=== PATIENT | male | born 1955 | race African-American/Black ===

== ENCOUNTER 2022-07-12 10:23 | Outpatient (CLI) | payer OTHER, SELFPAY ==
[2022-07-12 19:48] LABS: Basophils Percent Auto 0.7 % (0.2-1.2); Eosinophils Percent Auto 0.2 % (0-4.4); Hematocrit 48.3 % (42.0-52.0); Hemoglobin 15.7 g/dL (14.0-18.0); Immature Granulocyte Absolute 0.02 K/mm3 (0.00-0.031); Immature Granulocyte Percent A 0.3 % (0-0.5); Immature Platelet Fraction Pct 3.3 % (0.9-11.2); Lymphocytes Absolute Auto 1.31 K/mm3 (0.9-3.2); Lymphocytes Percent Auto 21.5 % (18.3-44.2); Mean Corpuscular HGB Conc 32.5 g/dl (32-36); Mean Corpuscular Hemoglobin 26.8 pg (26-34); Mean Corpuscular Volume 82.4 fl (80-100); Mean Platelet Volume 10.5 fl (7.4-10.4); Monocytes Absolute Auto 0.6 K/mm3 (0.1-0.6); Monocytes Percent Auto 10.2 % (2.6-8.5); Neutrophils Absolute Auto 4.1 K/mm3 (1.3-6.7); Neutrophils Percent Auto 67.1 % (45.5-73.1); Platelet Count Result 134 k/mm3 (150-375); Red Blood Count 5.86 M/mm3 (4.6-6.20); Red Cell Distribution Width 15.9 % (11.5-14.5); White Blood Count 6.1 K/mm3 (4.5-10.0)
[2022-07-12 19:52] LABS: Alanine Aminotransferase 26 U/L (6-50); Albumin Level 4.3 g/dL (3.5-5.1); Alkaline Phosphatase 68 U/L (38-126); Anion Gap 13 mmol/L (8-16); Aspartate Amino Transferase 45 U/L (17-59); Bilirubin,Total 2.9 mg/dL (0.2-1.3); Blood Urea Nitrogen 15 mg/dL (9-20); Calcium 9.3 mg/dL (8.4-10.2); Carbon Dioxide 24 mmol/L (22-30); Chloride 103 mmol/L (98-107); Cholesterol 194 mg/dL (0-200); Estimated Glomerular Filt Rate > 60; Glucose 94 mg/dL (65-110); HDL Direct 91 mg/dL; Potassium 3.8 mmol/L (3.4-5.0); Sodium 140 mmol/L (137-145); Triglycerides 66 mg/dL (<150)
[2022-07-12 19:58] LABS: Hemoglobin A1C 4.7 % (<5.7)
[2022-07-12 20:03] LABS: LDL Cholesterol Direct 75 mg/dL
[2022-07-12 20:19] LABS: Prostate Specific Antigen 1.1 ng/mL (< OR = 4.0)
== END 2022-07-12 10:24 | disposition home or self-care (01) ==
LOC: ANHGOSHLAB 10:29
PROVIDERS: PCP Family Medicine; Visit Provider Family Medicine
DX: Z12.5 Encounter for screening for malignant neoplasm of prostate (principal); I10 Essential (primary) hypertension; E78.5 Hyperlipidemia, unspecified; R53.83 Other fatigue; R73.01 Impaired fasting glucose
CPT/HCPCS: 36415; 80053; 80061; 83036; 84153; 85025; 85055; G0103

== ENCOUNTER 2022-11-07 09:45 | Outpatient (CLI) | payer OTHER, SELFPAY ==
[2022-11-07 21:14] LABS: Alanine Aminotransferase 28 U/L (6-50); Albumin Level 4.3 g/dL (3.5-5.1); Alkaline Phosphatase 76 U/L (38-126); Anion Gap 8 mmol/L (8-16); Aspartate Amino Transferase 51 U/L (17-59); Bilirubin Indirect 1.8 mg/dL (0-1.1); Blood Urea Nitrogen 21 mg/dL (9-20); Calcium 9.4 mg/dL (8.4-10.2); Carbon Dioxide 31 mmol/L (22-30); Chloride 100 mmol/L (98-107); Estimated Glomerular Filt Rate > 60; Glucose 99 mg/dL (65-110); Potassium 3.2 mmol/L (3.4-5.0); Sodium 139 mmol/L (137-145)
[2022-11-08 03:21] LABS: Iron 164 ug/dL (49-181)
[2022-11-08 03:31] LABS: Percent Iron Saturation 36 % (20-50)
== END 2022-11-07 09:46 | disposition home or self-care (01) ==
LOC: ANHGOSHLAB 09:46
PROVIDERS: PCP Family Medicine; Visit Provider Family Medicine
DX: E80.6 Other disorders of bilirubin metabolism (principal); R79.89 Other specified abnormal findings of blood chemistry; Z13.228 Encounter for screening for other metabolic disorders; R74.01 Elevation of levels of liver transaminase levels
CPT/HCPCS: 36415; 80053; 81256; 82248; 82728; 83540; 83550

== ENCOUNTER 2023-03-14 14:13 | Outpatient (CLI) | payer OTHER, SELFPAY ==
[2023-03-14 15:23] LABS: Basophils Percent Auto 0.5 % (0.2-1.2); Eosinophils Percent Auto 0.4 % (0-4.4); Hematocrit 44.7 % (42.0-52.0); Hemoglobin 14.8 g/dL (14.0-18.0); Immature Granulocyte Absolute 0.03 K/mm3 (0.00-0.031); Immature Granulocyte Percent A 0.4 % (0-0.5); Lymphocytes Absolute Auto 1.97 K/mm3 (0.9-3.2); Lymphocytes Percent Auto 25.1 % (18.3-44.2); Mean Corpuscular HGB Conc 33.1 g/dl (32-36); Mean Corpuscular Hemoglobin 24.9 pg (26-34); Mean Corpuscular Volume 75.3 fl (80-100); Mean Platelet Volume 10.3 fl (7.4-10.4); Monocytes Absolute Auto 1.1 K/mm3 (0.1-0.6); Monocytes Percent Auto 14.2 % (2.6-8.5); Neutrophils Absolute Auto 4.7 K/mm3 (1.3-6.7); Neutrophils Percent Auto 59.4 % (45.5-73.1); Platelet Count Result 203 k/mm3 (150-375); Red Blood Count 5.94 M/mm3 (4.6-6.20); Red Cell Distribution Width 15.9 % (11.5-14.5); White Blood Count 7.9 K/mm3 (4.5-10.0)
[2023-03-14 19:06] LABS: Alanine Aminotransferase 39 U/L (6-50); Albumin Level 4.3 g/dL (3.5-5.1); Alkaline Phosphatase 104 U/L (38-126); Anion Gap 9 mmol/L (8-16); Aspartate Amino Transferase 69 U/L (17-59); Bilirubin,Total 3.4 mg/dL (0.2-1.3); Blood Urea Nitrogen 34 mg/dL (9-20); Calcium 10.1 mg/dL (8.4-10.2); Carbon Dioxide 37 mmol/L (22-30); Chloride 91 mmol/L (98-107); Estimated Glomerular Filt Rate > 60; Glucose 109 mg/dL (65-110); Potassium 2.8 mmol/L (3.4-5.0); Sodium 137 mmol/L (137-145)
== END 2023-03-14 14:14 | disposition home or self-care (01) ==
LOC: ANHGOSHLAB 14:14
PROVIDERS: PCP Family Medicine; Visit Provider Family Medicine
DX: R53.83 Other fatigue (principal); Z13.228 Encounter for screening for other metabolic disorders
CPT/HCPCS: 36415; 80053; 85025

== ENCOUNTER → 2023-03-19 07:56 | Outpatient (CLI) | payer OTHER, SELFPAY ==
--- NOTE | ~2023-03-19 | US_ITS ---
Limited Abdominal Sonogram: Real-time sonographic imaging of the right upper quadrant was performed. Clinical History: Increasing total bilirubin Findings: The liver appears mildly echogenic, with no evidence of mass lesion or bile duct dilatatio n. Main portal vein demonstrates normal direction of flow. The gallbladder is well distended, and con tains multiple gallstones. No gallbladder wall thickening. The common bile duct measures 4 mm. The v isualized pancreas, aorta, and IVC are unremarkable. Impression: Cholelithiasis. Diffuse fatty infiltration of liver. Reviewed, dictated and finalized at location M. Impression: Cholelithiasis. Diffuse fatty infiltration of liver.
== END ==
PROVIDERS: PCP Family Medicine; Visit Provider Family Medicine
DX: E80.6 Other disorders of bilirubin metabolism (principal); K80.20 Calculus of gallbladder without cholecystitis without obstruction; K76.0 Fatty (change of) liver, not elsewhere classified
CPT/HCPCS: 76705

== ENCOUNTER 2023-09-23 09:36 | Outpatient (CLI) | payer OTHER, SELFPAY ==
[2023-09-23 20:07] LABS: Anion Gap 9 mmol/L (8-16); Blood Urea Nitrogen 22 mg/dL (9-20); Calcium 9.7 mg/dL (8.4-10.2); Carbon Dioxide 35 mmol/L (22-30); Chloride 93 mmol/L (98-107); Estimated Glomerular Filt Rate 52; Glucose 91 mg/dL (65-110); Potassium 2.7 mmol/L (3.4-5.0); Sodium 137 mmol/L (137-145)
== END 2023-09-23 09:37 | disposition home or self-care (01) ==
LOC: ANHGOSHLAB 09:37
PROVIDERS: PCP Family Medicine; Visit Provider Family Medicine
DX: Z13.228 Encounter for screening for other metabolic disorders (principal)
CPT/HCPCS: 36415; 80048

== ENCOUNTER 2023-10-10 08:57 | Outpatient (CLI) | payer OTHER, SELFPAY ==
[2023-10-10 12:49] LABS: Anion Gap 9 mmol/L (8-16); Blood Urea Nitrogen 25 mg/dL (9-20); Calcium 9.4 mg/dL (8.4-10.2); Carbon Dioxide 23 mmol/L (22-30); Chloride 104 mmol/L (98-107); Estimated Glomerular Filt Rate > 60; Glucose 99 mg/dL (65-110); Potassium 4.7 mmol/L (3.4-5.0); Sodium 136 mmol/L (137-145)
== END 2023-10-10 08:58 | disposition home or self-care (01) ==
LOC: ANHGOSHLAB 08:59
PROVIDERS: PCP Family Medicine; Visit Provider Family Medicine
DX: Z13.228 Encounter for screening for other metabolic disorders (principal)
CPT/HCPCS: 36415; 80048

== ENCOUNTER 2024-03-30 09:17 | Outpatient (CLI) | payer OTHER, SELFPAY ==
[2024-03-30 13:11] LABS: Alanine Aminotransferase 31 U/L (6-50); Albumin Level 3.9 g/dL (3.5-5.1); Alkaline Phosphatase 74 U/L (38-126); Anion Gap 9 mmol/L (4-12); Aspartate Amino Transferase 69 U/L (17-59); Bilirubin,Total 1.6 mg/dL (0.2-1.3); Blood Urea Nitrogen 21 mg/dL (9-20); Calcium 9.1 mg/dL (8.4-10.2); Carbon Dioxide 29 mmol/L (22-30); Chloride 99 mmol/L (98-107); Cholesterol 119 mg/dL (0-200); Estimated Glomerular Filt Rate > 60; Glucose 106 mg/dL (65-110); HDL Direct 70 mg/dL; Potassium 3.8 mmol/L (3.4-5.0); Sodium 137 mmol/L (137-145); Triglycerides 62 mg/dL (<150)
[2024-03-30 13:15] LABS: Basophils Percent Auto 0.3 % (0.2-1.2); Eosinophils Percent Auto 0.3 % (0-4.4); Hematocrit 33.6 % (42.0-52.0); Hemoglobin 10.8 g/dL (14.0-18.0); Immature Granulocyte Absolute 0.02 K/mm3 (0.00-0.031); Immature Granulocyte Percent A 0.3 % (0-0.5); Immature Platelet Fraction Pct 2.8 % (0.9-11.2); Lymphocytes Absolute Auto 1.81 K/mm3 (0.9-3.2); Lymphocytes Percent Auto 28.5 % (18.3-44.2); Mean Corpuscular HGB Conc 32.1 g/dl (32-36); Mean Corpuscular Hemoglobin 26.3 pg (26-34); Mean Corpuscular Volume 81.8 fl (80-100); Monocytes Absolute Auto 0.9 K/mm3 (0.1-0.6); Monocytes Percent Auto 14.2 % (2.6-8.5); Neutrophils Absolute Auto 3.6 K/mm3 (1.3-6.7); Neutrophils Percent Auto 56.4 % (45.5-73.1); Platelet Count Result 146 k/mm3 (150-375); Red Blood Count 4.11 M/mm3 (4.6-6.20); Red Cell Distribution Width 18.6 % (11.5-14.5); White Blood Count 6.3 K/mm3 (4.5-10.0)
[2024-03-30 13:22] LABS: LDL Cholesterol Direct 45 mg/dL
== END 2024-03-30 09:18 | disposition home or self-care (01) ==
PROVIDERS: PCP Family Medicine; Visit Provider Family Medicine
DX: R53.83 Other fatigue (principal); E78.5 Hyperlipidemia, unspecified; I10 Essential (primary) hypertension; Z12.5 Encounter for screening for malignant neoplasm of prostate; Z13.228 Encounter for screening for other metabolic disorders
CPT/HCPCS: 36415; 80053; 80061; 84153; 85025; 85055; G0103

== ENCOUNTER 2024-04-05 08:10 | Outpatient (CLI) | payer OTHER, SELFPAY ==
[2024-04-05 15:06] LABS: Iron 122 ug/dL (49-181)
[2024-04-05 15:16] LABS: Percent Iron Saturation 41 % (20-50)
[2024-04-05 16:33] LABS: Folic Acid 3.2 ng/mL (2.76->20)
== END 2024-04-05 08:11 | disposition home or self-care (01) ==
PROVIDERS: PCP Family Medicine; Visit Provider Family Medicine
DX: D64.9 Anemia, unspecified (principal); D50.9 Iron deficiency anemia, unspecified
CPT/HCPCS: 36415; 82607; 82728; 82746; 83540; 83550

== ENCOUNTER 2024-10-05 11:34 | Outpatient (CLI) | payer OTHER, SELFPAY ==
[2024-10-05 13:47] LABS: Basophils Percent Auto 0.5 % (0.2-1.2); Eosinophils Percent Auto 0.5 % (0-4.4); Hematocrit 41.5 % (42.0-52.0); Hemoglobin 13.1 g/dL (14.0-18.0); Immature Granulocyte Absolute 0.01 K/mm3 (0.00-0.031); Immature Granulocyte Percent A 0.2 % (0-0.5); Immature Platelet Fraction Pct 3.2 % (0.9-11.2); Lymphocytes Absolute Auto 1.82 K/mm3 (0.9-3.2); Lymphocytes Percent Auto 27.7 % (18.3-44.2); Mean Corpuscular HGB Conc 31.6 g/dl (32-36); Mean Corpuscular Hemoglobin 25.8 pg (26-34); Mean Corpuscular Volume 81.7 fl (80-100); Mean Platelet Volume 11.4 fl (7.4-10.4); Monocytes Absolute Auto 0.7 K/mm3 (0.1-0.6); Monocytes Percent Auto 10.9 % (2.6-8.5); Neutrophils Percent Auto 60.2 % (45.5-73.1); Platelet Count Result 119 k/mm3 (150-375); Red Blood Count 5.08 M/mm3 (4.6-6.20); Red Cell Distribution Width 14.9 % (11.5-14.5); White Blood Count 6.6 K/mm3 (4.5-10.0)
[2024-10-05 14:08] LABS: Alanine Aminotransferase 23 U/L (6-50); Albumin Level 3.9 g/dL (3.5-5.1); Alkaline Phosphatase 87 U/L (38-126); Anion Gap 7 mmol/L (4-12); Aspartate Amino Transferase 68 U/L (17-59); Bilirubin,Total 1.4 mg/dL (0.2-1.3); Blood Urea Nitrogen 14 mg/dL (9-20); Calcium 9.1 mg/dL (8.4-10.2); Carbon Dioxide 33 mmol/L (22-30); Chloride 100 mmol/L (98-107); Estimated Glomerular Filt Rate > 60; Glucose 92 mg/dL (65-110); Potassium 3.6 mmol/L (3.4-5.0); Sodium 140 mmol/L (137-145)
[2024-10-05 14:34] LABS: Vitamin D 25 Hydroxy < 12.8 ng/mL
[2024-10-05 15:09] LABS: Hemoglobin A1C 4.6 % (<5.7)
--- OUTSIDE RECORDS SUMMARY | 2024-10-07 17:55 | XMS_ITS | CONTINUITY OF CARE DOCUMENT ---
Author Name [email or web address] Address Unknown Organization [facility] Address [address] [place] [address] Phone [phone] Care Team Providers Care Flatwork Tier Name Role Phone Jesus Moseley MD Unavailable PITA DAWKINS MD Unavailable [phone] PITA DAWKINS MD Unavailable [phone] PROBLEMS Condition Status Date Provider Notes CORONARY ARTERY DISEASE, FAMILY HX active D anah Carlos HYPERLIPIDEMIA active Marla Carlos CELLULITIS active Marla Carlos GOUT, HX OF active Marla Carlos ENCOUNTERS Date Type Provider Location Encounter Diagnosis - In-person encounter Office Visit Jesus Moseley MD [facility] VITAL SIGNS Date Observation Value Provider blood pressure, diastolic, left arm 79 mm [Hg] Kvng [place] blood pressure, systolic, left arm 127 mm [Hg] Kvng [place] blood pressure, diastolic 79 mm[Hg] Gracie seph [place] blood pressure, systolic 124 mm[Hg] Lukasz eph [place] pulse rate 79 /min [facility] [place] oxygen saturation, oximetry 97 % K[facility] [place] respiratory rate E&M 16 /min [facility] [place] weight E&M 237 [lb_av] K[facility]ng [place] ALLERGIES Allergy Name Onset Date Reaction Criticality Status LISINOPRIL High Criticality active HISTORY OF MEDICATION USE Medication Status Instructions Dates Provider Indications Com ments CLONIDINE HCL 0.1 MG ORAL TABLET completed 1 tablet by mouth 2 daily - Jesus Mosleey MD NORVASC 10 MG ORAL TABLET active ONE TAB. DAILY Jesus Moseley MD HYDROCHLOROTHIAZIDE 25 MG ORAL TABLET active 1 tablet by mouth daily Kvng Hernandez SOCIAL HISTORY Date Observation Value Provider social history E&M Marital Statu s: L ronel with family/friends E thnicity: Jesus Moseley MD physical exercise, f requency, days per week yes [employer] caffeine use, averag e drinks per day no [employer] alcohol use, average drinks per day social basis only [employer] smoking status Non-smoker [employer] MENTAL STATUS Date Observation Value Provider assessment of judgme nt and insight E&M Alert and oriented to time, place and person. Mood and affect are normal. Jesus Moseley MD INSURANCE PROVIDERS Payer name Policy type / Coverage type [place] red republican ID [facility] [id number] 1 TREATMENT PLAN Date Name Performer Follow-up on tests: T he following medications were removed from the medication list: Clonidine Hcl 0.1 Mg Tabs (Clonidine hcl) ..... 1 tablet by mouth 2 daily His updated medication list for this problem includes: Hydrochlorothiazide 25 Mg Tabs (Hydrochlorothiazide) ..... 1 tablet by mouth daily Norvasc 10 Mg Tabs (Amlodipine besylate) ..... One tab. daily w ill have him taper his clonidine. Jesus Moseley MD Follow-up on tests Jesus Moseley MD
--- OUTSIDE RECORDS SUMMARY | 2024-10-07 17:55 | XMS_ITS | Clinical Summary ---
Author Organization [facility] Address [address] [place] [address] Care Team Providers Care Band Reamer Machine Operator Name Role Phone Hector Rhodes MD Primary Care Provider [phone] [facility]non-owned Affiliates and Associated Physician Practices is amultiple site organization consisting of ambulatory clinics and hospital sitesin [place], [place], [place] and [place]. This disclosure is being madepursuant to the Care Everywhere program and may not contain all information available regarding this patient. Last updated 18.[employer] Allergies No known active allergies Medications * Be aware that medications may not be up to date on this document. Alwaysverify current medications with the patient. Medication Sig Dispensed Refills Start Date End Date Status allopurinol (ZYLOPRIM) 300 MG tablet allopurinol 300 mg tablet DAILY Active amLODIPine (NORVASC) 5 MG tablet amlodipine 5 mg tablet DAILY Active atenolol (TENORMIN) 25 MG tablet atenolol 25 mg tablet DAILY Active atorvastatin (LIPITOR) 40 MG tablet atorvastatin 40 mg tablet HS Active chlorthalidone (HYGROTON) 25 MG tablet Take 1 tablet every day by oral route. Active Ossian-3 Fatty Acids (FISH OIL) 1000 MG capsule Fish Oil DAILY Active Active Problems Problem Noted Date Diagnosed Date Alcoholic cirrhosis of liver without ascites Overview (03/05/2019): 03/05/19 Fibroscan CAP 313, E 18.8 kPa Social History Tobacco Use Types Packs/Day Years Used Date Smoking Tobacco: Never Smokeless Tobacco: Never Alcohol Use Standard Drinks/Week Comments Yes 7 (1 standard drink = 0.6 oz pur e alcohol) vodka/water Sex and Gender Information Value Date Recorded Sex Assigned at Not on file Gender Identity Not on file Sexual Orientation Not on file Last Filed Vital Signs Vital Sign Reading Time Taken Comments Blood Pressure 115/64 08/10/2019 9:25 AM SLIP PRESSER Pulse 76 08/10/2019 9:25 AM SLIP PRESSER Temperature 37 ??C (98.6 ??F) 08/10/2019 9:25 AM SLIP PRESSER Respiratory Rate 18 08/10/2019 9:25 AM SLIP PRESSER Oxygen Saturation 98% 08/10/2019 9:25 AM SLIP PRESSER Inhaled Oxygen Concentration - - Weight 96.3 kg (212 lb 4.8 oz) 08/10/2019 9:25 A M SLIP PRESSER Height 193 cm (6' 4 ) 08/10/2019 9:25 AM SLIP PRESSER Body Mass Index 25.84 08/10/2019 9:25 AM SLIP PRESSER Plan of Treatment Health Maintenance Due Date Last Done Comments COLOGUARD (AGES 45-75) - COL ON CA SCREENING 1953 COLON MONITORING 1953 COLONOSCOPY - COLON CA SCREENING 1953 CT COLONOGRAPHY - COLON CA SCREENING 1953 Colorectal Cancer Screening 1953 FIT - COLON CA SCREENING 1953 FLEX SIG - COLON CA SCREENING 1953 MEDICARE AWV ? 12 MONTHS 1953 HEPATITIS C SCREENING 10/20/1971 DTAP/TDAP/TD VACCINES (1 - Tdap) 1972 PNEUMOCOCCAL VACCINE 50+ (1 of 2 - PCV) 1972 ZOSTER VACCINE (1 of 2) 2003 HEPATITIS B VACCINE (1 of 3 - Risk 3-dose series) 2013 Respiratory Syncytial Virus (RSV) Vaccine Pt: or over 60 yrs (1 - Risk 60-74 years 1-dose series) 2013 SCREENING FOR DIABETES 03/05/2022 03/05/2019 COVID-19 VACCINE (1 - 2023-2 5 season) 2024 INFLUENZA VACCINE (#1) 2024 6, 09/20/2014, 07/08/2013 DEPRESSION SCREENING 09/15/2024 HIB VACCINE Aged Out No longer eligi ble based on patient's age to complete this topic HPV VACCINE Aged Out No longer eligi ble based on patient's age to complete this topic MENINGOCOCCAL (Group B) VACCINE Aged Out No longer eligible b ased on patient's age to complete this topic MENINGOCOCCAL VACCINE Aged Out No darrius catherine eligible based on patient's age to complete this topic Goals Goal Patient Goal Type Associated Problems Recent Progress Patient-Stated? Author Medication Management General On track( 019 9:32 AM SLIP PRESSER) Ramu Celestin, RN Note: Expected end date: Interventions: Take all medications as prescribed Let your doctor know right away about any changes in your medications Make sure to request a refill of your medication at least one week prior to your last dose Procedures Procedure Name Priority Date/Time Associated Diagnosis Comments COMPREHENSIVE METABOLIC PANEL Routine 03/05/2019 12:09 PM CDT Cirrhosis of liver without ascites, unspecified hepatic cirrhosis type (HCC) from Last 3 Months or Most Recently Relevant to Health Maintenance Results * (ABNORMAL) COMPREHENSIVE METABOLIC PANEL (03/05/2019 12:09 PM CDT) BUN 14 7 - 26 mg/dL 03/05/2019 1:[address] [facility] Creatinine 1.0 0.6 - 1.2 mg/dL 03/05/2019 1:48 PM [facility] Sodium 135(L) 136 - 145 mmol/L 03/05/2019 1:[address] [facility] Potassium 3.3(L) 3.5 - 4.5 mmol/L 03/05/2019 1:[address] [facility] Chloride 96(L) 98 - 107 mmol/L 03/05/2019 1:[address] [facility] CO2 25 22 - 29 mmol/L 03/05/2019 1:[address] [facility] Glucose 88 70 - 115 mg/dL 03/05/2019 1:[address] [facility] Calcium 10.1 8.4 - 10.2 mg/dL 03/05/2019 1:[address] [facility] Protein Total 8.1 6.0 - 8.3 g/dL 03/05/2019 1:[address] [facility] Albumin 3.6 3.4 - 5.0 g/dL 03/05/2019 1:48 PM [facility] Bilirubin Total 3.1(H) 0.2 - 1.2 mg/dL 03/05/2019 1:48 PM [facility] Alkaline Phosphatase 84 40 - 150 Units/L 03/05/2019 1:48 PM [facility] ALT 30 0 - 55 Units/L 03/05/2019 1:48 PM [facility] AST 48(H) 5 - 34 Units/L 03/05/2019 1:48 PM [facility] Anion Gap 17 8 - 18 03/05/2019 1:48 PM [facility] BUN/Creatinine Ratio 14 7 - 23 03/05/2019 1:48 PM [facility] Osmolality Calculated 280 270 - 300 mOsm/kg 03/05/2019 1:48 PM [facility] Albumin/Globulin Ratio 0.8(L) 1.1 - 2.3 03/05/2019 1:48 PM [facility] eGFR >60 >60 mL/min/1.7 3 m2 03/05/2019 1:48 PM [facility] Blood BLOOD SPECIMEN / Unknown Lab Venipuncture / Unknown 03/05/2019 12:09 PM CDT 03/05/2019 12:33 PM CDT Robel Ervin MD LAB - CHEMISTRY ORDERABLES [facility] [address] [place] [address] from Last 3 Months or Most Recently Relevant to Health Maintenance Care Teams Band Reamer Machine Operator Relationship Specialty Start Date End Date Hector Rhodes MD PCP - General Internal Medicine 12/17/18
--- OUTSIDE RECORDS SUMMARY | 2024-10-07 17:55 | XMS_ITS | Referral Summary ---
Author Organization [facility] Address [address] [place] [address] Care Team Providers Care Supervisor Special Services Name Role Phone Hector Rhodes MD Primary Care Provider [phone] Source Comments [facility],non-owned Affiliates and Associated Physician Practices is amultiple site organization consisting of ambulatory clinics and hospital sitesin [place], [place]. This disclosure is being madepursuant to the Care Everywhere program and may not contain all information available regarding this patient. Last updated 18.[employer] Allergies No known active allergies Medications * [...] tablet every day by oral route. Active Cuervo-3 Fatty Acids (FISH OIL) 1000 MG capsule [...] Comments Blood Pressure 115/64 08/10/2019 9:25 AM DOUBLE HEAD MACHINE OPERATOR Pulse 76 08/10/2019 9:25 AM DOUBLE HEAD MACHINE OPERATOR Temperature 37 ??C (98.6 ??F) 08/10/2019 9:25 AM DOUBLE HEAD MACHINE OPERATOR Respiratory Rate 18 08/10/2019 9:25 AM DOUBLE HEAD MACHINE OPERATOR Oxygen Saturation 98% 08/10/2019 9:25 AM DOUBLE HEAD MACHINE OPERATOR Inhaled Oxygen Concentration - - Weight 96.3 kg (212 lb 4.8 oz) 08/10/2019 9:25 A M DOUBLE HEAD MACHINE OPERATOR Height 193 cm (6' 4 ) 08/10/2019 9:25 AM DOUBLE HEAD MACHINE OPERATOR Body Mass Index 25.84 08/10/2019 9:25 AM DOUBLE HEAD MACHINE OPERATOR Plan of Treatment Not on file Goals Goal Patient Goal Type Associated Problems Recent Progress Patient-Stated? Author Medication Management General On track( 019 9:32 AM DOUBLE HEAD MACHINE OPERATOR) Ramu Celestin, RN Note: Expected end date: [...] 7 - 26 mg/dL 03/05/2019 1:48 PM [facility] Creatinine 1.0 0.6 - 1.2 mg/dL 03/05/2019 1:48 PM [facility] Sodium 135(L) 136 - 145 mmol/L 03/05/2019 1:48 PM [facility] Potassium 3.3(L) 3.5 - 4.5 mmol/L 03/05/2019 1:48 PM [facility] Chloride 96(L) 98 - 107 mmol/L 03/05/2019 1:48 PM [facility] CO2 25 22 - 29 mmol/L 03/05/2019 1:48 PM [facility] Glucose 88 70 - 115 mg/dL 03/05/2019 1:48 PM [facility] Calcium 10.1 8.4 - 10.2 mg/dL 03/05/2019 1:48 PM [facility] Protein Total 8.1 6.0 - 8.3 g/dL 03/05/2019 1:48 PM [facility] Albumin 3.6 3.4 - 5.0 g/dL 03/05/2019 1:48 PM [facility] Bilirubin Total 3.1(H) 0.2 - 1.2 mg/dL 03/05/2019 1:48 PM [facility] Alkaline Phosphatase 84 40 - 150 Units/L 03/05/2019 1:48 PM [facility] ALT 30 0 - 55 Units/L 03/05/2019 1:48 PM [facility] AST 48(H) 5 - 34 Units/L 03/05/2019 1:48 PM [facility] Anion Gap 17 8 - 18 03/05/2019 1:48 PM [facility] BUN/Creatinine Ratio 14 7 - 23 03/05/2019 1:48 PM [facility] Osmolality Calculated 280 270 - 300 mOsm/kg 03/05/2019 1:48 PM [facility] Albumin/Globulin Ratio 0.8(L) 1.1 - 2.3 03/05/2019 1:48 PM [facility] eGFR >60 >60 mL/min/1.7 3 m2 03/05/2019 1:48 PM [facility] Blood BLOOD SPECIMEN / Unknown Lab Venipuncture / Unknown 03/05/2019 12:09 PM CDT 03/05/2019 12:33 PM T Robel Ervin MD LAB - CHEMISTRY ORDERABLES [facility] [address] [place] [address], [facility] [phone] from Last 3 Months or Most Recently Relevant to Health Maintenance Care Teams Supervisor Special Services Relationship Specialty Start Date End Date Hector Rhodes MD PCP - General Internal Medicine 12/17/18
--- OUTSIDE RECORDS SUMMARY | 2024-10-07 17:56 | XMS_ITS | Patient Health Summary ---
Author Organization [facility] [employer] Address [address] [place] [address] Care Team Providers Care Programming Specialist Name Role Phone Hector Rhodes MD Primary Care Provider [phone] Note from [facility],non-owned Affiliates and Associated Physician Practices is amultiple site organization consisting of ambulatory clinics and hospital sitesin [place], [place], [place] and [place]. This disclosure is being madepursuant to the Care Everywhere program and may not contain all information available regarding this patient. Last updated 18.[facility] [employer] Allergies No known active allergies Medications * Be aware that medications may not be up to date on this document. Alwaysverify current medications with the patient. * allopurinol (ZYLOPRIM) 300 MG tablet allopurinol 300 mg tablet DAILY * amLODIPine (NORVASC) 5 MG tablet amlodipine 5 mg tablet DAILY * atenolol (TENORMIN) 25 MG tablet atenolol 25 mg tablet DAILY * atorvastatin (LIPITOR) 40 MG tablet atorvastatin 40 mg tablet HS * chlorthalidone (HYGROTON) 25 MG tablet Take 1 tablet every day by oral route. * [place]-3 Fatty Acids (FISH OIL) 1000 MG capsule Fish Oil DAILY Active Problems Problem Noted Date Diagnosed Date Alcoholic cirrhosis of liver without ascites Social History Tobacco Use Types Packs/Day Years [...] Comments Blood Pressure 115/64 08/10/2019 9:25 AM TRAINMASTER Pulse 76 08/10/2019 9:25 AM TRAINMASTER Temperature 37 ??C (98.6 ??F) 08/10/2019 9:25 AM TRAINMASTER Respiratory Rate 18 08/10/2019 9:25 AM TRAINMASTER Oxygen Saturation 98% 08/10/2019 9:25 AM TRAINMASTER Inhaled Oxygen Concentration - - Weight 96.3 kg (212 lb 4.8 oz) 08/10/2019 9:25 A M TRAINMASTER Height 193 cm (6' 4 ) 08/10/2019 9:25 AM TRAINMASTER Body Mass Index 25.84 08/10/2019 9:25 AM TRAINMASTER Procedures * CT LIVER ELASTOGRAPHY(Performed 03/05/2019) Performed for Cirrhosis of liver without ascites, unspecified hepatic cirrhosis type (HCC) * CHRISTOPHER STAINING PATTERNS REFLEXED(Performed 03/05/2019) Performed for Cirrhosis of liver without ascites, unspecified hepatic cirrhosis type (HCC) * PT-INR [facility](Performed 03/05/2019) Performed for Cirrhosis of liver without ascites, unspecified hepatic cirrhosis type (HCC) * VITAMIN D 25-HYDROXY(Performed 03/05/2019) Performed for Cirrhosis of liver without ascites, unspecified hepatic cirrhosis type (HCC) * TRANSFERRIN(Performed 03/05/2019) Performed for Cirrhosis of liver without ascites, unspecified hepatic cirrhosis type (HCC) * IRON BLOOD(Performed 03/05/2019) Performed for Cirrhosis of liver without ascites, unspecified hepatic cirrhosis type (HCC) * CERULOPLASMIN(Performed 03/05/2019) Performed for Cirrhosis of liver without ascites, unspecified hepatic cirrhosis type (HCC) * MYNOR BLOOD SCREEN W/REFLEX TITER(Performed 03/05/2019) Performed for Cirrhosis of liver without ascites, unspecified hepatic cirrhosis type (HCC) * MITOCHONDRIAL ANTIBODY SCREEN(Performed 03/05/2019) Performed for Cirrhosis of liver without ascites, unspecified hepatic cirrhosis type (HCC) * COMPREHENSIVE METABOLIC PANEL(Performed 03/05/2019) Performed for Cirrhosis of liver without ascites, unspecified hepatic cirrhosis type (HCC) Results * CT LIVER ELASTOGRAPHY (03/05/2019 3:52 PM CDT) Artem Lawton MD - 03/05/2019 3:52 PM CDT Artem Aguilar MD ? 03/05/2019 ??3:52 PM Diagnosis: Cirrhosis RN verified patient has no implanted devices and NPO for prior 3 hours. Vital signs taken, procedure explained and consent signed. Date of Exam: 03/05/2019 Liver Stiffness: (E, kPa) median: ??18.8 IQR (interquartile range): ?? 1.6 IQR/Median% (ideally < 30%): ??9 CAP (controlled attenuation parameter): ??313 Technical Difficulty: None Ordering Provider: Robel Ervin MD Phone Fax Fibroscan interpretation: I have personally reviewed the Fibroscan report and associated tracings. The calculated liver stiffness (E, kPa) indicates that: The probability of advanced liver fibrosis is: high. The loss of ultrasound signal, (controlled attenuation parameter, CAP [dB/m]), indicates that the probability of hepatic steatosis is: high. Artem Aguilar MD The following criteria are used to indicate the probability of advanced (stage 3-4) fibrosis: < 7.0 kPa: low 7.0-8.9 kPa: low to moderate 9.0-14.9 kPa: moderate 15-20 kPa: high > 20 kPa: very high Liver stiffness > 20 kPa is also associated with a high probability of complications of portal hypertension including varices and ascites. Liver stiffness > 50 kPa is associated with a high risk of variceal bleeding. Note: Liver stiffness is increased by factors other than fibrosis including passive congestion, infiltrative processes, active alcoholism, biliary obstruction and marked inflammation. The interpretation of the Fibroscan result provided above may not have taken such factors into account. Disease etiology also influences Fibroscan cutoff values for fibrosis stages and the following cutoffs have been proposed (Hermelinda et al, Clin Gastro Hepatol 2015; 13:27-36): Cutoffs for Stage 3 and Stage 4 fibrosis respectively: Hepatitis B: >9 and >11.7 kPa Hepatitis C: >9.5 and >12.5 kPa HCV-HIV: >11 and >14 kPa Cholestatic liver diseases: >10 and >17.9 kPa NAFLD/HAILE: >10 and >14 kPa CAP estimates of steatosis: normal <200 dB/m maybe present 200 to 250 dB/m moderate 250-300 dB/m substantial > 300 dB/m (Note that Fibroscan is not a quantitative measure of liver fat and the risk of NAFLD progression is unrelated to the degree of steatosis.) These criteria are estimates and may change as additional supporting data becomes available. [email or web address] Robel Ervin MD PROCEDURE/MINOR SURGICAL ORDERABLES * PT-INR [facility] (03/05/2019 12:09 PM CDT) [facility] PT 14.0 12.1 - 14.8 Seconds 03/05/2019 1:08 PM CDT [facility] INR 1.1 See Comment 03/05/2019 1:08 PM CDT [facility] Comment: The suggested therapeutic range for standard coumadin (warfarin) therapy is an INR of 2.0-3.0. For high-risk patients (Mechanical Mitral Valve Prosthesis, etc.), the suggested prophylactic therapeutic range is an INR of 2.5-3.5. Blood BLOOD SPECIMEN / Unknown Lab Venipuncture / Unknown 03/05/2019 12:09 PM CDT 03/05/2019 12:33 PM CDT Robel Ervin MD LAB - COAGULATI ON ORDERABLES Performing Organization Address City/State/[facility] Co de Phone Number [address] [phone] * MITOCHONDRIAL ANTIBODY SCREEN (03/05/2019 12:09 PM CDT) [facility] Mitochondrial M2 Antibody 5.6 0.0 - 20.0 Units 03/09/2019 11:59 AM CDT [facility] Comment: Mitochondrial M2 Antibody Numeric Result Interpretation: ?<20.1 Units: ??Negative ?20.1 - 24.9 Units: ??Equivocal ?>24.9 Units: ??Positive ? Blood BLOOD SPECIMEN / Unknown Lab Venipuncture / Unknown 03/05/2019 12:09 PM CDT 03/05/2019 12:33 PM CDT Robel Ervin MD LAB [place] [address], [facility] [phone] * CHRISTOPHER STAINING PATTERNS REFLEXED (03/05/2019 12:09 PM CDT) Speckled Pattern 1:80 03/06/20 19 3:07 PM CDT [facility] ([facility]) Note Comment 03/06/2019 3:07 PM CDT [facility] ([facility]) Comment: A positive MYNOR result may occur in healthy individuals (low titer) or be associated with a variety of diseases. ??See interpretation chart which is not all inclusive: Pattern ?Antigen Detected ??Suggested Disease Association ? Homogeneous ??DNA(ds,ss), ? SLE - High titers ? Nucleosomes, ? Histones ?Drug-induced SLE ? Speckled ? Sm, [employer], SCL-70, ??SLE,MCTD,PSS (diffuse form), ? SS-A/SS-B ? Sjogrens ? Nucleolar ?SCL-70, PM-1/SCL ??High titers Scleroderma, ? PM/DM ? Centromere ?? Centromere ?PSS (limited form) w/Crest ? syndrome variable ? Nuclear Dot ??[id number] ??Primary Biliary Cirrhosis ? Nuclear ?GP210, ?Primary Biliary Cirrhosis Membrane ? diandra A,B,C ? Blood BLOOD SPECIMEN / Unknown Lab Venipuncture / Unknown 03/05/2019 12:09 PM CDT 03/05/2019 12:33 PM CDT Narrative [facility] ([facility]) - 03/06/2019 3:07 PM CDT Performed at: ??01 - [facility], [place], [place] ??[id number] Crew Chief: David Roper PhD, Phone: ??[phone] Robel Ervin MD LAB - PATHOLOGY /CYTOLOGY ORDERABLES Performing Organization Address [facility] Co de Phone Number [facility] ([facility]) [address] [phone] * (ABNORMAL) MYNOR BLOOD SCREEN W/REFLEX TITER (03/05/2019 12:09 PM CDT) Pathologist [facility] MYNOR Positive(A ) 03/06/2019 3:07 PM CDT [facility] ([facility]) Comment: ? Negative ?? <1:80 ? Borderline ??1:80 ? Positive ?? >1:80 Note: Specimen is icteric. Blood BLOOD SPECIMEN / Unknown Lab Venipuncture / Unknown 03/05/2019 12:09 PM CDT 03/05/2019 12:33 PM CDT [facility]ative [facility] - 03/06/2019 3:07 PM CDT Performed at: ??01 - [facility] [address] [place], [place] ??[id number] Crew Chief: David Roper PhD, Phone: ??[phone] Robel Ervin MD LAB - CHEMISTRY ORDERABLES Performing Organization Address [facility]/ZIP Co de Phone Number [facility] ([facility]) [address] [phone] * TRANSFERRIN (03/05/2019 12:09 PM CDT) Pathologist [facility] Transferrin 288 174 - 382 mg/dL 03/05/2019 2:08 PM CDT [facility] Transferrin Saturation % 41 16 - 50 % 03/05/2019 2:08 PM CDT [facility] Blood BLOOD SPECIMEN / Unknown Lab Venipuncture / Unknown 03/05/2019 12:09 PM CDT 03/05/2019 12:33 PM CDT Robel Ervin MD LAB - CHEMISTRY ORDERABLES Performing Organization Address [facility]/ZIP Co de Phone Number [address] [phone] * CERULOPLASMIN (03/05/2019 12:09 PM CDT) Ceruloplasmin 38 20 - 60 mg/dL 03/05/2019 1:28 PM CDT [facility] Blood BLOOD SPECIMEN / Unknown Lab Venipuncture / Unknown 03/05/2019 12:09 PM CDT 03/05/2019 12:33 PM CDT Robel Ervin MD LAB - CHEMISTRY ORDERABLES Performing Organization Address [facility] Co de Phone Number [address] [phone] * VITAMIN D 25-HYDROXY (03/05/2019 12:09 PM CDT) Vitamin D, 25 Hydroxy 39.3 See comment: ng/mL 03/05/2019 1:52 PM CDT [facility] Comment: The recommendations for 25-Hydroxy Vitamin D clinical decision points are as follows: ? Deficient: ? <20.0 ng/mL ? Insufficient: ??20.0 - 29.9 ng/mL ? Sufficient: ? > or =30.0 ng/mL If the 25-Hydroxy Vitamin D results are inconsitent with clinical evidence, it is recommended that follow-up testing using a method such as LC/MS/MS be performed to confirm the result. Reference: ?The Endocrine Society Clinical Practice Guidelines. 2010 ? Blood BLOOD SPECIMEN / Unknown Lab Venipuncture / Unknown 03/05/2019 12:09 PM CDT 03/05/2019 12:33 PM CDT Robel Ervin MD LAB - CHEMISTRY ORDERABLES [facility] [address] [phone] * (ABNORMAL) COMPREHENSIVE METABOLIC PANEL (03/05/2019 12:09 PM CDT) BUN 14 7 - 26 mg/dL 03/05/2019 1:48 PM [facility] Creatinine 1.0 0.6 - 1.2 mg/dL 03/05/2019 1:48 PM [facility] Sodium 135(L) 136 - 145 mmol/L 03/05/2019 1:48 PM [facility] Potassium 3.3(L) 3.5 - 4.5 mmol/L 03/05/2019 1:48 PM [facility] Chloride 96(L) 98 - 107 mmol/L 03/05/2019 1:48 PM [facility] CO2 25 22 - 29 mmol/L 03/05/2019 1:48 PM [facility] Glucose 88 70 - 115 mg/dL 03/05/2019 1:48 PM [facility] Calcium 10.1 8.4 - 10.2 mg/dL 03/05/2019 1:48 PM [facility] Protein Total 8.1 6.0 - 8.3 g/dL 03/05/2019 1:48 PM [facility] Albumin 3.6 3.4 - 5.0 g/dL 03/05/2019 1:48 PM [facility] Bilirubin Total 3.1(H) 0.2 - 1.2 mg/dL 03/05/2019 1:48 PM [facility] Alkaline Phosphatase 84 40 - 150 Units/L 03/05/2019 1:48 PM T [facility] ALT 30 0 - 55 Units/L 03/05/2019 1:48 PM [facility] AST 48(H) 5 - 34 Units/L 03/05/2019 1:48 PM [facility] Anion Gap 17 8 - 18 03/05/2019 1:48 PM [facility] BUN/Creatinine Ratio 14 7 - 23 03/05/2019 1:48 PM [facility] Osmolality Calculated 280 270 - 300 mOsm/kg 03/05/2019 1:48 PM [facility] Albumin/Globulin Ratio 0.8(L) 1.1 - 2.3 03/05/2019 1:48 PM [facility] eGFR >60 >60 mL/min/1.7 3 m2 03/05/2019 1:48 PM [facility] Blood BLOOD SPECIMEN / Unknown Lab Venipuncture / Unknown 03/05/2019 12:09 PM CDT 03/05/2019 12:33 PM CDT Robel Ervin MD LAB - CHEMISTRY ORDERABLES [address] [phone] * IRON BLOOD (03/05/2019 12:09 PM CDT) Iron 148 50 - 175 mcg/dL 03/05/2019 2:08 PM T [facility] Blood BLOOD SPECIMEN / Unknown Lab Venipuncture / Unknown 03/05/2019 12:09 PM CDT 03/05/2019 12:33 PM CDT Robel Ervin MD LAB - CHEMISTRY ORDERABLES [address] [phone] Care Teams Programming Specialist Relationship Specialty Start Date End Date Hector Rhodes MD PCP - General Internal Medicine 12/17/18
== END 2024-10-05 11:35 | disposition home or self-care (01) ==
LOC: ANHGOSHLAB 11:34
PROVIDERS: PCP Family Medicine; Visit Provider Family Medicine
DX: R73.9 Hyperglycemia, unspecified (principal); I10 Essential (primary) hypertension; E55.9 Vitamin D deficiency, unspecified
CPT/HCPCS: 36415; 80053; 82306; 83036; 84443; 85025; 85055

== ENCOUNTER 2024-12-07 08:01 | Outpatient (CLI) | payer OTHER, SELFPAY ==
--- NOTE | ~2024-12-07 | CT_ITS ---
EXAMINATION: CT abdomen pelvis wo/w con DATE: 12/07/2024 08:50 INDICATION: Microscopic hematuria TECHNIQUE: Computed tomography (CT) of the abdomen and pelvis was performed without intravenous contr ast. CT of the abdomen and pelvis was then performed with a total of 130 mL Omnipaque-350 intravenous contrast using a double-bolus technique for simultaneous opacification of the renal parenchyma and r enal collecting system. Automated exposure control and iterative reconstruction technique were employ ed. The dose-length product was 1491.78 mGy-cm. COMPARISON: None FINDINGS: Aside right lower lobe nodule and a couple small splenic calcifications consistent with old granuloma tous disease. No pleural effusion. Mild cardiomegaly. Small pericardial effusion. Diffuse hepatic cathy atosis. There are couple enhancing lesions the right hepatic lobe measuring 2.4 cm and 1.3 cm. Multip le high attenuation gallstones layering in the dependent aspect of the normal appearing gallbladder. Pancreas and bilateral adrenal glands are normal. No bowel obstruction. Suture line at the tip the ce cum likely related to prior appendectomy. A few small low-attenuation left renal cysts the largest measuring 1.7 cm. 3 mm nonobstructing stone at the upper pole of the left kidney. No ureteral stones or hydronephrosis. Contrast extends througho ut both ureters into the bladder. Portions of both ureters are decompressed without discernible contr ast. No filling defects or urothelial irregularities identified along the contrast opacified portions of the bilateral renal collecting systems and ureters. Bladder is incompletely distended with wall t hickening and trabeculated mucosal surface likely related to chronic outlet obstruction from the enla rged prostate which measures 4.8 x 4.0 cm. Small left and moderate-sized right fat-containing inguina l hernias. Very large left hydrocele which measures 16.4 x 12.1 x 9.6 cm. No free intraperitoneal gas or fluid. No pathologically enlarged abdominal or pelvic lymphadenopathy. Severe lumbar spondylosis. IMPRESSION: 1. Nonobstructing 3 mm left ureteral stone. 2. Diffuse bladder wall thickening due to at least in part to incomplete distention but with trabecul ated mucosal surface likely related to chronic outlet obstruction from the enlarged prostate. 3. Diffuse hepatic steatosis with a couple enhancing lesions in the right hepatic lobe measuring up t o 2.4 cm. Recommend further evaluation with multiphase pre and postcontrast MRI or CT. 4. Very large left hydrocele. 5. Small left and moderate-sized right fat-containing inguinal hernias. 7. Cardiomegaly with small pericardial effusion. Reviewed, dictated and finalized at location B. IMPRESSION: 1. Nonobstructing 3 mm left ureteral stone. 2. Diffuse bladder wall thickening due to at least in part to incomplete disten tion but with trabeculated mucosal surface likely related to chronic outlet obs truction from the enlarged prostate. 3. Diffuse hepatic steatosis with a couple enhancing lesions in the right hepat ic lobe measuring up to 2.4 cm. Recommend further evaluation with multiphase pr e and postcontrast MRI or CT. 4. Very large left hydrocele. 5. Small left and moderate-sized right fat-containing inguinal hernias. 7. Cardiomegaly with small pericardial effusion.
--- NOTE | ~2024-12-07 | XR_ITS ---
XR abdomen/kub 1V Ordering provider: Dalton Miller MD History: . microscopic hematuria . Comparison: None. FINDINGS: BOWEL: Nonobstructive bowel gas pattern. ORGANOMEGALY: None. SIGNIFICANT PATHOLOGIC CALCIFICATIONS: None. Gases are overlapping the left kidney. OTHER: No free air is seen under the diaphragm. IMPRESSION: NO ACUTE ABDOMINAL FINDINGS. No definite stones. If still suspicious noncontrast CT is advised. Reviewed, dictated and finalized at location A.
--- OUTSIDE RECORDS SUMMARY | 2024-12-07 08:11 | XMS_ITS | CONTINUITY OF CARE DOCUMENT ---
Author Name jazlyneugeniojazlyneugenio Address Unknown Organization [facility] Address [address] [place] [address] Phone [phone] Care Team Providers Care Field Property Loss Specialist Name Role Phone Pradip GALLARDO, Jesus Unavailable PITA DAWKINS MD Unavailable PITA DAWKINS MD Unavailable PROBLEMS Condition Status Date Provider Notes CORONARY ARTERY DISEASE, FAMILY HX active D anah Carlos HYPERLIPIDEMIA active Marla Carlos CELLULITIS active Marla Carlos GOUT, HX OF active Marla Carlos ENCOUNTERS Date Type Provider Location Encounter Diagnosis - In-person encounter Office Visit Jesus Moseley MD [facility] VITAL SIGNS Date Observation Value Provider [...] tablet by mouth 2 daily - Jesus Moseley MD NORVASC 10 MG ORAL TABLET active [...] Payer name Policy type / Coverage type [place] [employer] party ID [facility] [id number] 1 TREATMENT PLAN Date Name Performer Follow-up [...] clonidine. Jesus Moseley MD Follow-up on tests eJsus Moseley MD
--- OUTSIDE RECORDS SUMMARY | 2024-12-07 08:11 | XMS_ITS | Clinical Summary ---
Author Organization [employer] Address [address] [place] [address] Care Team Providers Care Education Professor Name Role Phone Hector Rhodes MD Primary Care Provider [phone] Source Comments [facility],non-owned Affiliates and Associated Physician Practices is amultiple site organization consisting of ambulatory clinics and hospital sitesin [place], [place], [place] and [place]. This disclosure is being madepursuant to the Care Everywhere program and may not contain all information available regarding this patient. Last updated 18.[facility] Allergies No known active allergies Medications * [...] tablet every day by oral route. Active [place]-3 Fatty Acids (FISH OIL) 1000 MG capsule [...] Comments Blood Pressure 115/64 08/10/2019 9:25 AM RESOURCE CENTER [employer] Pulse 76 08/10/2019 9:25 AM RESOURCE CENTER TEACHER Temperature 37 C (98.6 F) 08/10/2019 9:25 AM RESOURCE CENTER TEACHER Respiratory Rate 18 08/10/2019 9:25 AM RESOURCE CENTER TEACHER Oxygen Saturation 98% 08/10/2019 9:25 AM RESOURCE CENTER TEACHER Inhaled Oxygen Concentration - - Weight 96.3 kg (212 lb 4.8 oz) 08/10/2019 9:25 A M [employer]OURCE CENTER TE[employer] Height 193 cm (6' 4 ) 08/10/2019 9:25 AM RESOURCE CENTER TE[employer]ER Body Mass Index 25.84 08/10/2019 9:25 AM RESOURCE CENTER TE[employer]ER Plan of Treatment Health Maintenance Due Date Last Done Comments COLOGUARD (AGES 45-75) - COL ON CA SCREENING 1955 COLON MONITORING 1953 COLONOSCOPY - COLON CA SCREENING 1953 CT COLONOGRAPHY - COLON CA SCREENING 1955 Colorectal Cancer Screening 1953 FIT - COLON CA SCREENING 1953 FLEX SIG - COLON CA SCREENING 1955 MEDICARE AWV 12 MONTHS 1953 HEPATITIS C SCREENING 10/20/1971 [...] complete this topic MENINGOCOCCAL (Group B) VACCINE SHARED DECISION-MAKING Aged Out No longer eligible based on patient's age to complete this topic MENINGOCOCCAL GROUPS A/C/Y/W VACCINE Aged Out No longer eligible b ased on patient's age to complete this topic Goals Goal Patient Goal Type Associated Problems Recent Progress Patient-Stated? Author Medication Management General On track( 019 9:32 AM RESOURCE CENTER TE[employer]ER) Ramu Celestin, RN Note: Expected end date: [...] liver without ascites, unspecified hepatic cirrhosis type from Last 3 Months or Most Recently Relevant to Health Maintenance Results * (ABNORMAL) COMPREHENSIVE METABOLIC PANEL (03/05/2019 12:09 PM CDT) BUN 14 7 - 26 mg/dL 03/05/2019 1:48 PM [facility] Creatinine 1.0 0.6 - 1.2 mg/dL 03/05/2019 1:48 PM [facility] Sodium 135(L) 136 - 145 mmol/L 03/05/2019 1:48 PM [facility] Potassium 3.3(L) 3.5 - 4.5 mmol/L 03/05/2019 1:48 PM [facility] Chloride 96(L) 98 - 107 mmol/L 03/05/2019 1:48 PM [facility] CO2 25 22 - 29 mmol/L 03/05/2019 1:48 PM [facility] Glucose 88 70 - 115 mg/dL 03/05/2019 1:48 PM [facility] Calcium 10.1 8.4 - 10.2 mg/dL 03/05/2019 1:48 PM [facility] Protein Total 8.1 6.0 - 8.3 g/dL 03/05/2019 1:48 PM [facility] Albumin 3.6 3.4 - 5.0 g/dL 03/05/2019 1:48 PM [facility] Bilirubin Total 3.1(H) 0.2 - 1.2 mg/dL 03/05/2019 1:48 PM [facility] Alkaline Phosphatase 84 40 - 150 Units/L 03/05/2019 1:48 PM [facility] ALT 30 0 - 55 Units/L 03/05/2019 1:48 PM [facility] AST 48(H) 5 - 34 Units/L 03/05/2019 1:48 PM [facility] Anion Gap 17 8 - 18 03/05/2019 1:48 PM [facility] BUN/Creatinine Ratio 14 7 - 23 03/05/2019 1:48 PM [facility] Osmolality Calculated 280 270 - 300 mOsm/kg 03/05/2019 1:48 PM [facility] Albumin/Globulin Ratio 0.8(L) 1.1 - 2.3 03/05/2019 1:48 PM [facility] eGFR >60 >60 mL/min/1.7 3 m2 03/05/2019 1:48 PM [facility] Blood BLOOD SPECIMEN / Unknown Lab Venipuncture / Unknown 03/05/2019 12:09 PM CDT 03/05/2019 12:33 PM CDT Robel Ervin MD LAB - CHEMISTRY ORDERABLES [address] [phone] from Last 3 Months or Most Recently Relevant to Health Maintenance Care Teams Education Professor Relationship Specialty Start Date End Date Hector Rhodes MD PCP - General Internal Medicine 12/17/18
[2024-12-07 08:31] LABS: Estimated Glomerular Filt Rate > 60
== END 2024-12-07 08:02 | disposition home or self-care (01) ==
PROVIDERS: PCP Family Medicine; Visit Provider Urology
DX: R31.29 Other microscopic hematuria (principal)
CPT/HCPCS: 74018; 74178; Q9967

== ENCOUNTER 2025-01-05 07:55 | Outpatient (CLI) | payer OTHER, SELFPAY ==
--- OUTSIDE RECORDS SUMMARY | 2025-01-05 08:07 | XMS_ITS | Clinical Summary ---
Author Organization [facility] [facility] [facility] Address [address] [place] [address] Care Team Providers Care Vice President Research Name Role Phone Hector Rhodes MD Primary Care Provider [phone] Source Comments [facility],non-owned Affiliates and Associated Physician Practices is amultiple site organization consisting of ambulatory clinics and hospital sitesin [place], [place], [place] and [place]. This disclosure is being madepursuant to the Care Everywhere program and may not contain all information available regarding this patient. Last updated 18.[facility] Allergies No known active allergies Medications * Be aware that medications may not be up to date on this document. Alwaysverify current medications with the patient. allopurinol (ZYLOPRIM) 300 MG tablet allopurinol 300 mg tablet DAILY Active amLODIPine (NORVASC) 5 MG tablet amlodipine 5 mg tablet DAILY Active atenolol (TENORMIN) 25 MG tablet atenolol 25 mg tablet DAILY Active atorvastatin (LIPITOR) 40 MG tablet atorvastatin 40 mg tablet HS Active chlorthalidone (HYGROTON) 25 MG tablet Take 1 tablet every day by oral route. Active [place]-3 Fatty Acids (FISH OIL) 1000 MG capsule Fish Oil DAILY Activ e Active Problems Problem Noted Date Diagnosed Date [...] Recorded Sex Assigned at Not on file Legal Sex Male 9:15 AM CDT Gender Identity Not on file Sexual Orientation Not on file Last Filed Vital Signs Vital Sign Reading Time Taken Comments Blood Pressure 115/64 08/10/2019 9:25 AM GUN PERFORATOR Pulse 76 08/10/2019 9:25 AM GUN PERFORATOR Temperature 37 C (98.6 F) 08/10/2019 9:25 AM GUN PERFORATOR Respiratory Rate 18 08/10/2019 9:25 AM GUN PERFORATOR Oxygen Saturation 98% 08/10/2019 9:25 AM GUN PERFORATOR Inhaled Oxygen Concentration - - Weight 96.3 kg (212 lb 4.8 oz) 08/10/2019 9:25 A M GUN PERFORATOR Height 193 cm (6' 4 ) 08/10/2019 9:25 AM GUN PERFORATOR Body Mass Index 25.84 08/10/2019 9:25 AM GUN PERFORATOR Plan of Treatment Health Maintenance Due Date [...] SCREENING FOR DIABETES 03/05/2022 03/05/2019 COVID-19 VACCINE ( - 2023-2 5 season) 2024 DEPRESSION SCREENING 09/15/2024 INFLUENZA VACCINE (Season Ended) 2025 09/20/2015, 09/20/2014, 07/08/2013 HIB VACCINE Aged Out No longer eligi [...] Management General On track( 019 9:32 AM GUN PERFORATOR) Ramu Celestin, RN Note: Expected end date: [...] 7 - 26 mg/dL 03/05/2019 1:48 PM [facility] Creatinine 1.0 0.6 - 1.2 mg/dL 03/05/2019 1:48 PM [facility] Sodium 135(L) 136 - 145 mmol/L 03/05/2019 1:48 PM [facility] Potassium 3.3(L) 3.5 - 4.5 mmol/L 03/05/2019 1:48 PM [facility] Chloride 96(L) 98 - 107 mmol/L 03/05/2019 1:48 PM [facility] CO2 25 22 - 29 mmol/L 03/05/2019 1:48 PM [facility] Glucose 88 70 - 115 mg/dL 03/05/2019 1:48 PM [facility] Calcium 10.1 8.4 - 10.2 mg/dL 03/05/2019 1:48 PM [facility] Protein Total 8.1 6.0 - 8.3 g/dL 03/05/2019 1:48 PM [facility] Albumin 3.6 3.4 - 5.0 g/dL 03/05/2019 1:48 PM [facility] Bilirubin Total 3.1(H) 0.2 - 1.2 mg/dL 03/05/2019 1:48 PM [facility] Alkaline Phosphatase 84 40 - 150 Units/L 03/05/2019 1:48 PM [facility] ALT 30 0 - 55 Units/L 03/05/2019 1:48 PM [facility] AST 48(H) 5 - 34 Units/L 03/05/2019 1:48 PM [facility] Anion Gap 17 8 - 18 03/05/2019 1:48 PM [facility] BUN/Creatinine Ratio 14 7 - 23 03/05/2019 1:48 PM [facility] Osmolality Calculated 280 270 - 300 mOsm/kg 03/05/2019 1:48 PM [facility] Albumin/Globulin Ratio 0.8(L) 1.1 - 2.3 03/05/2019 1:48 PM [facility] eGFR >60 >60 mL/min/1.7 3 m2 03/05/2019 1:48 PM [facility] Blood BLOOD SPECIMEN / Unknown Lab Venipuncture / Unknown 03/05/2019 12:09 PM CDT 03/05/2019 12:33 PM T us Robel Ervin MD LAB - CHEMISTRY ORDERAB LES Final Result [facility] [address] [phone] from Last 3 Months or Most Recently Relevant to Health Maintenance Insurance MEDICARE MEDICARE Care Teams Vice President Research Relationship Specialty Start Date End Date Hector Rhodes MD PCP - General Internal Medicine 12/17/18
--- OUTSIDE RECORDS SUMMARY | 2025-01-05 08:07 | XMS_ITS | CONTINUITY OF CARE DOCUMENT ---
Author Name jazlyneugeniojazlyneugenio Address Unknown Organization [facility] Address [address] [place] [address] Phone [phone] Care Team Providers Care Change Management Consultant Name Role Phone Pradip GALLARDO, Jesus Unavailable PITA DAWKINS MD Unavailable PITA DAWKINS MD Unavailable [phone] PROBLEMS Condition Status Date Provider Notes CORONARY ARTERY DISEASE, FAMILY HX active D anah Carlos HYPERLIPIDEMIA active Marla Carlos CELLULITIS active Marla Carlos GOUT, HX OF active Marla Carlos ENCOUNTERS Date Type Provider Location Encounter Diagnosis - In-person encounter Office Visit Jesus Moseley MD [place] [facility] VITAL SIGNS Date Observation Value Provider [...] Payer name Policy type / Coverage type [place] red democrat ID [facility] [id number] 1 TREATMENT PLAN Date Name Performer Follow-up [...] Jesus Moseley MD Follow-up on tests Jesus oMseley MD
--- NOTE | 2025-01-05 08:30 | ECG_ITS ---
Test Date: 2025-01-05 08:33:26 Measurements Intervals [place] Rate: 61 P: 30 [place]: 159 QRS: -27 QRSD: 95 T: -20 QT: 430 QTc: 435 Interpretive Statements SINUS RHYTHM POSSIBLE LEFT ATRIAL ENLARGEMENT POSSIBLE LEFT VENTRICULAR HYPERTROPHY DELAYED PRECORDIAL R/S TRANSITION MODERATE T-WAVE ABNORMALITY, CONSIDER ANTEROLAT/INF ISCHEMIA BASELINE ARTIFACT- I, III, AVR, AVL, AVF, V1 ABNORMAL ECG No previous ECG available for comparison Electronically Signed On 01-05-2025 08:46:18 CDT by Jose Partida D.O.
[2025-01-05 08:59] LABS: Anion Gap 12 mmol/L (4-12); Blood Urea Nitrogen 14 mg/dL (9-20); Calcium 9.2 mg/dL (8.4-10.2); Carbon Dioxide 29 mmol/L (22-30); Chloride 100 mmol/L (98-107); Estimated Glomerular Filt Rate > 60; Glucose 98 mg/dL (65-110); Potassium 3.5 mmol/L (3.4-5.0); Sodium 141 mmol/L (137-145)
[2025-01-05 09:02] LABS: INR 1.1; Prothrombin Time 15.1 Seconds (11.1-14.7)
[2025-01-05 09:03] LABS: Partial Thromboplastin Time 28.2 Seconds (22.3-36.8)
== END 2025-01-05 07:56 | disposition home or self-care (01) ==
LOC: ANHSURGERY 08:00
PROVIDERS: Anesthesiology; PCP Family Medicine; Visit Provider Urology
DX: N43.3 Hydrocele, unspecified (principal); Z79.899 Other long term (current) drug therapy; I10 Essential (primary) hypertension; K70.10 Alcoholic hepatitis without ascites; E78.5 Hyperlipidemia, unspecified
CPT/HCPCS: 36415; 80048; 85610; 85730; 87086; 93005

== ENCOUNTER 2025-02-03 08:02 | Outpatient (CLI) | payer OTHER, SELFPAY ==
--- NOTE | ~2025-02-03 | NM_ITS ---
EXAMINATION: NM eunice stress w perfusion DATE: 02/03/2025 12:37 INDICATION: Abnormal electrocardiogram TECHNIQUE: Rest images were obtained following intravenous administration of 11.44 mCi Tc99m tetrofos min (Myoview). The patient was infused intravenously with Lexiscan (Regadenoson). Then, 34.3 mCi Tc99 m tetrofosmin (Myoview) was administered intravenously, and stress images were obtained. Data was rec onstructed into short axis and horizontal and vertical long axis SPECT images. Gated SPECT images wer e also obtained. COMPARISON: None. FINDINGS: There is no definite reversible or fixed perfusion abnormality to suggest ischemia or infar ction. There is normal left ventricular chamber size, wall motion and ejection fraction. Left ventr icular ejection fraction measures 68%. IMPRESSION: 1. Normal myocardial perfusion at rest and during stress. 2. Left ventricular ejection fraction measuring 68%. Reviewed, dictated and finalized at location A.
--- OUTSIDE RECORDS SUMMARY | 2025-02-03 08:06 | XMS_ITS | Clinical Summary ---
Author Organization [employer] [facility] [employer] [facility] Address [address] [place] [address] Care Team Providers Care Freight Broker Agent Name Role Phone Hector Rhodes MD Primary Care Provider [phone] Source Comments [facility],non-owned Affiliates and Associated Physician Practices is amultiple site organization consisting of ambulatory clinics and hospital sitesin [place], [place], [place] and [place]. This disclosure is being madepursuant to the Care Everywhere program and may not contain all information available regarding this patient. Last updated 18.[facility] Allergies No known active allergies Medications * [...] tablet every day by oral route. Active [place]-3 Fatty Acids (FISH OIL) 1000 MG capsule [...] Comments Blood Pressure 115/64 08/10/2019 9:25 AM YARD HAND Pulse 76 08/10/2019 9:25 AM YARD HAND Temperature 37 C (98.6 F) 08/10/2019 9:25 AM YARD HAND Respiratory Rate 18 08/10/2019 9:25 AM YARD HAND Oxygen Saturation 98% 08/10/2019 9:25 AM YARD HAND Inhaled Oxygen Concentration - - Weight 96.3 kg (212 lb 4.8 oz) 08/10/2019 9:25 A M YARD HAND Height 193 cm (6' 4 ) 08/10/2019 9:25 AM YARD HAND Body Mass Index 25.84 08/10/2019 9:25 AM YARD HAND Plan of Treatment Health Maintenance Due Date [...] Management General On track( 019 9:32 AM YARD HAND) Ramu Celestin, RN Note: Expected end date: [...] 7 - 26 mg/dL 03/05/2019 1:48 PM [facility] Creatinine 1.0 0.6 - 1.2 mg/dL 03/05/2019 1:48 PM [facility] Sodium 135(L) 136 - 145 mmol/L 03/05/2019 1:48 PM [facility] Potassium 3.3(L) 3.5 - 4.5 mmol/L 03/05/2019 1:48 PM [facility] Chloride 96(L) 98 - 107 mmol/L 03/05/2019 1:48 PM [facility] CO2 25 22 - 29 mmol/L 03/05/2019 1:48 PM [facility] Glucose 88 70 - 115 mg/dL 03/05/2019 1:48 PM [facility] Calcium 10.1 8.4 - 10.2 mg/dL 03/05/2019 1:48 PM [facility] Protein Total 8.1 6.0 - 8.3 g/dL 03/05/2019 1:48 PM [facility] Albumin 3.6 3.4 - 5.0 g/dL 03/05/2019 1:48 PM [facility] Bilirubin Total 3.1(H) 0.2 - 1.2 mg/dL 03/05/2019 1:48 PM [facility] Alkaline Phosphatase 84 40 - 150 Units/L 03/05/2019 1:48 PM [facility] ALT 30 0 - 55 Units/L 03/05/2019 1:48 PM [facility] AST 48(H) 5 - 34 Units/L 03/05/2019 1:48 PM [facility] Anion Gap 17 8 - 18 03/05/2019 1:48 PM [facility] BUN/Creatinine Ratio 14 7 - 23 03/05/2019 1:48 PM [facility] Osmolality Calculated 280 270 - 300 mOsm/kg 03/05/2019 1:48 PM [facility] Albumin/Globulin Ratio 0.8(L) 1.1 - 2.3 03/05/2019 1:48 PM [facility] eGFR >60 >60 mL/min/1.7 3 m2 03/05/2019 1:48 PM [facility] Blood BLOOD SPECIMEN / Unknown Lab Venipuncture / Unknown 03/05/2019 12:09 PM CDT 03/05/2019 12:33 PM CDT Robel Ervin MD LAB - CHEMISTRY ORDERAB LES Final Result [facility] [address] [place] [address] from Last 3 Months or Most Recently Relevant to Health Maintenance Insurance MEDICARE MEDICARE Care Teams Freight Broker Agent Relationship Specialty Start Date End Date Hector Rhodes MD PCP - General Internal Medicine 12/17/18
--- OUTSIDE RECORDS SUMMARY | 2025-02-03 08:06 | XMS_ITS | CONTINUITY OF CARE DOCUMENT ---
Author Name jazlyneugenio jazlyneugenio Address Unknown Organization [facility] Address [address] [place] [address] Phone [phone] Care Team Providers Care Greens Laborer Name Role Phone Pradip GALLARDO, Jesus Unavailable PITA DAWKINS MD Unavailable [phone] PITA DAWKINS MD Unavailable [phone] PROBLEMS Condition Status Date Provider Notes CORONARY ARTERY DISEASE, FAMILY HX active D anah Carlos HYPERLIPIDEMIA active Marla Carlos CELLULITIS active Marla Carlos GOUT, HX OF active Marla Carlos ENCOUNTERS Date Type Provider Location Encounter Diagnosis - In-person encounter Office Visit Jesus Moseley MD [place] Office VITAL SIGNS Date Observation Value Provider [...] Payer name Policy type / Coverage type [place] red alliance party ID [facility] [id number] 1 TREATMENT PLAN Date Name Performer Follow-up [...]
--- NOTE | 2025-02-03 08:12 | EST_ITS ---
Patient Info Name: James Estrada Age: 69 years : 1955 Gender: Male Ht: 74 in Wt: 190 lbs BSA: 2.12 m2 Exam Date: 02/03/2025 8:12 AM Patient Status: O Admit Date: 02/03/2025 Exam Type: CA stress eunice w NM A regadenoson stress test was performed. Staff Referring Physician: Naina Evans Attending Provider: Naina Evans Exercise Technologist: Rach Traylor Exercise Physician: Jose Partida DO Summary 1. 1. Negative lexiscan stress test for ischemic ST changes by ECG criteria. 2. 2. Baseline hypertension. 3. 3. Nuclear scan to follow and will be reported separately. Please correlate with it. 4. 4. Patient informed of the above results. Protocol: Lexiscan Stress ECG Details Stage: REST Duration (min): 1 min : 52 sec HR (bpm): 60 SBP (mmHg): 146 DBP (mmHg): 95 Stage: REST Duration (min): 7 min : 20 sec HR (bpm): 59 SBP (mmHg): 146 DBP (mmHg): 95 Stage: STAGE 1 Duration (min): 1 min : 0 sec HR (bpm): 71 SBP (mmHg): 152 DBP (mmHg): 98 Stage: RECOVERY Duration (min): 1 min : 0 sec HR (bpm): 84 SBP (mmHg): 152 DBP (mmHg): 98 Stage: RECOVERY Duration (min): 2 min : 0 sec HR (bpm): 80 SBP (mmHg): 144 DBP (mmHg): 92 Stage: RECOVERY Duration (min): 3 min : 0 sec HR (bpm): 82 SBP (mmHg): 138 DBP (mmHg): 90 Stage: RECOVERY Duration (min): 3 min : 4 sec HR (bpm): 81 SBP (mmHg): 138 DBP (mmHg): 90 Rest HR: 59 bpm Peak HR: 85 bpm Rest Sys BP: 146 mmHg Peak Sys BP: 152 mmHg Max Pred HR: 149 bpm % Max Pred HR: 57 % Target HR: 127 bpm Max RPP: 12,920 bpm*mmHg Termination Reason: Completed protocol Cardiac Symptoms: None Total Time: 1 min : 0 sec Rest Suero BP: 95 mmHg Peak Suero BP: 98 mmHg Total Dose: 0.4 mg Resting ECG Sinus rhythm, borderline ST-T wave abnormality. Stress ECG No ST changes. Arrhythmias None. Report Signatures
== END 2025-02-03 08:03 | disposition home or self-care (01) ==
PROVIDERS: PCP Family Medicine; Visit Provider Family Medicine
DX: Z01.818 Encounter for other preprocedural examination (principal); R94.31 Abnormal electrocardiogram [ECG] [EKG]; I10 Essential (primary) hypertension
CPT/HCPCS: 78452; 93017; A9502; J2785

== ENCOUNTER 2025-02-22 01:15 | Day surgery (SDC) | payer OTHER, SELFPAY ==
[2024-12-31 15:12] VITALS: BMI 24.5
--- NOTE | 2024-12-31 15:23 | PC.NURSE ---
Addendum entered by Anais Duong RN 02/10/25 09:15: Called pt with new date and time of surgery, no other changes in status or meds, pt passed his stress test so plans to proceed with surgery as below. All reviewed w pt and questions answered. FRIDA Report to the Outpatient Waiting Room, entrance under the green pavilion located off [facility], at time _06:00am on date __02/22/25 . Planned Procedure Time: __07:30am .? Patients may have clear liquids (water, carbonated beverages, clear teas, apple juice) until 3 hours prior to surgery with a maximum of 20 ounces. - No food from midnight until time of surgery and no smoking, or chewing tobacco (or any form of nicotine). No chewing gum, candy or mints. (0515am) Take only the following medications with a SIP of water on the morning of surgery: ____Amlodipine,and Atenolol DO NOT STOP ANY OF YOUR OTHER PRESCRIPTION MEDICATIONS PRIOR TO SURGERY EXCEPT THE FOLLOWING Hold all vitamins and supplements for 3 days per anesthesiologist. Medications to discontinue per physician None Date to take last dose None Original Note: Report to the Outpatient Waiting Room, entrance under the green pavilion located off [facility], at time _0615am on date __01/11/25 . Planned Procedure Time: __0815am .? Time changes happen often and if your time is changed the preop area will call you the afternoon before. - You and your visitor will be asked to self-screen and do not enter if you have any COVID symptoms. Please call surgeon if you need to reschedule. - A mask is optional within the hospital at this time. Patients may have clear liquids (water, carbonated beverages, clear teas, apple juice) until 3 hours prior to surgery with a maximum of 20 ounces. - No food from midnight until time of surgery and no smoking, or chewing tobacco (or any form of nicotine). No chewing gum, candy or mints. (0515am) Take only the following medications with a SIP of water on the morning of surgery: ____Amlodipine,and Atenolol DO NOT STOP ANY OF YOUR OTHER PRESCRIPTION MEDICATIONS PRIOR TO SURGERY EXCEPT THE FOLLOWING Hold all vitamins and supplements for 3 days per anesthesiologist. Medications to discontinue per physician None Date to take last dose None Please no make-up, nail sinhala, hairspray, perfume, deodorant, or body powder the day of surgery.? No jewelry (including any body piercings) or valuables the day of surgery, leave them at home.? Please take a shower or bath the night before, or the morning of, surgery with an antibacterial soap.? Wear comfortable, loose fitting clothing.? - Jewelry must be removed prior to entering the operating room.? Rings and piercings that are not removed may be cut off. - The hospital will not accept responsibility for valuables.? - Please leave all valuables, including medications, at home the day of surgery. If you are going home after surgery, a licensed driver education road instructor must drive you home.? - NO public transportation without another adult if you receive anesthesia. - We recommend that an adult stay with you for 24 hours following discharge. - We also recommend that you do not drive, make important decision, drink alcoholic beverages, or take any drugs that were not prescribed by your health care provider for at least 24 hours after your discharge time. Follow any additional instructions given to you from your surgeon. Telephone instructions given to __Patient and asked if any additional questions and then verbalized understanding. Patient advised to call surgeon office or pre surgery nurse liaison [phone] if any additional questions.
--- OUTSIDE RECORDS SUMMARY | 2025-01-18 00:35 | XMS_ITS | CONTINUITY OF CARE DOCUMENT ---
Author Name jazlyneugeniojazlyneugenio Address Unknown Organization [facility] Address [address] [place] [address] Phone [phone] Care Team Providers Care Art Therapy Certified Supervisor Name Role Phone Pradip GALLARDO, Jesus Unavailable PITA DAWKINS MD Unavailable [phone] PITA DAWKINS MD Unavailable [phone] PROBLEMS Condition Status Date Provider Notes CORONARY ARTERY DISEASE, FAMILY HX active D anah Carlos HYPERLIPIDEMIA active Marla Carlos CELLULITIS active Marla Carlos GOUT, HX OF active Marla Carlos ENCOUNTERS Date Type Provider Location Encounter Diagnosis - In-person encounter Office Visit Jesus Moseley MD [place] [facility] VITAL SIGNS Date Observation Value Provider [...] Payer name Policy type / Coverage type [place] red democrat ID [facility] [id number] 1 TREATMENT PLAN Date Name Performer Follow-up [...]
--- OUTSIDE RECORDS SUMMARY | 2025-01-18 00:35 | XMS_ITS | Clinical Summary ---
Author Organization [facility] [employer] Address [address] [address] Care Team Providers Care Pebble Mill Operator Name Role Phone Hector Rhodes MD Primary Care Provider [phone] Source Comments [facility],non-owned Affiliates and Associated Physician Practices is amultiple site organization consisting of ambulatory clinics and hospital sitesin [place], [place], [place] and [place]. This disclosure is being madepursuant to the Care Everywhere program and may not contain all information available regarding this patient. Last updated 18.[employer] Allergies No known active allergies Medications * [...] tablet every day by oral route. Active [place]-3 Fatty Acids (FISH OIL) 1000 MG capsule [...] Comments Blood Pressure 115/64 08/10/2019 9:25 AM CABLEMAN Pulse 76 08/10/2019 9:25 AM CABLEMAN Temperature 37 C (98.6 F) 08/10/2019 9:25 AM CABLEMAN Respiratory Rate 18 08/10/2019 9:25 AM CABLEMAN Oxygen Saturation 98% 08/10/2019 9:25 AM CABLEMAN Inhaled Oxygen Concentration - - Weight 96.3 kg (212 lb 4.8 oz) 08/10/2019 9:25 A M CABLEMAN Height 193 cm (6' 4) 08/10/2019 9:25 AM CABLEMAN Body Mass Index 25.84 08/10/2019 9:25 AM CABLEMAN Plan of Treatment Health Maintenance Due Date Last Done Comments COLOGUARD (AGES 45-75) - COL ON CA SCREENING 1955 COLON MONITORING 1955 COLONOSCOPY - COLON CA SCREENING 1955 CT COLONOGRAPHY - COLON CA SCREENING 1955 Colorectal Cancer Screening 1955 FIT - COLON CA SCREENING 1955 FLEX SIG - COLON CA SCREENING 1955 HEPATITIS C SCREENING 10/20/1971 DTAP/TDAP/TD VACCINES (1 - Tdap) 1972 PNEUMOCOCCAL VACCINE 50+ (1 of 1 - PCV) 2003 ZOSTER VACCINE (1 of 2) 2003 SCREENING FOR DIABETES 03/05/2022 03/05/2019 COVID-19 VACCINE (1 - 2023-2 5 season) 2024 DEPRESSION SCREENING 09/15/2024 INFLUENZA VACCINE (Season Ended) 2025 09/20/2015, 09/20/2014, 07/08/2013 Respiratory Syncytial Virus (RSV) Vaccine Pt: or over 60 yrs (1 - 1-dose 75+ series) 2028 HEPATITIS B VACCINE Aged Out No longe r eligible based on patient's age to complete this topic HIB VACCINE Aged Out No longer eligi [...] Management General On track( 019 9:32 AM CABLEMAN) Ramu Celestin, RN Note: Expected end date: [...] 7 - 26 mg/dL 03/05/2019 1:48 PM [facility] Creatinine 1.0 0.6 - 1.2 mg/dL 03/05/2019 1:48 PM [facility] Sodium 135(L) 136 - 145 mmol/L 03/05/2019 1:48 PM [facility] Potassium 3.3(L) 3.5 - 4.5 mmol/L 03/05/2019 1:48 PM [facility] Chloride 96(L) 98 - 107 mmol/L 03/05/2019 1:48 PM [facility] CO2 25 22 - 29 mmol/L 03/05/2019 1:48 PM [facility] Glucose 88 70 - 115 mg/dL 03/05/2019 1:48 PM [facility] Calcium 10.1 8.4 - 10.2 mg/dL 03/05/2019 1:48 PM [facility] Protein Total 8.1 6.0 - 8.3 g/dL 03/05/2019 1:48 PM [facility] Albumin 3.6 3.4 - 5.0 g/dL 03/05/2019 1:48 PM [facility] Bilirubin Total 3.1(H) 0.2 - 1.2 mg/dL 03/05/2019 1:48 PM [facility] Alkaline Phosphatase 84 40 - 150 Units/L 03/05/2019 1:48 PM [facility] ALT 30 0 - 55 Units/L 03/05/2019 1:48 PM [facility] AST 48(H) 5 - 34 Units/L 03/05/2019 1:48 PM [facility] Anion Gap 17 8 - 18 03/05/2019 1:48 PM [facility] BUN/Creatinine Ratio 14 7 - 23 03/05/2019 1:48 PM [facility] Osmolality Calculated 280 270 - 300 mOsm/kg 03/05/2019 1:48 PM [facility] Albumin/Globulin Ratio 0.8(L) 1.1 - 2.3 03/05/2019 1:48 PM [facility] eGFR >60 >60 mL/min/1.7 3 m2 03/05/2019 1:48 PM [facility] Blood BLOOD SPECIMEN / Unknown Lab Venipuncture / Unknown 03/05/2019 12:09 PM CDT 03/05/2019 12:33 PM CDT Robel Ervin MD LAB - CHEMISTRY ORDERAB LES Final Result [facility] [address] [place] [address] from Last 3 Months or Most Recently Relevant to Health Maintenance Insurance MEDICARE MEDICARE Care Teams Pebble Mill Operator Relationship Specialty Start Date End Date Hector Rhodes MD PCP - General Internal Medicine 12/17/18
[2025-02-22] VITALS (8 sets, daily range): BP systolic 122–155; BP diastolic 71–94; PULSE 50–60; RESP 14–18; TEMP 36.3–36.4; O2SAT 99–100; BMI 23.8
--- OUTSIDE RECORDS SUMMARY | 2025-02-22 01:18 | XMS_ITS | CONTINUITY OF CARE DOCUMENT ---
Author Name jazlyneugeniojazlyneugenio Address Unknown Organization [facility] Address [address] [place] [address] Phone [phone] Care Team Providers Care Non Clinical Advisor Name Role Phone Pradip GALLARDO, Jesus Unavailable PITA DAWKINS MD Unavailable PITA DAWKINS MD Unavailable [phone] PROBLEMS Condition Status Date Provider Notes CORONARY ARTERY DISEASE, FAMILY HX active D anah Carlos HYPERLIPIDEMIA active Marla Carlos CELLULITIS active Marla Carlos GOUT, HX OF active Marla Carlos ENCOUNTERS Date Type Provider Location Encounter Diagnosis - In-person encounter Office Visit Jesus Moseley MD [place] Office VITAL SIGNS Date Observation Value Provider [...] Payer name Policy type / Coverage type [place] red republican ID [facility] [id number] 1 TREATMENT PLAN Date Name Performer Follow-up [...]
--- OUTSIDE RECORDS SUMMARY | 2025-02-22 01:18 | XMS_ITS | Clinical Summary ---
Author Organization [employer] Address [address] [place] [address] Care Team Providers Care Shroud Line Tier Name Role Phone Hector Rhodes MD Primary Care Provider Source Comments [facility] [employer] [facility],non-owned Affiliates and Associated Physician Practices is amultiple site organization consisting of ambulatory clinics and hospital sitesin [place], [place], [place] and [place]. This disclosure is being madepursuant to the Care Everywhere program and may not contain all information available regarding this patient. Last updated 18.[employer] Allergies No known active allergies Medications * [...] tablet every day by oral route. Active Alpha-3 Fatty Acids (FISH OIL) 1000 MG capsule [...] Comments Blood Pressure 115/64 08/10/2019 9:25 AM STAFF PHYSICAL THERAPIST Pulse 76 08/10/2019 9:25 AM STAFF PHYSICAL THERAPIST Temperature 37 C (98.6 F) 08/10/2019 9:25 AM STAFF PHYSICAL THERAPIST Respiratory Rate 18 08/10/2019 9:25 AM STAFF PHYSICAL THERAPIST Oxygen Saturation 98% 08/10/2019 9:25 AM STAFF PHYSICAL THERAPIST Inhaled Oxygen Concentration - - Weight 96.3 kg (212 lb 4.8 oz) 08/10/2019 9:25 A M STAFF PHYSICAL THERAPIST Height 193 cm (6' 4) 08/10/2019 9:25 AM STAFF PHYSICAL THERAPIST Body Mass Index 25.84 08/10/2019 9:25 AM STAFF PHYSICAL THERAPIST Plan of Treatment Health Maintenance Due Date [...] Management General On track( 019 9:32 AM STAFF PHYSICAL THERAPIST) Ramu Celestin, RN Note: Expected end date: [...] 7 - 26 mg/dL 03/05/2019 1:48 PM [facility] Creatinine 1.0 0.6 - 1.2 mg/dL 03/05/2019 1:48 PM [facility] Sodium 135(L) 136 - 145 mmol/L 03/05/2019 1:48 PM [facility] Potassium 3.3(L) 3.5 - 4.5 mmol/L 03/05/2019 1:48 PM [facility] Chloride 96(L) 98 - 107 mmol/L 03/05/2019 1:48 PM [facility] CO2 25 22 - 29 mmol/L 03/05/2019 1:48 PM [facility] Glucose 88 70 - 115 mg/dL 03/05/2019 1:48 PM [facility] Calcium 10.1 8.4 - 10.2 mg/dL 03/05/2019 1:48 PM [facility] Protein Total 8.1 6.0 - 8.3 g/dL 03/05/2019 1:48 PM [facility] Albumin 3.6 3.4 - 5.0 g/dL 03/05/2019 1:48 PM [facility] Bilirubin Total 3.1(H) 0.2 - 1.2 mg/dL 03/05/2019 1:48 PM [facility] Alkaline Phosphatase 84 40 - 150 Units/L 03/05/2019 1:48 PM [facility] ALT 30 0 - 55 Units/L 03/05/2019 1:48 PM [facility] AST 48(H) 5 - 34 Units/L 03/05/2019 1:48 PM [facility] Anion Gap 17 8 - 18 03/05/2019 1:48 PM [facility] BUN/Creatinine Ratio 14 7 - 23 03/05/2019 1:48 PM [facility] Osmolality Calculated 280 270 - 300 mOsm/kg 03/05/2019 1:48 PM [facility] Albumin/Globulin Ratio 0.8(L) 1.1 - 2.3 03/05/2019 1:48 PM [facility] eGFR >60 >60 mL/min/1.7 3 m2 03/05/2019 1:48 PM [facility] Blood BLOOD SPECIMEN / Unknown Lab Venipuncture / Unknown 03/05/2019 12:09 PM CDT 03/05/2019 12:33 PM CDT Robel Ervin MD LAB - CHEMISTRY ORDERAB LES Final Result [facility] [address] [place] [address] from Last 3 Months or Most Recently Relevant to Health Maintenance Insurance MEDICARE MEDICARE Care Teams Shroud Line Tier Relationship Specialty Start Date End Date Hector Rhodes MD PCP - General Internal Medicine 12/17/18
[2025-02-22 06:33] LABS: Add Urine Microscopic? YES; Appearance Urine Turbid (Clear); Bacteria Urine 1+ /hpf; Bilirubin Urine Negative (Negative); Blood Urine Trace (Negative); Color Urine Yellow (Yellow); Glucose Urine UA Negative (Negative); Ketones Urine Trace mg/dL (Negative); Leukocyte Esterase Ur 3+ LEU/UL (Negative); Nitrate Urine Negative (Negative); Non Pathogenic Casts 0-2; Protein Urine 1+ mg/dL (Negative); Specific Grav Ur 1.016 (1.001-1.035); Squamous Epithelial Cell Urine Occasional /hpf (Few); WBC Urine >100 /hpf (0-3); pH Urine 7.5 (5.0-9.0)
[2025-02-22] MEDS: LACTATED RINGERS 1,000 ML 30 ML IV CONT (06:40)
[2025-02-22 07:21] LABS: INR 1.2; Prothrombin Time 14.7 Seconds (11.1-14.7)
--- NOTE | 2025-02-22 07:36 | P.PNAN_ITS ---
Anes - Initial Pre Proc Eval Procedure: Operation Date: 02/22/25 07:30 Proposed Procedures p Left Hydrocelectomy with Cystoscopy - aDlton Miller MD Date/Time: 02/22/25 07:36 Surgeon: Dalton Miller MD Pre Op Diagnosis: hydrocele Patient Data Age: 69 Gender: M Height: 1.88 m Weight: 86.6 kg Allergies Allergy/AdvReac Type Severity Reaction Status Date / Time No Known Allergies Allergy Verified 02/10/25 09:12 Home Medications ?Medication ?Instructions ?Recorded ?Confirmed ?Type losartan 50 mg-hydrochlorothiazide 1 tablet PO DAILY #90 tabs 03/08/24 12/31/24 Rx 12.5 mg tablet allopurinol 300 mg tablet 300 mg PO DAILY #90 tabs 08/27/24 02/10/25 Rx amlodipine 5 mg tablet 5 mg PO DAILY #90 tabs 08/27/24 12/31/24 Rx atenolol 25 mg tablet 25 mg PO DAILY #90 tabs 08/27/24 12/31/24 Rx atorvastatin 40 mg tablet 40 mg PO DAILY #90 tabs 08/27/24 12/31/24 Rx oxybutynin chloride 10 mg 10 mg PO DAILY #90 tabs 01/07/25 02/10/25 Rx tablet,extended release 24 hr Laboratory Tests 02/22/25 06:22 PT 14.7 Seconds (11.1-14.7) INR 1.2 Urine Color Yellow (Yellow) Urine Appearance Turbid H (Clear) Urine pH 7.5 (5.0-9.0) Ur Specific [place] 1.016 (1.001-1.035) Urine Protein 1+ H mg/dL (Negative) Urine Glucose (UA) Negative mg/dL (Negative) Urine Ketones Trace H mg/dL (Negative) Ur Blood (Man) Trace (Negative) Urine Nitrate Negative (Negative) Urine Bilirubin Negative (Negative) Urine Urobilinogen 4.0 H mg/dL (<2.0) Leukocyte Esterase Rfl 3+ H GLENNA/UL (Negative) Urine RBC 6-10 H /hpf (0-2) Urine WBC >100 H /hpf (0-3) Ur Squamous Epith Cells Occasional /hpf (Few) Urine Bacteria 1+ H /hpf Urine Casts 0-2 Patient hx anesthesia problems: none Family hx anesthesia problems: none Results Review: All pre-operative results and documents have been reviewed as part of the pre- operative evaluation. [facility] Past Medical History Medical History Elevated ferritin Fatty liver Hyperlipidemia Essential (primary) hypertension Surgical History Surgical History History of umbilical hernia repair (~1976) History of ankle surgery (~2018) Left fracture ORIF Family History Family History Father Diabetes mellitus Hypertension Sibling Heart disease Hypertension Social History Social History Smoking status: Never smoker Alcohol intake: current Drinks per week: 3 Alcohol use details: drinks daily Substance use: never Substance use type: does not use Do You Feel Safe in your Home?: Yes Lack of Transportation: No Lack of Food: Never True Current Housing: Decline to Answer Concerned About Future Housing: No Difficulty Paying Gas/Electric Bills: No Difficulty Paying for Meds: No Currently Unemployed: No Education: High School Diploma/GED Difficulty w/ Childcare or Family Care: No Living arrangements: alone Occupation/Education: retired Gender identity (if verbalized by the patient): Male Spiritual care concerns: No Agree to blood products: Yes Anes - Eval Final PreProcedure Day of Procedure 02/22/25 07:36 Patient weight: normal Heart: regular rate and rhythm Lungs: clear to auscultation Airway: Mallampati scale class III Neurological: alert and oriented Last oral intake: >/= 8 hours ASA classification: III Emergent: no Anesthetic plan: proceed Anesthesia type and monitoring: general LMA and standard monitoring Results Review: All pre-operative results and documents have been reviewed as part of the pre- operative evaluation. Informed Consent: The patient's anesthetic plan and its attendant risks and benefits were disc ussed with the patient/family/POA. Questions were solicited and answers provided to the satisfaction of the patient/family/POA.
--- NOTE | 2025-02-22 07:46 | P.HP_ITS ---
H&P: HPI History of Present Illness Date/Time: 02/22/25 07:46 Chief Complaint: left hydrocele and microhematuria Narrative: 69 yr old male with large left hydrocele and microhematuria Review of Systems Review of Systems: All systems reviewed & are unremarkable except as noted in HPI and below PMFSH Past Medical History Medical History Elevated ferritin Fatty liver Hyperlipidemia Essential (primary) hypertension Surgical History Surgical History History of umbilical hernia repair (~1976) History of ankle surgery (~2018) Left fracture ORIF Family History Family History Father Diabetes mellitus Hypertension Sibling Heart disease Hypertension Social History Social History Smoking status: Never smoker Alcohol intake: current Drinks per week: 3 Alcohol use details: drinks daily Substance use: never Substance use type: does not use Do You Feel Safe in your Home?: Yes Lack of Transportation: No Lack of Food: Never True Current Housing: Decline to Answer Concerned About Future Housing: No Difficulty Paying Gas/Electric Bills: No Difficulty Paying for Meds: No Currently Unemployed: No Education: High School Diploma/GED Difficulty w/ Childcare or Family Care: No Living arrangements: alone Occupation/Education: retired Gender identity (if verbalized by the patient): Male Spiritual care concerns: No Agree to blood products: Yes Meds Home Medications and Allergies Home Medications ?Medication ?Instructions ?Recorded ?Confirmed ?Type losartan 50 mg-hydrochlorothiazide 1 tablet PO DAILY #90 tabs 03/08/24 12/31/24 Rx 12.5 mg tablet allopurinol 300 mg tablet 300 mg PO DAILY #90 tabs 08/27/24 02/10/25 Rx amlodipine 5 mg tablet 5 mg PO DAILY #90 tabs 08/27/24 12/31/24 Rx atenolol 25 mg tablet 25 mg PO DAILY #90 tabs 08/27/24 12/31/24 Rx atorvastatin 40 mg tablet 40 mg PO DAILY #90 tabs 08/27/24 12/31/24 Rx oxybutynin chloride 10 mg 10 mg PO DAILY #90 tabs 01/07/25 02/10/25 Rx tablet,extended release 24 hr Allergies Allergy/AdvReac Type Severity Reaction Status Date / Time No Known Allergies Allergy Verified 02/10/25 09:12 Exam Const: General: cooperative and comfortable Resp: Effort & Inspection: normal respiratory effort Cardio: Rate: regular rate Rhythm: regular rhythm : Scrotum: scrotal swelling (large left hydrocele) H&P: Results Labs Labs: Urine 02/22/25 Range/Units 06:22 Urine Color Yellow (Yellow) Urine Appearance Turbid H (Clear) Urine pH 7.5 (5.0-9.0) Ur Specific [place] 1.016 (1.001-1.035) Urine Protein 1+ H (Negative) mg/dL Urine Glucose (UA) Negative (Negative) mg/dL Assessment and Plan Assessment and plan (1) Left hydrocele: Code(s): N43.3 - Hydrocele, unspecified Status: Acute Assessment and Plan: Proceed with left hydrocelectomy (2) Microhematuria: Code(s): R31.29 - Other microscopic hematuria Status: Acute Assessment and Plan: Proceed with flexible cystoscopy
--- NOTE | 2025-02-22 07:49 | WPDHPUPDATE1 ---
History and Physical Update Update Date/Time: 02/22/25 07:49 History and Physical has been reviewed, including an updated exam of the patient. There are NO changes in the patient's condition. Risks, benefits, and alternatives have been discussed and questions answered. Patient agrees to proceed with procedure.
[2025-02-22] MEDS: ceFAZolin 2 GM/D5W 50 ML 2 GM/50 ML BAG IVPB (07:55)
[2025-02-22] MEDS: LIDOCAINE 1% LOCAL INJ 10 ML VIAL INFILTRATE (08:19)
--- NOTE | 2025-02-22 08:59 | S_PTH ---
PATIENT: James Estrada Jr. LOC: [facility] U#:[id number] AGE/SX: 69/M ROOM: RE02/22/[address]: Dalton Miller, : 1955 BED: DIS: 02/22/2025 SPEC #: [id number] RECD: 02/22/25 10:48 STATUS: ABEBE REHarlan #: [id number] THALIA: 02/22/25 08:[address]: Paul,Dalton Morris DEPT: [facility] Surgical RECD BY: Lizeth Olmos ENTERED: 02/22/25 10:48 SP TYPE: Surgical OTHR DR: Galina Evans MD Tissues: A - Hydrocele Sac Procedures: Gross and Microscopic Level 2 Hematoxylin and Eosin Stain
[2025-02-22] MEDS: NEOMYCIN/POLYMYXIN/BACITR/HC OINT 15 GM TUBE 1 APPLIC TOPICAL (09:05)
--- NOTE | 2025-02-22 09:12 | W.PM.PROC2 ---
Procedure Note - Detailed Date of Procedure 02/22/25 Pre-op Diagnosis Left hydrocele, micro hematuria Post-op Diagnosis Same Procedure Performed Left hydrocelectomy with orchiopexy and flexible cystoscopy Surgeon Dalton Miller MD Anesthesia General Description of Procedure Patient was taken to the operative suite correctly identified. Once anesthesia was obtained he was prepped and draped usual sterile fashion. A transverse incision was made in the left hemiscrotum. This was carried down through the appropriate layers. The hydrocele was brought out into the operative field. It was incised and opened and drained of 850 cc of straw-colored fluid. The excess tissue was removed. I did over-sew the edges with 3-0 chromic. Quarter-inch [place] drain was then placed in the left hemiscrotum through a separate stab incision. Orchiopexy was performed a three-point fixture using Ethibond. The appendix testes had been removed. [place] was closed using 3-0 chromic as was the skin in a running fashion. Lidocaine was used to anesthetize the skin. Flexible cystoscopy with a 16 Georgian scope was then performed. There were no urethral strictures. Prostate without any significant obstruction. The bladder itself was inspected there were no tumors noted at this time. Scope was removed. 2% viscous lidocaine was inserted into the urethra. Neosporin ointment was placed on the incision. Scrotal support was placed and he was taken recovery stable condition. He will remove the [place] drain on or Friday. Follow-up in 2-3 weeks time. This completes dictation. Please send a copy of op note to my office Estimated Blood Loss 5 Drains Yes Packing No Pathology Yes Complications No immediate complications Condition Stable Disposition PACU
== END 2025-02-22 11:25 | disposition home or self-care (01) ==
PROVIDERS: Anesthesiology; PCP Family Medicine; Visit Provider Urology
PROC: (CPT 55040; principal; 2025-02-22 07:30)
DX: N43.3 Hydrocele, unspecified (principal); R31.29 Other microscopic hematuria
CPT/HCPCS: 55040; 52000; 54640; 36415; 81001; 85610; 87086; 88302; A9270; J0690; J2003; J2405; J2704; J3010; J7030; J7120

== ENCOUNTER 2025-02-27 07:58 | Emergency (ER) | payer OTHER, SELFPAY ==
--- OUTSIDE RECORDS SUMMARY | 2025-02-27 08:01 | XMS_ITS | CONTINUITY OF CARE DOCUMENT ---
Author Name jazlyneugenio jazlyneugenio Address Unknown Organization [facility] Address [address] [place] [address] Phone [phone] Care Team Providers Care Sfdc Solution Architect Name Role Phone Pradip GALLARDO, Jesus Unavailable PITA DAWKINS MD Unavailable PITA DAWKINS MD Unavailable PROBLEMS Condition Status Date Provider Notes CORONARY ARTERY DISEASE, FAMILY HX active D anah Carlos HYPERLIPIDEMIA active Marla Carlos CELLULITIS active Marla Carlos GOUT, HX OF active Marla Carlos ENCOUNTERS Date Type Provider Location Encounter Diagnosis - In-person encounter Office Visit Jesus Moseley MD [place] [facility] VITAL SIGNS Date Observation Value Provider [...] Payer name Policy type / Coverage type [place] red republican ID [facility] [id number] 1 TREATMENT PLAN Date Name Performer Follow-up [...]
--- OUTSIDE RECORDS SUMMARY | 2025-02-27 08:01 | XMS_ITS | Clinical Summary ---
Author Organization [employer] Address [address] [place] [address] Care Team Providers Care Motocross Racer Name Role Phone Hector Rhodes MD Primary Care Provider [phone] Source Comments [facility] [employer],non-owned Affiliates and Associated Physician Practices is amultiple site organization consisting of ambulatory clinics and hospital sitesin [place], [place], [place]. This disclosure is being madepursuant to the Care Everywhere program and may not contain all information available regarding this patient. Last updated 18.[employer] Allergies No known active allergies Medications * [...] tablet every day by oral route. Active Patterson-3 Fatty Acids (FISH OIL) 1000 MG capsule [...] Comments Blood Pressure 115/64 08/10/2019 9:25 AM TRAY ROOM WORKER Pulse 76 08/10/2019 9:25 AM TRAY ROOM WORKER Temperature 37 C (98.6 F) 08/10/2019 9:25 AM TRAY ROOM WORKER Respiratory Rate 18 08/10/2019 9:25 AM TRAY ROOM WORKER Oxygen Saturation 98% 08/10/2019 9:25 AM TRAY ROOM WORKER Inhaled Oxygen Concentration - - Weight 96.3 kg (212 lb 4.8 oz) 08/10/2019 9:25 A M TRAY ROOM WORKER Height 193 cm (6' 4) 08/10/2019 9:25 AM TRAY ROOM WORKER Body Mass Index 25.84 08/10/2019 9:25 AM TRAY ROOM WORKER Plan of Treatment Health Maintenance Due Date [...] Management General On track( 019 9:32 AM TRAY ROOM WORKER) Ramu Celestin, RN Note: Expected end date: [...] 7 - 26 mg/dL 03/05/2019 1:48 PM [facility] Creatinine 1.0 0.6 - 1.2 mg/dL 03/05/2019 1:48 PM [facility] Sodium 135(L) 136 - 145 mmol/L 03/05/2019 1:48 PM [facility] Potassium 3.3(L) 3.5 - 4.5 mmol/L 03/05/2019 1:48 PM [facility] Chloride 96(L) 98 - 107 mmol/L 03/05/2019 1:48 PM [facility] CO2 25 22 - 29 mmol/L 03/05/2019 1:48 PM [facility] Glucose 88 70 - 115 mg/dL 03/05/2019 1:48 PM [facility] Calcium 10.1 8.4 - 10.2 mg/dL 03/05/2019 1:48 PM [facility] Protein Total 8.1 6.0 - 8.3 g/dL 03/05/2019 1:48 PM [facility] Albumin 3.6 3.4 - 5.0 g/dL 03/05/2019 1:48 PM [facility] Bilirubin Total 3.1(H) 0.2 - 1.2 mg/dL 03/05/2019 1:48 PM [facility] Alkaline Phosphatase 84 40 - 150 Units/L 03/05/2019 1:48 PM [facility] ALT 30 0 - 55 Units/L 03/05/2019 1:48 PM [facility] AST 48(H) 5 - 34 Units/L 03/05/2019 1:48 PM [facility] Anion Gap 17 8 - 18 03/05/2019 1:48 PM [facility] BUN/Creatinine Ratio 14 7 - 23 03/05/2019 1:48 PM [facility] Osmolality Calculated 280 270 - 300 mOsm/kg 03/05/2019 1:48 PM [facility] Albumin/Globulin Ratio 0.8(L) 1.1 - 2.3 03/05/2019 1:48 PM [facility] eGFR >60 >60 mL/min/1.7 3 m2 03/05/2019 1:48 PM [facility] Blood BLOOD SPECIMEN / Unknown Lab Venipuncture / Unknown 03/05/2019 12:09 PM CDT 03/05/2019 12:33 PM CDT Robel Ervin MD LAB - CHEMISTRY ORDERAB LES Final Result [facility] [address] [place] [address] from Last 3 Months or Most Recently Relevant to Health Maintenance Insurance MEDICARE MEDICARE Care Teams Motocross Racer Relationship Specialty Start Date End Date Hector Rhodes MD PCP - General Internal Medicine 12/17/18
[2025-02-27 08:03] VITALS: BP 131/79; PULSE 76; RESP 18; TEMP 36.4; O2SAT 98
--- OUTSIDE RECORDS SUMMARY | 2025-02-27 08:07 | XMS_ITS | CONTINUITY OF CARE DOCUMENT ---
Author Name jazlyneugenio jazlyneugenio Address Unknown Organization [facility] Address [address] [place] [address] Phone [phone] Care Team Providers Care Rivet Hammer Machine Operator Name Role Phone Pradip GALLARDO, Jesus Unavailable PITA DAWKINS MD Unavailable PITA DAWKINS MD Unavailable PROBLEMS Condition Status Date Provider Notes CORONARY ARTERY DISEASE, FAMILY HX active D anah Carlos HYPERLIPIDEMIA active Marla Carlos CELLULITIS active Marla Carlos GOUT, HX OF active Marla Carlos ENCOUNTERS Date Type Provider Location Encounter Diagnosis - In-person encounter Office Visit Jesus Moseley MD [place] [facility] VITAL SIGNS Date Observation Value Provider [...] Payer name Policy type / Coverage type [place] red green party ID [facility] [id number] 1 TREATMENT PLAN Date Name Performer Follow-up [...]
--- NOTE | 2025-02-27 08:13 | ED_ITS ---
HPI - General Adult General Chief complaint: Urogenital-Male Stated complaint: my testicle busted on me Time Seen by Provider: 02/27/25 08:03 History of Present Illness HPI narrative: 69-year-old male presents to the emergency department for evaluation for an open surgical incision. Patient had drainage of a varicocele on 02/22 by Urology, Dr Miller. Patient had a drain removed on 02/24 in the office. Patient states last night that the entire incision opened up. Patient has a 7 cm open incision through the muscular layers of the scrotum with the tunica vaginalis visible. Patient denies any bleeding or pain. No evidence of infection. I suspect that the patient's scrotum became entrapped on the leg and this put too much tension on his surgical incision sutures. Related Data Allergies Allergy/AdvReac Type Severity Reaction Status Date / Time No Known Allergies Allergy Verified 02/22/25 08:01 Review of Systems Review of Systems: All systems reviewed & are unremarkable except as noted in HPI and below PMFSH Past Medical History Medical History Elevated ferritin Fatty liver Hyperlipidemia Essential (primary) hypertension Surgical History Surgical History History of umbilical hernia repair (~1976) History of ankle surgery (~2018) Left fracture ORIF Family History Family History Father Diabetes mellitus Hypertension Sibling Heart disease Hypertension Social History Social History Smoking status: Never smoker Alcohol intake: current Drinks per week: 3 Alcohol use details: drinks daily Substance use: never Substance use type: does not use Do You Feel Safe in your Home?: Yes Lack of Transportation: No Lack of Food: Never True Current Housing: Decline to Answer Concerned About Future Housing: No Difficulty Paying Gas/Electric Bills: No Difficulty Paying for Meds: No Currently Unemployed: No Education: High School Diploma/GED Difficulty w/ Childcare or Family Care: No Living arrangements: alone Occupation/Education: retired Gender identity (if verbalized by the patient): Male Spiritual care concerns: No Agree to blood products: Yes Exam Narrative: APPEARANCE: Well appearing, no pain, no distress, well-nourished. HEAD: normocephalic, atraumatic. EYES: PERRLA/EOMI, conjunctivae clear. NOSE: Normal no drainage EARS:TMS clear with good light reflex. THROAT: Pharynx clear, no exudate. NECK: Supple. No adenopathy, no masses. RESPIRATORY: Airway patent, respirations nonlabored. Clear to auscultation bilaterally, no rales, rhonchi, wheezing. CARDIOVASCULAR: Regular rate and rhythm without murmurs rubs or gallops. ABDOMINAL: Soft, nontender, nondistended, normal bowel sounds MUSCULOSKELETAL: Moves all extremities. Strength/ROM intact, No edema, No calf tenderness. NEURO: Alert. Cranial nerves II through XII intact. Good gait. Good coordination SKIN: Warm, dry. Normal Color Genital exam: 7 cm laceration through the muscular layers the scrotum with the tunica vaginalis visible, no purulent discharge. No erythema concerning for infection. Some sutures were still present but were removed prior to laceration repair Course Vital Signs Vital signs: Vital Signs Temperature 97.5 F L 02/27/25 08:03 Pulse Rate 76 02/27/25 08:03 Respiratory Rate 18 02/27/25 08:03 Blood Pressure 131/79 02/27/25 08:03 Pulse Oximetry 98 02/27/25 08:03 Temperature 97.5 F L 02/27/25 08:03 Pulse Rate 76 02/27/25 08:03 Respiratory Rate 18 02/27/25 08:03 Blood Pressure 131/79 02/27/25 08:03 Pulse Oximetry 98 02/27/25 08:03 Procedures Laceration Laceration 1: Date: 02/27/25 Time: 08:51 Site: scrotum Side (If applicable): left Size (cm): 7 Description: linear Depth: simple, single layer and involves muscle layer Local Anesthetic: lidocaine 1% Amount of anesthesia used (mL): 7 Pre-repair: wound explored, irrigated, irrigated extensively and minor debridement ====== Skin Level ====== Skin layer closed with: vicryl Size (cm): 4-0 Number of sutures: 10 Technique: simple, interrupted ====== Subcutaneous Layer ====== ====== Muscle Layer ====== ====== Tendon Layer ====== Medical Decision Making MDM Narrative Medical decision making narrative: 69-year-old male present to the emergency department for evaluation for surgical wound dehiscence. I discussed the case with Dr. Martinez, that was on-call for the patient's urologist. He was comfortable with the laceration being repaired in the emergency department. Wounds was cleansed with saline and wound cleanser. Laceration was repaired as described in the procedure note. Patient has been taking Bactrim and patient was provided additional 5 days of Bactrim. Patient was advised to give urology call in the morning to schedule follow-up for a wound check. Patient was updated on reasons to return to the emergency department. All questions concerns were addressed patient was well-appearing at time of discharge. Differential Diagnosis Differential Diagnosis: Wound infection, wound dehiscence, testicular torsion, varicocele, hydrocele Vital Signs Vital Signs: Vital Signs Temperature 97.5 F L 02/27/25 08:03 Pulse Rate 76 02/27/25 08:03 Respiratory Rate 18 02/27/25 08:03 Blood Pressure 131/79 02/27/25 08:03 Pulse Oximetry 98 02/27/25 08:03 Temperature 97.5 F L 02/27/25 08:03 Pulse Rate 76 02/27/25 08:03 Respiratory Rate 18 02/27/25 08:03 Blood Pressure 131/79 02/27/25 08:03 Pulse Oximetry 98 02/27/25 08:03 Discharge Plan Discharge Clinical Impression: Dehiscence of operative wound Patient Disposition: Home Condition: Stable Instructions: Antibiotic Form Additional Instructions: Continue to take your antibiotics as directed. Take the antibiotic for an additional 5 days. Have close follow-up with Urology on Friday. Wound care as directed. If you have any worsening symptoms then please call or return to the emergency department. Patient Language: Belarusian Prescriptions: New sulfamethoxazole-trimethoprim [Bactrim DS] 800-160 mg tablet 1 tablet PO Q12H 5 Days Qty: 10 0RF No Action sulfamethoxazole-trimethoprim [Bactrim DS] 800-160 mg tablet 1 tablet PO Q12H Qty: 6 0RF tramadol 50 mg tablet 50 mg PO Q6H PRN (Reason: pain) Qty: 20 0RF losartan-hydrochlorothiazide 50-12.5 mg tablet 1 tablet PO DAILY Qty: 90 0RF allopurinol 300 mg tablet 300 mg PO DAILY Qty: 90 1RF amlodipine 5 mg tablet 5 mg PO DAILY Qty: 90 1RF atenolol 25 mg tablet 25 mg PO DAILY Qty: 90 1RF atorvastatin 40 mg tablet 40 mg PO DAILY Qty: 90 1RF oxybutynin chloride 10 mg tablet extended release 24hr 10 mg PO DAILY Qty: 90 1RF Follow-up/Referrals: Dalton Miller MD [Physician] - Naina Evans MD [Primary Care Provider] -
[2025-02-27] MEDS: SULFAMETHOXAZOLE/TRIMETHOPRIM 800/160 MG DS TABLET 1 TAB PO (08:56)
== END 2025-02-27 09:00 | disposition home or self-care (01) ==
PROVIDERS: Emergency Provider Emergency Medicine; PCP Family Medicine
DX: T81.31XA Disruption of external operation (surgical) wound, not elsewhere classified, initial encounter (principal); E78.5 Hyperlipidemia, unspecified; I10 Essential (primary) hypertension; Z79.899 Other long term (current) drug therapy; Y83.8 Other surgical procedures as the cause of abnormal reaction of the patient, or of later complication, without mention of misadventure at the time of the procedure
CPT/HCPCS: 12002; 12020; 99283; A9270

== ENCOUNTER 2025-03-10 20:48 | Emergency (ER) | payer OTHER, SELFPAY ==
[2025-03-10 20:50] VITALS: BP 95/54; PULSE 72; RESP 16; TEMP 37.4; O2SAT 97
--- NOTE | 2025-03-10 21:05 | ED_ITS ---
HPI - General Adult General Chief complaint: Urogenital-Male Stated complaint: scrotal wound Time Seen by Provider: 03/10/25 20:52 History of Present Illness HPI narrative: 69-year-old male returns to the emergency department for evaluation for a wound dehiscence. Patient had removal of a large hydrocele on 02/22 and then presented to the emergency department on 02/27 for concern for wound dehiscence. Urology was consulted they recommended starting the patient on antibiotics, perform suture repair for wound closure and discharging to home. Patient did have follow-up with U for altered mental status, was evaluated by urology and no surgical intervention was done. Patient was started on antibiotics and [facility], [facility] he was found to have dehiscence of the wound again. Related Data Home Medications ?Medication ?Instructions ?Recorded ?Confirmed ?Last Taken ?Type amoxicillin 875 mg-potassium 1 tablet PO BIDWM 03/10/25 03/10/25 Unknown History clavulanate 125 mg tablet atorvastatin 40 mg tablet 40 mg PO HS 03/10/25 03/10/25 Unknown History omega 8-qcj-ghe-fish oil 1,000 mg 1 cap PO DAILY 03/10/25 03/10/25 Unknown History (120 mg-180 mg) capsule (Fish Oil) sulfamethoxazole 800 1 tablet PO Q12H 03/10/25 03/10/25 Unknown History mg-trimethoprim 160 mg tablet (Bactrim DS) Allergies Allergy/AdvReac Type Severity Reaction Status Date / Time No Known Allergies Allergy Verified 02/22/25 08:01 Review of Systems Review of Systems: All systems reviewed & are unremarkable except as noted in HPI and below PMFSH Past Medical History Medical History (Updated 03/10/25 @ 22:15 by Art Cai MD) Dehiscence of operative wound Elevated ferritin Fatty liver Hyperlipidemia Essential (primary) hypertension Surgical History Surgical History History of umbilical hernia repair (~1976) History of ankle surgery (~2018) Left fracture ORIF Family History Family History Father Diabetes mellitus Hypertension Sibling Heart disease Hypertension Social History Social History Smoking status: Never smoker Alcohol intake: former Drinks per week: 3 Alcohol use details: drinks daily Substance use: never Substance use type: does not use Last use: 03/06/25 Do You Feel Safe in your Home?: Yes Lack of Transportation: No Lack of Food: Never True Current Housing: I Have Housing Concerned About Future Housing: No Difficulty Paying Gas/Electric Bills: No Difficulty Paying for Meds: No Currently Unemployed: No Education: High School Diploma/GED Difficulty w/ Childcare or Family Care: No Living arrangements: alone Occupation/Education: retired Gender identity (if verbalized by the patient): Male Spiritual care concerns: No Agree to blood products: Yes Exam Narrative: APPEARANCE: Well appearing, no pain, no distress, well-nourished. HEAD: normocephalic, atraumatic. EYES: PERRLA/EOMI, conjunctivae clear. NOSE: Normal no drainage EARS:TMS clear with good light reflex. THROAT: Pharynx clear, no exudate. NECK: Supple. No adenopathy, no masses. RESPIRATORY: Airway patent, respirations nonlabored. Clear to auscultation bilaterally, no rales, rhonchi, wheezing. CARDIOVASCULAR: Regular rate and rhythm without murmurs rubs or gallops. ABDOMINAL: Soft, nontender, nondistended, normal bowel sounds MUSCULOSKELETAL: Moves all extremities. Strength/ROM intact, No edema, No calf tenderness. NEURO: Alert. Cranial nerves II through XII intact. Good gait. Good coordination SKIN: 6 cm lesion with wound dehiscence, wound is healing compared to last sanjeev luation. Extensive granulation tissue is seen. No evidence of cellulitis or infection. Course Vital Signs Vital signs: Vital Signs Temperature 99.3 F 03/10/25 20:50 Pulse Rate 72 03/10/25 20:50 Respiratory Rate 16 03/10/25 20:50 Blood Pressure 95/54 L 03/10/25 20:50 Pulse Oximetry 97 03/10/25 20:50 Oxygen Delivery Room Air 03/10/25 20:50 Temperature 98.9 F 03/10/25 23:11 Pulse Rate 87 03/10/25 23:45 Respiratory Rate 16 03/10/25 23:45 Blood Pressure 99/67 L 03/10/25 23:45 Pulse Oximetry 94 03/10/25 23:45 Oxygen Delivery Room Air 03/10/25 20:50 Medical Decision Making MDM Narrative Medical decision making narrative: 69-year-old male presents emergency department for evaluation for wound dehiscence. Is healing by secondary intention at this point. I discussed case with Dr. Gutierrez. He was comfortable with plan to allow to heal by secondary intention. Patient is currently on Bactrim and Augmentin. Patient family updated on the results of the exam and discussion with Urology they are comfortable the plan for discharge back to the rehab facility. Wound care was requested of the rehab facility. Differential Diagnosis Differential Diagnosis: Abscess, cellulitis, wound dehiscence Vital Signs Vital Signs: Vital Signs Temperature 99.3 F 03/10/25 20:50 Pulse Rate 72 03/10/25 20:50 Respiratory Rate 16 03/10/25 20:50 Blood Pressure 95/54 L 03/10/25 20:50 Pulse Oximetry 97 03/10/25 20:50 Oxygen Delivery Room Air 03/10/25 20:50 Temperature 98.9 F 03/10/25 23:11 Pulse Rate 87 03/10/25 23:45 Respiratory Rate 16 03/10/25 23:45 Blood Pressure 99/67 L 03/10/25 23:45 Pulse Oximetry 94 03/10/25 23:45 Oxygen Delivery Room Air 03/10/25 20:50 Discharge Plan Discharge Clinical Impression: Encounter for wound re-check Patient Disposition: [facility] Condition: Stable Instructions: Antibiotic Form Additional Instructions: [facility] will need to have frequent wound checks to ensure proper healing. Continue antibiotics as directed. Have close outpatient follow-up with Urology. Patient Language: Portuguese Prescriptions: No Action allopurinol 300 mg tablet 300 mg PO DAILY Qty: 90 1RF amlodipine 5 mg tablet 5 mg PO DAILY Qty: 90 1RF atenolol 25 mg tablet 25 mg PO DAILY Qty: 90 1RF amoxicillin-pot clavulanate 875-125 mg tablet 1 tablet PO BIDWM Rx Instructions: x21 days omega 4-acu-aqb-fish oil [Fish Oil] 1,000 (120-180) mg capsule 1 cap PO DAILY atorvastatin 40 mg tablet 40 mg PO HS sulfamethoxazole-trimethoprim [Bactrim DS] 800-160 mg tablet 1 tablet PO Q12H Rx Instructions: x21 days Follow-up/Referrals: Carmelo,MD Hector [Non-Staff] -
[2025-03-10 23:11] VITALS: PULSE 82; RESP 19; TEMP 37.2; O2SAT 97
[2025-03-10 23:45] VITALS: BP 99/67; PULSE 87; RESP 16; O2SAT 94
== END 2025-03-11 00:10 ==
PROVIDERS: Emergency Provider Emergency Medicine; PCP Family Medicine
DX: T81.31XA Disruption of external operation (surgical) wound, not elsewhere classified, initial encounter (principal); I10 Essential (primary) hypertension; E78.5 Hyperlipidemia, unspecified; Z79.899 Other long term (current) drug therapy
CPT/HCPCS: 99282

== ENCOUNTER 2025-04-07 11:00 | Outpatient (CLI) | payer OTHER, SELFPAY ==
--- OUTSIDE RECORDS SUMMARY | 2025-04-07 11:05 | XMS_ITS | Clinical Summary ---
Author Organization [facility] Address [address] [place] [address] Care Team Providers Care Outdoor Studies Professor Name Role Phone Hector Rhodes MD Primary Care Provider [phone] Source Comments [facility],non-owned Affiliates and Associated Physician Practices is amultiple site organization consisting of ambulatory clinics and hospital sitesin [place], [place], [place] and [place]. This disclosure is being madepursuant to the Care Everywhere program and may not contain all information available regarding this patient. Last updated 18.[facility] Allergies Active Allergy Reactions Criticality Noted Date Comments Lisinopril Angioedema High 12/21/2009 Medications * Be aware that medications may not be up to date on this document. Alwaysverify current medications with the patient. allopurinol (ZYLOPRIM) 300 MG tablet Take 1 (one) tablet by mouth once daily Active amLODIPine (NORVASC) 5 MG tablet Take 1 (one) tablet by mouth once daily Active atenolol (TENORMIN) 25 MG tablet Take 1 (one) tablet by mouth once daily Active atorvastatin (LIPITOR) 40 MG tablet Take 1 (one) tablet by mouth at bedtime Active [place]-3 Fatty Acids (FISH OIL) 1000 MG capsule Fish Oil DAILY Active amoxicillin-cla vulanate (Augmentin) 875-125 MG tablet Take 1 (one) tablet by mouth 2 times daily with morning and evening meal for 21 days 42 tablet 03/08/2025 03/29/20 25 sulfamethoxazol e-trimethoprim (Bactrim DS; Septra DS) 800-160 MG tablet Take 1 (one) tablet by mouth every 12 hours for 21 days 42 tablet 03/08/2025 03/29/20 25 Active Problems Problem Noted Date Diagnosed Date Acute metabolic encephalopathy 03/05/2025 Assessment & Plan (03/08/2025 1:18 PM CDT): - s/p recent L-sided hydrocelectomy c/b wound dehiscence - presented with sepsis, started broad-spectrum antibiotics with improvement - scrotal ultrasound showed complex left hydrocele with thin septations and internal echoes likely representing infected hydrocele - blood cultures NGTD - urology consulted, appreciate assistance. No plan for surgical intervention, recommend IV antibiotics while in the hospital and then transition to 3-4 weeks of oral antibiotics on discharge - Continue IV vancomycin and cefepime. Will switch to Augmentin and Bactrim on discharge - Smith to remain in place, f/u with OSH urologist in 1-2 weeks for wound check and smith management / void trial (has f/u 03/10). - PT/OT recommend acute rehab but was denied so patient discharged w/ [facility] and wheeled walker. Assessment & Plan (03/07/2025 9:04 AM CDT): - s/p recent L-sided hydrocelectomy c/b wound dehiscence - presented with sepsis, started broad-spectrum antibiotics with improvement - scrotal ultrasound showed complex left hydrocele with thin septations and internal echoes likely representing infected hydrocele - blood cultures NGTD - urology consulted, appreciate assistance. No plan for surgical intervention, recommend IV antibiotics while in the hospital and then transition to 3-4 weeks of oral antibiotics on discharge - Continue IV vancomycin and cefepime. Will switch to Augmentin and Bactrim on discharge - Smith to remain in place, f/u with OSH urologist in 1-2 weeks for wound check and smith management / void trial - PT/OT recommend acute rehab Assessment & Plan (03/06/2025 1:08 PM CDT): - s/p recent L-sided hydrocelectomy c/b wound dehiscence - presented with sepsis, started broad-spectrum antibiotics with improvement - scrotal ultrasound showed complex left hydrocele with thin septations and internal echoes likely representing infected hydrocele - blood cultures NGTD - urology consulted, appreciate assistance. No plan for surgical intervention, recommend IV antibiotics while in the hospital and then transition to 3-4 weeks of oral antibiotics on discharge - Continue IV vancomycin and cefepime. Will switch to Augmentin and Bactrim on discharge - Smith to remain in place, f/u with OSH urologist in 1-2 weeks for wound check and smith management / void trial - PT/OT recommend acute rehab Assessment & Plan (03/05/2025 3:45 PM CDT): - s/p recent L-sided hydrocelectomy c/b wound dehiscence - presented with sepsis, started broad-spectrum antibiotics with improvement - scrotal ultrasound showed complex left hydrocele with thin septations and internal echoes likely representing infected hydrocele - blood cultures NGTD - urology consulted, appreciate assistance. No plan for surgical intervention, recommend IV antibiotics while in the hospital and then transition to 3-4 weeks of oral antibiotics on discharge - Continue IV vancomycin and cefepime, flagyl. Will switch to Augmentin and Bactrim on discharge - Smith to remain in place, f/u with OSH urologist in 1-2 weeks for wound check and smith management / void trial - PT/OT recommend acute rehab [facility] (acute kidney injury) 03/05/2025 Assessment & Plan (03/08/2025 1:18 PM CDT): - resolved Assessment & Plan (03/07/2025 9:04 AM CDT): - resolved Assessment & Plan (03/06/2025 8:54 AM CDT): - resolved Assessment & Plan (03/05/2025 8:30 AM CDT): - resolved Alcohol use disorder 03/05/2025 Assessment & Plan (03/08/2025 1:18 PM CDT): - continue to encourage cessation - states he has switched to non-alcoholic beer Assessment & Plan (03/07/2025 9:04 AM CDT): - continue to encourage cessation - states he has switched to non-alcoholic beer Assessment & Plan (03/06/2025 8:54 AM CDT): - continue to encourage cessation - states he has switched to non-alcoholic beer Assessment & Plan (03/05/2025 3:45 PM CDT): - continue to encourage cessation - states he has switched to non-alcoholic beer Infected hydrocele 03/02/2025 Assessment & Plan (03/08/2025 1:18 PM CDT): - s/p recent L-sided hydrocelectomy c/b wound dehiscence - presented with sepsis, started broad-spectrum antibiotics with improvement - scrotal ultrasound showed complex left hydrocele with thin septations and internal echoes likely representing infected hydrocele - blood cultures NGTD - urology consulted, appreciate assistance. No plan for surgical intervention, recommend IV antibiotics while in the hospital and then transition to 3-4 weeks of oral antibiotics on discharge - Continue IV vancomycin and cefepime. Will switch to Augmentin and Bactrim on discharge - Smith to remain in place, f/u with [facility] urologist in 1-2 weeks for wound check and smith management / void trial (has f/u 03/10). - PT/OT recommend acute rehab but was denied so patient discharged w/ [facility] and wheeled walker. Assessment & Plan (03/07/2025 9:04 AM CDT): - s/p recent L-sided hydrocelectomy c/b wound dehiscence - presented with sepsis, started broad-spectrum antibiotics with improvement - scrotal ultrasound showed complex left hydrocele with thin septations and internal echoes likely representing infected hydrocele - blood cultures NGTD - urology consulted, appreciate assistance. No plan for surgical intervention, recommend IV antibiotics while in the hospital and then transition to 3-4 weeks of oral antibiotics on discharge - Continue IV vancomycin and cefepime. Will switch to Augmentin and Bactrim on discharge - Smith to remain in place, f/u with OSH urologist in 1-2 weeks for wound check and smith management / void trial - PT/OT recommend acute rehab Assessment & Plan (03/06/2025 1:08 PM CDT): - s/p recent L-sided hydrocelectomy c/b wound dehiscence - presented with sepsis, started broad-spectrum antibiotics with improvement - scrotal ultrasound showed complex left hydrocele with thin septations and internal echoes likely representing infected hydrocele - blood cultures NGTD - urology consulted, appreciate assistance. No plan for surgical intervention, recommend IV antibiotics while in the hospital and then transition to 3-4 weeks of oral antibiotics on discharge - Continue IV vancomycin and cefepime. Will switch to Augmentin and Bactrim on discharge - Smith to remain in place, f/u with OSH urologist in 1-2 weeks for wound check and smith management / void trial - PT/OT recommend acute rehab Assessment & Plan (03/05/2025 3:45 PM CDT): - s/p recent L-sided hydrocelectomy c/b wound dehiscence - presented with sepsis, started broad-spectrum antibiotics with improvement - scrotal ultrasound showed complex left hydrocele with thin septations and internal echoes likely representing infected hydrocele - blood cultures NGTD - urology consulted, appreciate assistance. No plan for surgical intervention, recommend IV antibiotics while in the hospital and then transition to 3-4 weeks of oral antibiotics on discharge - Continue IV vancomycin and cefepime, flagyl. Will switch to Augmentin and Bactrim on discharge - Smith to remain in place, f/u with OSH urologist in 1-2 weeks for wound check and smith management / void trial - PT/OT recommend acute rehab Sepsis 03/02/2025 Assessment & Plan (03/08/2025 1:18 PM CDT): - s/p recent L-sided hydrocelectomy c/b wound dehiscence - presented with sepsis, started broad-spectrum antibiotics with improvement - scrotal ultrasound showed complex left hydrocele with thin septations and internal echoes likely representing infected hydrocele - blood cultures NGTD - urology consulted, appreciate assistance. No plan for surgical intervention, recommend IV antibiotics while in the hospital and then transition to 3-4 weeks of oral antibiotics on discharge - Continue IV vancomycin and cefepime. Will switch to Augmentin and Bactrim on discharge - Smith to remain in place, f/u with OSH urologist in 1-2 weeks for wound check and smith management / void trial (has f/u 03/10). - PT/OT recommend acute rehab but was denied so patient discharged w/ [facility] and wheeled walker. Assessment & Plan (03/07/2025 9:04 AM CDT): - s/p recent L-sided hydrocelectomy c/b wound dehiscence - presented with sepsis, started broad-spectrum antibiotics with improvement - scrotal ultrasound showed complex left hydrocele with thin septations and internal echoes likely representing infected hydrocele - blood cultures NGTD - urology consulted, appreciate assistance. No plan for surgical intervention, recommend IV antibiotics while in the hospital and then transition to 3-4 weeks of oral antibiotics on discharge - Continue IV vancomycin and cefepime. Will switch to Augmentin and Bactrim on discharge - Smith to remain in place, f/u with OSH urologist in 1-2 weeks for wound check and smith management / void trial - PT/OT recommend acute rehab Assessment & Plan (03/06/2025 1:08 PM CDT): - s/p recent L-sided hydrocelectomy c/b wound dehiscence - presented with sepsis, started broad-spectrum antibiotics with improvement - scrotal ultrasound showed complex left hydrocele with thin septations and internal echoes likely representing infected hydrocele - blood cultures NGTD - urology consulted, appreciate assistance. No plan for surgical intervention, recommend IV antibiotics while in the hospital and then transition to 3-4 weeks of oral antibiotics on discharge - Continue IV vancomycin and cefepime. Will switch to Augmentin and Bactrim on discharge - Smith to remain in place, f/u with OSH urologist in 1-2 weeks for wound check and smith management / void trial - PT/OT recommend acute rehab Assessment & Plan (03/05/2025 3:45 PM CDT): - s/p recent L-sided hydrocelectomy c/b wound dehiscence - presented with sepsis, started broad-spectrum antibiotics with improvement - scrotal ultrasound showed complex left hydrocele with thin septations and internal echoes likely representing infected hydrocele - blood cultures NGTD - urology consulted, appreciate assistance. No plan for surgical intervention, recommend IV antibiotics while in the hospital and then transition to 3-4 weeks of oral antibiotics on discharge - Continue IV vancomycin and cefepime, flagyl. Will switch to Augmentin and Bactrim on discharge - Smith to remain in place, f/u with OSH urologist in 1-2 weeks for wound check and smith management / void trial - PT/OT recommend acute rehab Hyponatremia 03/01/2025 Altered mental status, unspe cified altered mental status type 03/01/2025 Anemia, unspecified type 03/01/2025 Elevated serum creatinine 03/01/2025 Alcoholic cirrhosis of liver with ascites 2018 Overview (03/05/2019): 03/05/19 Fibroscan CAP 313, E 18.8 kPa Assessment & Plan (03/08/2025 1:18 PM CDT): - diagnosed with cirrhosis in 2019 after Fibroscan. Alcohol was considered likely cause. Does not appear to have had follow-up since - abdominal US showed diffuse steatosis but no significant fibrosis. Also negative for any nodular lesions suggestive of HCC - outpatient hepatology follow-up Assessment & Plan (03/07/2025 9:04 AM CDT): - diagnosed with cirrhosis in 2018 after Fibroscan. Alcohol was considered likely cause. Does not appear to have had follow-up since - abdominal US showed diffuse steatosis but no significant fibrosis. Also negative for any nodular lesions suggestive of HCC - outpatient hepatology follow-up Assessment & Plan (03/06/2025 8:54 AM CDT): - diagnosed with cirrhosis in 2019 after Fibroscan. Alcohol was considered likely cause. Does not appear to have had follow-up since - abdominal US showed diffuse steatosis but no significant fibrosis. Also negative for any nodular lesions suggestive of HCC - outpatient hepatology follow-up Assessment & Plan (03/05/2025 3:45 PM CDT): - diagnosed with cirrhosis in 2019 after Fibroscan. Alcohol was considered likely cause. Does not appear to have had follow-up since - abdominal US showed diffuse steatosis but no significant fibrosis. Also negative for any nodular lesions suggestive of HCC - outpatient hepatology follow-up Encounters Date Type Department Care Team Description 03/09/2025 Telephone Transitional Care at [address] [address] Juana Castro, demonstrator [employer] 03/09/2025 Telephone Transitional Care at [address] [phone] Juana Castro, demonstrator [employer] 03/09/2025 Telephone Transitional Care at [address] [phone] Juana Castro, demonstrator [employer] 03/01/2025 5:45 PM CDT - 03/08/2025 2:07 PM CDT Hospital Encounter [facility] [address] [place] [address] Ganesh Charles, DO Des[place], MD Danya Bruce Hafiz Muhammad, MD Felgenhauer, Joshua, MD Smutz, Kellen J, DO Emergency Medicine Discharge Disposition: [place] Health Care [facility] [place]/01/2025 Travel from Last 3 Months Social History Tobacco Use Types Packs/Day Years Used Date Smoking Tobacco: Never Smokeless Tobacco: Never Alcohol Use Standard Drinks/Week Comments Yes 7 (1 standard drink = 0.6 oz pur e alcohol) vodka/water AUDIT-C Answer Date Recorded Q1: How often do you have a drink containing alc ohol? Monthly or less 03/02/2025 Q2: How many drinks containi ng alcohol do you have on a typical day when you are drinking? 1 or 2 03/02/2025 Q3: How often do you have si x or more drinks on one occasion? Never 03/02/2025 Overall Financial Resource Strain (CARDIA) Answe r Date Recorded How hard is it for you to pa y for the very basics like food, housing, medical care, and heating? Not hard at all 03/02/2025 [facility] Occupat ional Health - Occupational Stress Questionnaire Answer Date Recorded Do you feel stress - tense, restless, nervous, or anxious, or unable to sleep at night because your mind is troubled all the time - these days? Not at all 03/02/2025 Hunger Vital Sign Answer Date Recorded Within the past 12 months, y ou worried that your food would run out before you got the money to buy more. Never true 03/02/20 25 Within the past 12 months, t he food you bought just didn't last and you didn't have money to get more. Never true 03/02/2025 PRAPARE - Transportation Answer Date Re corded In the past 12 months, has l ack of transportation kept you from medical appointments or from getting medications? No 02/13 In the past 12 months, has l ack of transportation kept you from meetings, work, or from getting things needed for daily living? No 03/02/2025 Housing Stability Vital Sign Answer Jeffrey e Recorded In the last 12 months, was t here a time when you were not able to pay the mortgage or rent on time? No 03/02/2025 In the past 12 months, how m any times have you moved where you were living? 0 03/02/2025 At any time in the past 12 m [facility], were you homeless or living in a fpc (including now)? No 03/02/2025 Sex and Gender Information Value Date Recorded Sex Assigned at Not on file Legal Sex Male 9:15 AM CDT Gender Identity Not on file Sexual Orientation Not on file Last Filed Vital Signs Vital Sign Reading Time Taken Comments Blood Pressure 150/92 03/08/2025 12:41 PM CDT Pulse 74 03/08/2025 12:41 PM CDT Temperature 36.8 C (98.2 F) 03/08/2025 12:41 PM CDT Respiratory Rate 20 03/08/2025 12:4 1 PM CDT Oxygen Saturation 100% 03/08/2025 12: 41 PM CDT Inhaled Oxygen Concentration - - Weight 86.5 kg (190 lb 11.2 oz) 03/02/2025 8:00 PM CDT Height 193 cm (6' 3.98) 03/02/2025 8:00 PM CDT Body Mass Index 23.22 03/02/2025 8:00 PM CDT Plan of Treatment Health Maintenance Due Date Last Done Comments COLOGUARD (AGES 45-75) - COLON CA SCREENING 1955 COLON MONITORING 1955 COLONOSCOPY [...] - Risk 60-74 years 1-dose series) 2013 COVID-19 VACCINE (1 - season) 2024 DEPRESSION SCREENING 09/15/2024 INFLUENZA VACCINE (#1) 2025 SCREENING FOR DIABETES 03/08/2028 5, 03/07/2025, 03/05/2025, Additional history exists HIB VACCINE Aged Out No longer eligi ble based on patient's age to complete this topic HPV VACCINE Aged Out No longer eligi ble based on patient's age to complete this topic MENINGOCOCCAL (Group B) VACCINE SHARED DECISION-MAKING Aged Out No longer eligible based on patient's age to complete this topic MENINGOCOCCAL GROUPS A/C/Y/W VACCINE Aged Out No longer eligible based on patient's age to complete this topic Goals Goal Patient Goal Type Associated Problems Recent Progress Patient-Stated? Author Medication Management General On track( 019 9:32 AM SHAPER MACHINE HAND) Ramu Celestin RN Note: Expected end date: Interventions: Take all medications as prescribed Let your doctor know right away about any changes in your medications Make sure to request a refill of your medication at least one week prior to your last dose Procedures Procedure Name Priority Date/Time Associated Diagnosis Comments CBC W/O DIFFERENTIAL AM Draw 03/08/2025 8:35 AM CDT BASIC METABOLIC PANEL (CALCIUM TOTAL) AM Draw 03/08/2025 8:35 AM CDT MAGNESIUM BLOOD AM Draw 03/08/2025 8:35 AM CDT PHOSPHORUS BLOOD AM Draw 03/08/2025 8:35 AM CDT CARDIAC EKG ORDER 03/07/2025 11: 01 AM CDT CBC W/O DIFFERENTIAL AM Draw 03/07/2025 6:50 AM CDT BASIC METABOLIC PANEL (CALCIUM TOTAL) AM Draw 03/07/2025 6:50 AM CDT MAGNESIUM BLOOD AM Draw 03/07/2025 6:50 AM CDT PHOSPHORUS BLOOD AM Draw 03/07/2025 6:50 AM CDT VANCOMYCIN LEVEL TROUGH Timed 03/05/2025 8:45 PM CDT CBC W/O DIFFERENTIAL AM Draw 03/05/2025 10:01 AM CDT BASIC METABOLIC PANEL (CALCIUM TOTAL) AM Draw 03/05/2025 10:01 AM CDT MAGNESIUM BLOOD AM Draw 03/05/2025 10:01 AM CDT PHOSPHORUS BLOOD AM Draw 03/05/2025 10:0 1 AM CDT CBC W/O DIFFERENTIAL AM Draw 03/04/2025 6:58 AM CDT BASIC METABOLIC PANEL (CALCIUM TOTAL) AM Draw 03/04/2025 6:58 AM CDT MAGNESIUM BLOOD AM Draw 03/04/2025 6:58 AM CDT PHOSPHORUS BLOOD AM Draw 03/04/2025 6:58 AM CDT GLUCOSE - POINT OF CARE Routine 03/03/2025 4:20 PM CDT US ABDOMEN LTD W COMP DOPPLER Routine 03/03/2025 12:01 PM CDT Altered mental status, unspecified altered mental status type GLUCOSE - POINT OF CARE Routine 03/03/2025 11:12 AM CDT GLUCOSE - POINT OF CARE Routine 03/03/2025 8:13 AM CDT BASIC METABOLIC PANEL (CALCIUM TOTAL) AM Draw 03/03/2025 5:11 AM CDT MAGNESIUM BLOOD AM Draw 03/03/2025 5:11 AM CDT PHOSPHORUS BLOOD AM Draw 03/03/2025 5:11 AM CDT VANCOMYCIN LEVEL TROUGH Timed 03/03/2025 5:09 AM CDT CBC W/O DIFFERENTIAL AM Draw 03/03/2025 5:09 AM CDT US SCROTUM W DOPPLER STAT 03/02/2025 10:41 AM CDT Altered mental status, unspecified altered mental status type MAGNESIUM BLOOD STAT 03/02/2025 4:27 AM CDT CBC W/O DIFFERENTIAL STAT 03/02/2025 4:27 AM CDT COMPREHENSIVE METABOLIC PANEL STAT 03/02/2025 4:27 AM CDT URINE DRUG SCREEN IMMUNOASSAY STAT 03/02/2025 12:37 AM CDT BLOOD GASES VICTOR M + COOX PANEL STAT 03/02/2025 12:37 AM CDT LACTIC ACID BLOOD STAT 03/02/2025 12: 37 AM CDT EKG 12-LEAD Routine 03/02/2025 12:28 AM CDT Altered mental status, unspecified altered mental status type XR CHEST 1VW PORTABLE Routine 03/02/2025 12:10 AM CDT Altered mental status, unspecified altered mental status type URINALYSIS W/MICROSCOPIC NO CULTURE STAT 03/01/2025 10:[address] ABDOMEN PELVIS W CONTRAST STAT 03/01/2025 9:12 PM CDT Altered mental status, unspecified altered mental status type TROPONIN-I HIGH SENSITIVE REFLEX 1HOUR Timed 03/01/2025 7:22 PM CDT XR CHEST 1VW STAT 03/01/2025 6:59 PM CDT Altered mental status, unspecified altered mental status type CT HEAD WO CONTRAST STAT 03/01/2025 6 :47 PM CDT Altered mental status, unspecified altered mental status type CULTURE BLOOD Timed 03/01/2025 6:12 PM CDT PT-INR SLH STAT 03/01/2025 6:00 PM CDT AMMONIA STAT 03/01/2025 6:00 PM CDT COMPREHENSIVE METABOLIC PANEL STAT 03/01/2025 6:00 PM CDT CBC W AUTO DIFFERENTIAL STAT 03/01/2025 6:00 PM CDT TROPONIN-I HIGH SENSITIVE BASELINE + 1HR STAT 03/01/2025 6:00 PM CDT LACTIC ACID BLOOD REFLEX TO REPEAT STAT 03/01/2025 6:00 PM CDT CULTURE BLOOD Timed 03/01/2025 6:00 PM CDT from Last 3 Months Results * (ABNORMAL) CBC W/O DIFFERENTIAL (03/08/2025 8:35 AM CDT) Only the most recent of6 resultswithin the time period is included. WBC 9.4 4.0 - 10.7 x10E9/L 03/08/2025 9:17 AM [facility] RBC Count 4.83 4.30 - 5.80 x10E12/L 03/08/2025 9:17 AM [facility] Hemoglobin 12.0(L) 13.3 - 17.5 g/dL 03/08/2025 9:17 AM [facility] Hematocrit 36.0(L) 38.7 - 51.1 % 03/08/2025 9:17 AM [facility] MCV 74.5(L) 80.0 - 98.0 fL 03/08/2025 9:17 AM [facility] MCH 24.8(L) 26.7 - 33.6 pg 03/08/2025 9:17 AM [facility] MCHC 33.3 31.7 - 36.3 g/dL 03/08/2025 9:17 AM [facility] RDW-CV 15.2(H) 11.3 - 14.8 % 03/08/2025 9:17 AM [facility] Platelet Count 282 150 - 420 x10E9/L 03/08/2025 9:17 AM [facility] MPV 10.4 7.8 - 11.4 fL 03/08/2025 9:17 AM [facility] Blood BLOOD SPECIMEN / Unknown Lab Venipuncture / Unknown 03/08/2025 8:35 AM CDT 03/08/2025 8:57 AM CDT us Forrest Welch MD LAB - HEMATOLOGY ORDERABLE S Final Result [facility] [address] [place] [address], [facility] [phone] * (ABNORMAL) BASIC METABOLIC PANEL (CALCIUM TOTAL) (03/08/2025 8:35 AM CDT) Only the most recent of5 resultswithin the time period is included. BUN 12 7 - 26 mg/dL 03/08/2025 9:32 AM [facility] Creatinine 0.72 0.71 - 1.16 mg/dL 03/08/2025 9:32 AM [facility] Sodium 137 136 - 145 mmol/L 03/08/2025 9:32 AM [facility] Potassium 3.2(L) 3.5 - 4.5 mmol/L 03/08/2025 9:32 AM [facility] Chloride 111(H) 98 - 107 mmol/L 03/08/2025 9:32 AM [facility] CO2 23 22 - 29 mmol/L 03/08/2025 9:32 AM [facility] Glucose 150(H) 70 - 99 mg/dL 03/08/2025 9:32 AM [facility] Calcium 8.5 8.4 - 10.2 mg/dL 03/08/2025 9:32 AM [facility] Anion Gap 3(L) 6 - 16 03/08/2025 9:32 AM [facility] BUN/Creatinine Ratio 17 7 - 23 03/08/2025 9:32 AM [facility] Osmolality Calculated 287 275 - 295 mOsm/kg 03/08/2025 9:32 AM [facility] eGFR by CKD-EPI >90 >=90 mL/min/1.7 3 m2 03/08/2025 9:32 AM [facility] Blood BLOOD SPECIMEN / Unknown Lab Venipuncture / Unknown 03/08/2025 8:35 AM CDT 03/08/2025 8:57 AM CDT Narrative [facility] - 03/08/2025 9:32 AM CDT Estimated Glomerular Filtration Rate (eGFR) calculated using the CKD-EPI Creatinine Equation (2020), per the [employer] and [place] [employer] recommendations. Forrest Welch MD LAB - CHEMISTRY ORDERABLES Final Result Performing Organization Address City/[facility]/ZIP Co de Phone Number [address] [address], [facility] [phone] * (ABNORMAL) PHOSPHORUS BLOOD (03/08/2025 8:35 AM CDT) Only the most recent of5 resultswithin the time period is included. Phosphorus 2.4(L) 2.8 - 5.1 mg/dL 03/08/2025 9:32 AM CDT [facility] Blood BLOOD SPECIMEN / Unknown Lab Venipuncture / Unknown 03/08/2025 8:35 AM CDT 03/08/2025 8:57 AM CDT Forrest Welch MD LAB - CHEMISTRY ORDERABLES Final Result Performing Organization Address City/[facility]/ZIP Co de Phone Number [address] [address], [facility] [phone] * MAGNESIUM BLOOD (03/08/2025 8:35 AM CDT) Only the most recent of6 resultswithin the time period is included. Magnesium 2.1 1.6 - 2.6 mg/dL 03/08/2025 9:32 AM CDT [facility] Blood BLOOD SPECIMEN / Unknown Lab Venipuncture / Unknown 03/08/2025 8:35 AM CDT 03/08/2025 8:57 AM CDT Forrest Welch MD LAB - CHEMISTRY ORDERABLES Final Result Performing Organization Address City/[facility]/ZIP Co de Phone Number [address] [address], [place] [phone] * CARDIAC EKG ORDER (03/07/2025 11:01 AM CDT) Narrative 03/07/2025 11:01 AM CDT Ordered by an unspecified provider. us Scanned Document CARDIAC SERVICES ORDERABLES Fin al Result * VANCOMYCIN LEVEL TROUGH (03/05/2025 8:45 PM CDT) Only the most recent of2 resultswithin the time period is included. Vancomycin Trough 16.3 10.0 - 20.0 ug/mL 03/05/2025 10:10 PM CDT [facility] Blood BLOOD SPECIMEN / Unknown Venipuncture / Unknown 03/05/2025 8:45 PM CDT 03/05/2025 8:50 PM CDT Narrative [facility] - 03/05/2025 10:10 PM CDT See institution protocol. us Forrest Welch MD LAB - CHEMISTRY ORDERABLES Final Result [address] [address], [place] [phone] * GLUCOSE - POINT OF CARE (03/03/2025 4:20 PM CDT) Only the most recent of3 resultswithin the time period is included. Glucose WB/POC 96 70 - 99 mg/dL 03/03/2025 4:25 PM CDT [facility] Specimen Type Arterial/C apillary 03/03/2025 4:25 PM CDT [facility] Blood BLOOD SPECIMEN / Unknown 03/03/2025 4:20 PM CDT 03/03/2025 4:25 PM CDT Forrest Welch MD LAB - POINT OF CARE ORDERA BLES Final Result [address] [address], [place] [phone] * US Abdomen Ltd W Comp Doppler (03/03/2025 12:01 PM CDT) Anatomical Region Laterality Modality Abdomen Ultrasound 03/03/2025 1:18 PM CDT Impressions 03/03/2025 2:55 PM CDT IMPRESSION: 1.Diffuse hepatic steatosis without discrete hepatic lesion or intrahepatic biliary dilatation. 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 Patent hepatic vasculature. 3.Cholelithiasis without evidence of acute cholecystitis. The report was drafted by Iglesia Peter MD (microarray operations vice president) 03/03/2025 1:18 PM. I, Jeffrey Brock have personally reviewed and interpreted this examination/study. > Interpreting Provider: Jeffrey Brock on 03/03/2025 2:55 PM Narrative 03/03/2025 2:55 PM CDT PROCEDURE: US ABDOMEN LTD W COMP DOPPLER, DATE/TIME OF EXAM: 03/03/2025 12:01 PM, LOCATION [facility] INDICATION: R41.82: Altered mental status, unspecified altered mental status type COMPARISON: CT abdomen and pelvis with contrast from 03/01/2025. FINDINGS: Abdomen: The liver is increased in echogenicity, consistent with diffuse hepatic steatosis. There is smooth liver surface contour. No discrete hepatic mass or intrahepatic biliary dilatation is seen. Multiple gallstones are seen within the gallbladder without pericholecystic fluid. The gallbladder wall is normal in thickness. Sonographic Chapin's sign is negative. The common bile duct is nondilated, measuring 6 mm. The right kidney measures 11.8 x 4.7 x 6 cm. Limited views of the right kidney reveal no evidence of nephrolithiasis or hydronephrosis. The spleen measures 16.4 cm in length. The visible pancreas is normal in echogenicity. No ascites is present. Liver Doppler: Color and spectral Doppler evaluation demonstrates patency of the hepatic veins with appropriate flow direction and multiphasic waveforms. The main, left, and right portal veins appear patent with normal hepatopetal flow. The main portal vein demonstrates a normal phasic waveform and velocity measures 29.4 cm/s. 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 The proper hepatic artery is patent and demonstrates a normal arterial waveform with brisk systolic upstroke and antegrade flow. Resistive index in the proper hepatic artery measures 0.71. Small right pleural effusion. Procedure Note Jeffrey Brock MD - 03/03/2025 PROCEDURE: US ABDOMEN LTD W COMP DOPPLER, DATE/TIME OF EXAM: 03/03/2025 12:01 PM, LOCATION [facility] INDICATION: R41.82: Altered mental status, unspecified altered mental status type COMPARISON: CT abdomen and pelvis with contrast from 03/01/2025. FINDINGS: Abdomen: The liver is increased in echogenicity, consistent with diffuse hepatic steatosis. There is smooth liver surface contour. No discrete hepaticmass or intrahepatic biliary dilatation is seen. Multiple gallstones are seen within the gallbladder withoutpericholecystic fluid. The gallbladder wall is normal in thickness. Sonographic Chapin's sign is negative. The common bile duct is nondilated, measuring 6 mm. The right kidney measures 11.8 x 4.7 x 6 cm. Limited views of the right kidney reveal no evidence of nephrolithiasis or hydronephrosis. Thespleen measures 16.4 cm in length. The visible pancreas is normal inechogenicity. No ascites is present. Liver Doppler: Color and spectral Doppler evaluation demonstrates patency of thehepatic veins with appropriate flow direction and multiphasic waveforms. The main, left, and right portal veins appear patent with normal hepatopetal flow. The main portal vein demonstrates a normal phasic waveform and velocity measures 29.4 cm/s. 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 The proper hepatic artery is patent and demonstrates a normal arterial waveform with brisk systolic upstroke and antegrade flow. Resistiveindex in the proper hepatic artery measures 0.71. Small right pleural effusion. IMPRESSION: 1.Diffuse hepatic steatosis without discrete hepatic lesion orintrahepatic biliary dilatation. 2.Redemonstration of an abnormal fistulous communication between theright hepatic vein and a branch of the right portal vein. Patent hepatic vasculature. 3.Cholelithiasis without evidence of acute cholecystitis. The report was drafted by Iglesia Peter MD (microarray operations vice president) 03/03/2025 1:18 PM. Jeffrey Rosales have personally reviewed and interpreted this examination/study. > Interpreting Provider: Jeffrey Brock on 03/03/2025 2:55 PM us Roger Hagan MD US ORDERABLES Final R esult * US Scrotum W Doppler (03/02/2025 10:41 AM CDT) Anatomical Region Laterality Modality Pelvis Ultrasound 03/02/2025 12:1 2 PM CDT Impressions 03/02/2025 6:08 PM CDT IMPRESSION: 1.No evidence of testicular torsion. 2.Complex left hydrocele with thin septations and internal echoes likely representing infected hydrocele. 3.Diffuse soft tissue swelling within the subcutaneous tissues of the scrotum, likely representing cellulitis. The report was drafted by Iglesia Peter MD (microarray operations vice president) 03/02/2025 12:12 PM. Austin Rosales MD have personally reviewed and interpreted this examination/study. > Interpreting Provider: Austin Enriquez MD on 03/02/2025 6:08 PM Narrative 03/02/2025 6:08 PM CDT PROCEDURE: US SCROTUM W DOPPLER, DATE/TIME OF EXAM: 03/02/2025 10:41 AM, LOCATION [facility] INDICATION: R41.82: Altered mental status, unspecified altered mental status type ADDITIONAL CLINICAL INFORMATION: Ordering Provider Reason For Exam: rule out fluid collection, assess integrity of contents and evaluate for causes of sepsis COMPARISON: None. FINDINGS: Right testicle: 5.8 x 1.9 x 3.1 cm Right epididymis: 1.9 x 0.9 x 0.9 cm Left testicle: 4.3 x 2.7 x 2.9 cm Left epididymis: 1 x 0.9 x 1 cm The testicles are normal in size and echotexture. No focal testicular parenchymal lesion is seen. There is testicular arterial flow bilaterally. The epididymides are normal in size. Complex left hydrocele with thin septations and internal echoes. No right hydrocele. No varicocele is identified. Diffuse soft tissue swelling within the subcutaneous tissues of the scrotum. Procedure Note Virgen Enriquez MD - 03/02/2025 PROCEDURE: US SCROTUM W DOPPLER, DATE/TIME OF EXAM: 03/02/2025 10:41AM, LOCATION [facility] INDICATION: R41.82: Altered mental status, unspecified altered mental status type ADDITIONAL CLINICAL INFORMATION: Ordering Provider Reason For Exam: rule out fluid collection, assess integrity of contents and evaluate for causes of sepsis COMPARISON: None. FINDINGS: Right testicle: 5.8 x 1.9 x 3.1 cm Right epididymis: 1.9 x 0.9 x 0.9 cm Left testicle: 4.3 x 2.7 x 2.9 cm Left epididymis: 1 x 0.9 x 1 cm The testicles are normal in size and echotexture. No focal testicular parenchymal lesion is seen. There is testicular arterial flowbilaterally. The epididymides are normal in size. Complex left hydrocele with thin septations and internal echoes. No right hydrocele. No varicocele is identified. Diffuse soft tissue swelling within the subcutaneous tissues of the scrotum. IMPRESSION: 1.No evidence of testicular torsion. 2.Complex left hydrocele with thin septations and internal echoes likely representing infected hydrocele. 3.Diffuse soft tissue swelling within the subcutaneous tissues of the scrotum, likely representing cellulitis. The report was drafted by Iglesia Peter MD (microarray operations vice president) 03/02/2025 12:12 PM. IAustin MD have personally reviewed and interpreted this examination/study. > Interpreting Provider: Austin Enriquez MD on 03/02/2025 6:08 PM us Roger Hagan MD ORDERABLES Final R esult * (ABNORMAL) COMPREHENSIVE METABOLIC PANEL (03/02/2025 4:27 AM CDT) Only the most recent of2 resultswithin the time period is included. BUN 12 7 - 26 mg/dL 03/02/2025 6:10 AM CDT [facility] Creatinine 1.01 0.71 - 1.16 mg/dL 03/02/2025 6:10 AM CDT [facility] Sodium 135(L) 136 - 145 mmol/L 03/02/2025 6:10 AM [facility] Potassium 3.8 3.5 - 4.5 mmol/L 03/02/2025 6:10 AM [facility] Chloride 110(H) 98 - 107 mmol/L 03/02/2025 6:10 AM [facility] CO2 17(L) 22 - 29 mmol/L 03/02/2025 6:10 AM [facility] Glucose 100(H) 70 - 99 mg/dL 03/02/2025 6:10 AM [facility] Calcium 8.2(L) 8.4 - 10.2 mg/dL 03/02/2025 6:10 AM [facility] Protein Total 6.7 6.0 - 8.3 g/dL 03/02/2025 6:10 AM [facility] Albumin 2.7(L) 3.4 - 5.0 g/dL 03/02/2025 6:10 AM [facility] Bilirubin Total 1.5(H) 0.2 - 1.2 mg/dL 03/02/2025 6:10 AM [facility] Alkaline Phosphatase 84 40 - 150 U/L 03/02/2025 6:10 AM [facility] ALT 25 5 - 55 U/L 03/02/2025 6:10 AM [facility] AST 44(H) 5 - 34 U/L 03/02/2025 6:10 AM [facility] Anion Gap 8 6 - 16 03/02/2025 6:10 AM [facility] BUN/Creatinine Ratio 12 7 - 23 03/02/2025 6:10 AM [facility] Osmolality Calculated 280 275 - 295 mOsm/kg 03/02/2025 6:10 AM [facility] Albumin/Globulin Ratio 0.7(L) 1.1 - 2.3 03/02/2025 6:10 AM [facility] eGFR by CKD-EPI 80(L) >=90 mL/min/1.7 3 m2 03/02/2025 6:10 AM [facility] Blood BLOOD SPECIMEN / Unknown Venipuncture / Unknown 03/02/2025 4:27 AM CDT 03/02/2025 5:41 AM CDT [facility] - 03/02/2025 6:10 AM CDT Estimated Glomerular Filtration Rate (eGFR) calculated using the CKD-EPI Creatinine Equation (2020), per the National Kidney Foundation and [place] [employer]ph[employer] recommendations. Roger Hagan MD LAB - CHEMISTRY ORDERAB LES Final Result [facility] [address] [place] [address], [facility] [phone] * (ABNORMAL) BLOOD GASES VICTOR M + COOX PANEL (03/02/2025 12:37 AM CDT) pH Venous 7.39 7.32 - 7.42 pH 03/02/2025 12:43 AM [facility] pO2 Venous 65(H) 35 - 40 mmHg 03/02/2025 12:43 AM [facility] pCO2 Venous 29(L) 40 - 50 mmHg 03/02/2025 12:43 AM [facility] HCO3 Venous 17.6(L) 20 - 30 mmol/L 03/02/2025 12:43 AM [facility] Base Excess Venous -6.2(L) -2.0 - 2.0 mmol/L 03/02/2025 12:43 AM [facility] Oxyhemoglobin Venous 91.5 % 02/13 12:43 AM [facility] Deoxyhemoglobin (HHB) Venous % 5.3 % 03/02/2025 12:43 AM [facility] Methemoglobin <0.8 0.0 - 2.0 % 03/02/2025 12:43 AM [facility] Carboxyhemoglobin 2.5(H) 0.0 - 2.0 % 2024 12:43 AM [facility] O2 Content Venous 15.2 Interpret within clinical context ml/dL 03/02/2025 12:43 AM [facility] Hemoglobin by COOX 11.8(L) 12.0 - 17.6 g/dL 03/02/2025 12:43 AM [facility] O2 Saturation Venous 95 >=70 % 02/13 12:43 AM [facility] FI O2 Mixed Venous 21.0 % 2024 12:43 AM [facility] Blood BLOOD SPECIMEN / Unknown Venipuncture / Unknown 03/02/2025 12:37 AM CDT 03/02/2025 12:40 AM CDT Narrative [facility] - 03/02/2025 12:43 AM T Carboxyhemoglobin Normal Concentration: Non-smokers: 0-2%; Smokers: 0-9%; Toxic: >20% us Roger Hagan MD LAB - BLOOD GASES ORDER KATYA Final Result Performing Organization Address City/State/[facility] Co de Phone Number [facility] [address] [place] [address], [facility] [phone] * URINE DRUG SCREEN IMMUNOASSAY (03/02/2025 12:37 AM [facility]) [facility] Amphetamines Screen Urine Negative Negative: < 1000 ng/mL 03/02/2025 12:59 AM [facility] Barbiturates Screen Urine Negative Negative: < 200 ng/mL 03/02/2025 12:59 AM [facility] Benzodiazepine Screen Urine Negative Negative: < 200 ng/mL 03/02/2025 12:59 AM [facility] Opiates Urine Negative Negative: < 300 ng/mL 03/02/2025 12:59 AM [facility] Cocaine Metabolites Urine Negative Negative: < 300 ng/mL 03/02/2025 12:59 AM [facility] Phencyclidine Screen Urine Negative Negative: < 25 ng/ml 03/02/2025 12:59 AM [facility] Cannabinoids Screen Urine Negative Negative: <50 ng/mL 03/02/2025 12:59 AM [facility] Methadone Screen Urine Negative Negative: < 300 ng/mL 03/02/2025 12:59 AM [facility] Fentanyl Screen Urine Negative Negative: <1.5 ng/mL 03/02/2025 12:59 AM [facility] Urine URINE / Unknown Collection / Unknown 03/02/2025 12:37 AM CDT 03/02/2025 12:40 AM CDT Narrative [facility] - 03/02/2025 12:59 AM CDT The Urine Toxicology Screening Panel does not screen for Propoxyphene, Meprobamate, Carisoprodol, Trazodone, iwvr-pwn-ypleyzt medications and/or volatiles (Acetone, Isopropanol, Methanol or Ethylene Glycol). Ethanol, Salicylate, Acetaminophen, Tricyclic Antidepressants and several therapeutic drugs may be individually assayed in serum or plasma specimen. Toxicology testing by the [facility] is an aid to medical diagnosis and treatment of patients. No documented chain of custody was maintained. Results are intended to be used for clinical purposes only. us Roger Hagan MD LAB - URINE CHEMISTRY O RDERABLES Final Result Performing Organization Address [facility]/ZIP Co de Phone Number [address] [address], [facility] [phone] * LACTIC ACID BLOOD (03/02/2025 12:37 AM CDT) [facility] Lactic Acid-Stat 1.1 <=2.0 mmol/L 03/02/2025 1:08 AM CDT [facility] Blood BLOOD SPECIMEN / Unknown Venipuncture / Unknown 03/02/2025 12:37 AM CDT 03/02/2025 12:42 AM CDT us Roger Hagan MD LAB - CHEMISTRY ORDERAB LES Final Result Performing Organization Address [facility]/ZIP Co de Phone Number [address] [address], [place] [phone] * EKG 12-LEAD (03/02/2025 12:28 AM CDT) Ventricular Rate 76 BPM [facility] MUSE Atrial Rate 76 BPM [facility] MUSE P-R Interval 164 ms [facility] M[facility] QRS Duration ms 92 ms [facility] MUSE Q-T Interval ms 402 ms [facility] MUSE QTC Calculation (Bezet) 452 ms [facility] Calculated P [place] 63 degrees [facility] Calculated R [place] -20 degrees [facility] Calculated T [place] -23 degrees [facility] Interpretation EKG NORMAL SINUS RHYTHM POSSIBLE LEFT ATRIAL ENLARGEMENT NONSPECIFIC ST AND T WAVE ABNORMALITY ABNORMAL ECG NO PREVIOUS ECGS AVAILABLE Confirmed by ELIZABETH LILLY DO ([id number]) on 03/03/2025 1:32:24 PM [facility]USE 03/02/2025 12:2 8 AM CDT 03/03/2025 1:32 PM CDT us Roger Hagan MD ECG ORDERABLES Edited Result - Final [facility] MUSE * XR CHEST 1VW PORTABLE (03/02/2025 12:10 AM CDT) Anatomical Region Laterality Modality Chest Digital Radiogra phy 03/02/2025 11:0 0 AM CDT Narrative 03/03/2025 3:01 PM CDT PROCEDURE: XR CHEST 1VW PORTABLE, DATE/TIME OF EXAM: 03/02/2025 12:10 AM, LOCATION [facility] INDICATION: R41.82: Altered mental status, unspecified altered mental status type ADDITIONAL CLINICAL INFORMATION: Ordering Provider Reason For Exam: rule out COMPARISON: Chest radiograph 03/01/2025 FINDINGS/IMPRESSION: Bilateral decreased lung volumes with bronchovascular crowding. Right lower lobe calcified granuloma. There is no focal consolidation, pleural effusion, or pneumothorax. Appearance of mild cardiomegaly may be due to portable AP projection technique and incomplete lung inflation. Mediastinal contours are normal. No acute bony abnormality. > Dictated by Edouard MUHAMMAD, FRCR (resident in diagnostic radiology). I, Do Patterson MD have personally reviewed and interpreted this examination/study. > Interpreting Provider: Do Patterson MD on 03/03/2025 3:01 PM Procedure Note Do Patterson MD - 03/03/2025 PROCEDURE: XR CHEST 1VW PORTABLE, DATE/TIME OF EXAM: 03/02/2025 12:10AM, LOCATION [facility] INDICATION: R41.82: Altered mental status, unspecified altered mental status type ADDITIONAL CLINICAL INFORMATION: Ordering Provider Reason For Exam: rule out COMPARISON: Chest radiograph 03/01/2025 FINDINGS/IMPRESSION: Bilateral decreased lung volumes with bronchovascular crowding. Rightlower lobe calcified granuloma. There is no focal consolidation, pleural effusion, or pneumothorax. Appearance of mild cardiomegaly may be due to portable AP projection technique and incomplete lung inflation.Mediastinal contours are normal. No acute bony abnormality. > Dictated by [facility], [facility] (resident in diagnostic radiology). I, Do Patterson MD have personally reviewed and interpreted this examination/study. > Interpreting Provider: Do Patterson MD on 03/03/2025 3:01 PM Roger Hagan MD DIAGNOSTIC IMAGING [facility] Final Result * (ABNORMAL) URINALYSIS W/MICROSCOPIC NO CULTURE (03/01/2025 10:21 PM CDT) Color UA Yellow Yellow, Straw 03/01/2025 10:55 PM [facility] Clarity UA Clear Clear 03/01/2025 10:55 PM [facility] Glucose UA Normal Normal 03/01/2025 10:55 PM [facility] Bilirubin UA Negative Negative 03/01/2025 10:55 PM [facility] Ketone UA Negative Negative 03/01/2025 10:55 PM [facility] Specific [place] UA >1.050(H) 1.005 - 1.030 03/01/2025 10:55 PM [facility] Blood UA Negative Negative 03/01/2025 10:55 PM [facility] pH UA 5.5 5.0 - 8.0 03/01/2025 10:55 PM [facility] Protein UA Negative Negative 03/01/2025 10:55 PM [facility] Urobilinogen UA 6.0(A) Normal mg/dL 025 10:55 PM [facility] Nitrite UA Negative Negative 03/01/2025 10:55 PM [facility] Leukocyte Esterase UA Negative Negative 03/01/2025 10:55 PM [facility] RBC UA None Seen 0 - 5 # /hpf 03/01/2025 10:55 PM CDT [facility] WBC UA 0-5 0 - 5 # /hpf 03/01/2025 10:55 PM CDT [facility] Bacteria UA None Seen None Seen 03/01/2025 10:55 PM CDT [facility] Squamous Epithelial Cells 0-2 0 - 5 /hpf 03/01/2025 10:55 PM CDT [facility] Mucus UA 1+ /LPF 03/01/2025 10:55 PM CDT [facility] Urine URINE SPECIMEN OBTAINED BY CLEAN CATCH PROCEDURE / Unknown Collection / Unknown 03/01/2025 10:21 PM CDT 03/01/2025 10:25 PM CDT Yehuda Gale MD LAB - URINALYSIS ORDERABLES Angie schaefer Result [address] [address], [facility] [phone] * CT Abdomen Pelvis W Contrast (03/01/2025 9:12 PM CDT) Anatomical Region Laterality Modality Abdomen, Pelvis Computed Tomogra phy 03/01/2025 10:0 4 PM CDT Impressions 03/02/2025 8:32 AM CDT Impression: 1.The scrotum is incompletely visualized to definitively rule out a testicular abscess as clinically queried. Within the visualized portions of the left hemiscrotum, there is suggestion of dilated vasculature, which may reflect underlying varicocele. Sonographic evaluation of the scrotum may be obtained for further characterization if clinically indicated. 2.Hepatosplenomegaly and hepatic steatosis. Additionally, there appears to be fistulous communication between the right hepatic vein and a branch of the right portal vein. 3.Cholelithiasis with a small volume of pericholecystic fluid which may be seen with acute cholecystitis. Recommend clinical correlation. Right upper quadrant ultrasound may be obtained if clinically indicated. 4.Small volume pericardial effusion. 5.Small 2.7 x 2.2 cm fluid density structure within the right gluteus yazmin muscle, may represent sequela of prior trauma, unclear clinical significance. > Dictated by Miguel Angel Chow MD (resident in diagnostic radiology). IAustin MD have personally reviewed and interpreted this examination/study. > Interpreting Provider: Austin Enriquez MD on 03/02/2025 8:32 AM Narrative 03/02/2025 8:32 AM CDT PROCEDURE: CT ABDOMEN PELVIS W CONTRAST, DATE/TIME OF EXAM: 03/01/2025 9:14 PM, LOCATION [facility] INDICATION: R41.82: Altered mental status, unspecified altered mental status type ADDITIONAL CLINICAL INFORMATION: Ordering Provider Reason For Exam: testicular abscess ? post op complication COMPARISON: None. TECHNIQUE: CT of the abdomen and pelvis was performed following the uneventful administration of 100 mL of Isovue 370 intravenous contrast according to standard protocol. Findings: Lower Chest: Several calcified granulomas in the right lower lobe, otherwise the lung bases are clear. Partially visualized small volume pericardial effusion. The coronary arteries and aortic valve is atherosclerotic. Liver: The liver is diffusely hypoattenuating, consistent with diffuse hepatic steatosis. Additionally, the liver is enlarged measuring up to 24.3 cm in craniocaudal length. There appears to be fistulous communication between the right hepatic vein and a branch of the right portal vein. 1.0 cm hypoattenuating lesion within hepatic segment 5 is incompletely characterized but likely represents a cyst versus hemangioma. Gallbladder and Bile Ducts: Layering sludge and stones are seen within the dependent aspect of the gallbladder. There is also mild pericholecystic fluid along the lateral aspect of the gallbladder. No intra or extrahepatic biliary dilatation. Spleen: The spleen is enlarged measuring up to 16.3 cm and AP diameter. Pancreas: Normal. Adrenals: Normal. Kidneys: Hypoattenuating cysts in the left kidney, measuring up to 1.9 cm in diameter. Otherwise the bilateral kidneys enhance symmetrically, without hydronephrosis or nephrolithiasis. Gastrointestinal: The stomach and visualized loops of large and small bowel are unremarkable. Normal appendix. Mesentery/Peritoneum/Retroperitoneum: No free intraperitoneal air. No free fluid in the abdomen or pelvis. Small bilateral fat-containing inguinal hernias. Bladder: Urinary bladder is partially distended but otherwise appears normal. Reproductive Organs: Within the left hemiscrotum, there is suggestion of dilated vessels, which may reflect underlying varicocele. The scrotum is not fully visualized to rule out a testicular abscess as clinically queried. Prostatomegaly measuring 5.1 cm in transverse diameter. Vasculature: Atherosclerotic calcification of the aorta and its branch vessels. Bones: Bone windows demonstrate no suspicious lytic or blastic lesions. The visible osseous structures are intact. Degenerative changes are seen in the lower lumbar spine. Soft tissues: There is a 2.7 x 2.2 cm fluid density structure abutting the right gluteus yazmin muscle (Series 3, Image 120), may represent sequela of prior trauma. There is no associated rim enhancement. Procedure Note Virgen Enriquez MD - 03/02/2025 PROCEDURE: CT ABDOMEN PELVIS W CONTRAST, DATE/TIME OF EXAM: 03/01/2025 9:14 PM, LOCATION [facility] INDICATION: R41.82: Altered mental status, unspecified altered mental status type ADDITIONAL CLINICAL INFORMATION: Ordering Provider Reason For Exam: testicular abscess ? post op complication COMPARISON: None. TECHNIQUE: CT of the abdomen and pelvis was performed following the uneventful administration of 100 mL of Isovue 370 intravenous contrast according to standard protocol. Findings: Lower Chest: Several calcified granulomas in the right lower lobe, otherwise the lung bases are clear. Partially visualized small volume pericardial effusion. The coronary arteries and aortic valve is atherosclerotic. Liver: The liver is diffusely hypoattenuating, consistent with diffuse hepatic steatosis. Additionally, the liver is enlarged measuring up to 24.3 cmin craniocaudal length. There appears to be fistulous communication between the right hepatic vein and a branch of the right portal vein. 1.0 cm hypoattenuating lesion within hepatic segment 5 is incompletely characterized but likely represents a cyst versus hemangioma. Gallbladder and Bile Ducts: Layering sludge and stones are seen within the dependent aspect of the gallbladder. There is also mild pericholecystic fluid along the lateral aspect of the gallbladder. No intra or extrahepatic biliary dilatation. Spleen: The spleen is enlarged measuring up to 16.3 cm and AP diameter. Pancreas: Normal. Adrenals: Normal. Kidneys: Hypoattenuating cysts in the left kidney, measuring up to 1.9 cm in diameter. Otherwise the bilateral kidneys enhance symmetrically, without hydronephrosis or nephrolithiasis. Gastrointestinal: The stomach and visualized loops of large and small bowel areunremarkable. Normal appendix. Mesentery/Peritoneum/Retroperitoneum: No free intraperitoneal air. No free fluid in the abdomen or pelvis.Small bilateral fat-containing inguinal hernias. Bladder: Urinary bladder is partially distended but otherwise appears normal. Reproductive Organs: Within the left hemiscrotum, there is suggestion of dilated vessels,which may reflect underlying varicocele. The scrotum is not fully visualizedto rule out a testicular abscess as clinically queried. Prostatomegaly measuring 5.1 cm in transverse diameter. Vasculature: Atherosclerotic calcification of the aorta and its branch vessels. Bones: Bone windows demonstrate no suspicious lytic or blastic lesions. The visible osseous structures are intact. Degenerative changes are seen inthe lower lumbar spine. Soft tissues: There is a 2.7 x 2.2 cm fluid density structure abutting the rightgluteus yazmin muscle (Series 3, Image 120), may represent sequela of prior trauma. There is no associated rim enhancement. Impression: 1.The scrotum is incompletely visualized to definitively rule out a testicular abscess as clinically queried. Within the visualized portionsof the left hemiscrotum, there is suggestion of dilated vasculature, whichmay reflect underlying varicocele. Sonographic evaluation of the scrotum maybe obtained for further characterization if clinically indicated. 2.Hepatosplenomegaly and hepatic steatosis. Additionally, there appearsto be fistulous communication between the right hepatic vein and a branchof the right portal vein. 3.Cholelithiasis with a small volume of pericholecystic fluid which maybe seen with acute cholecystitis. Recommend clinical correlation. Rightupper quadrant ultrasound may be obtained if clinically indicated. 4.Small volume pericardial effusion. 5.Small 2.7 x 2.2 cm fluid density structure within the right gluteus yazmin muscle, may represent sequela of prior trauma, unclear clinical significance. > Dictated by Miguel Angel Chow MD (resident in diagnostic radiology). I, Austin Enriquez MD have personally reviewed and interpreted this examination/study. > Interpreting Provider: Austin Enriquez MD on 03/02/2025 8:32 AM [address] Gale MD CT ORDERABLES Final Result * TROPONIN-I HIGH SENSITIVE REFLEX 1HOUR (03/01/2025 7:22 PM CDT) Troponin I High Sensitive 4 <=35 ng/L 03/01/2025 8:02 PM CDT [facility] Delta Troponin I HS 0 <6 ng/L 03/01/2025 8:02 PM CDT [facility] Blood BLOOD SPECIMEN / Unknown Venipuncture / Unknown 03/01/2025 7:22 PM CDT 03/01/2025 7:22 PM CDT Yehuda Gale MD LAB - CHEMISTRY ORDERABLES Final Result [facility] [address] [place] [address], [facility] [phone] * XR Chest 1Vw (03/01/2025 6:59 PM CDT) Anatomical Region Laterality Modality Chest Digital Radiogra phy 03/01/2025 7:47 PM CDT Narrative 03/02/2025 11:39 AM CDT PROCEDURE: XR CHEST 1VW, DATE/TIME OF EXAM: 03/01/2025 6:59 PM, LOCATION [facility] INDICATION: R41.82: Altered mental status, unspecified altered mental status type ADDITIONAL CLINICAL INFORMATION: Ordering Provider Reason For Exam: pna? Technologist Note: Additional: COMPARISON: None. TECHNIQUE: Frontal radiograph of the chest. FINDINGS/IMPRESSION: The lungs are clear. Right basilar calcified granuloma. There is no focal consolidation, pleural effusion, or pneumothorax. The cardiomediastinal silhouette is normal. The visible bony thorax is intact. Report dictated by Thomas Asif MD, (Industrial Specialist). IBeth MD have personally reviewed and interpreted this examination/study. > Interpreting Provider: Beth Gorman MD on 03/02/2025 11:39 AM Procedure Note Beth Gorman MD - 03/02/2025 PROCEDURE: XR CHEST 1VW, DATE/TIME OF EXAM: 03/01/2025 6:59 PM, LOCATION [facility] INDICATION: R41.82: Altered mental status, unspecified altered mental status type ADDITIONAL CLINICAL INFORMATION: Ordering Provider Reason For Exam: pna? Technologist Note: Additional: COMPARISON: None. TECHNIQUE: Frontal radiograph of the chest. FINDINGS/IMPRESSION: The lungs are clear. Right basilar calcified granuloma. There is nofocal consolidation, pleural effusion, or pneumothorax. The cardiomediastinal silhouette is normal. The visible bony thorax is intact. Report dictated by Thomas Asif MD, (Industrial Specialist). Beth Rosales MD have personally reviewed and interpreted this examination/study. > Interpreting Provider: Beth Gorman MD on 03/02/2025 11:39 AM Yehuda Gale MD DIAGNOSTIC IMAGING ORDERABLES Fi nal Result * CT Head Wo Contrast (03/01/2025 6:47 PM CDT) Anatomical Region Laterality Modality Head Computed Tomogra phy 03/01/2025 6:56 PM CDT Impressions 03/01/2025 11:46 PM CDT IMPRESSION: 1.No acute intracranial hemorrhage, midline shift, or significant mass effect. 2.Please note that CT is insensitive to nonhemorrhagic strokes and MRI of the brain should be considered, if there is clinical concern for acute cerebral infarction. > Dictated by Thomas Asif MD, (resident in diagnostic radiology). Destini Rosales MD have personally reviewed and interpreted this examination/study. > Interpreting Provider: Destini Mar MD on 03/01/2025 11:46 PM Narrative 03/01/2025 11:46 PM CDT PROCEDURE: CT HEAD WO CONTRAST, DATE/TIME OF EXAM: 03/01/2025 6:47 PM, LOCATION [facility] INDICATION: R41.82: Altered mental status, unspecified altered mental status type ADDITIONAL CLINICAL INFORMATION: Ordering Provider Reason For Exam: AMS Technologist Note: None. Additional: None. TECHNIQUE: CT of the head was performed without contrast according to standard protocol. CT dose reduction technique was used, including Automated Exposure Control. COMPARISON: No prior study is available for comparison at the time of this dictation. FINDINGS: No acute intracranial hemorrhage or intra- or extra-axial fluid collections are identified. There is mild cerebral volume loss with associated ex vacuo ventricular dilatation. The basal cisterns are patent. No mass effect or midline shift is seen. The lancaster-white matter differentiation is normal. Periventricular white matter hypoattenuation is a nonspecific finding that may be indicative of chronic small vessel ischemic disease. There is atherosclerotic calcification of the carotid siphons. No acute calvarial fracture is identified. The orbits appear normal. There is mild paranasal sinus disease. The mastoid air cells are clear. Small amount of cerumen is present in the external auditory canals. No soft tissue abnormality is identified. Procedure Note Destini Mar MD - 03/01/2025 PROCEDURE: CT HEAD WO CONTRAST, DATE/TIME OF EXAM: 03/01/2025 6:47 PM, LOCATION [facility] INDICATION: R41.82: Altered mental status, unspecified altered mental status type ADDITIONAL CLINICAL INFORMATION: Ordering Provider Reason For Exam: AMS Technologist Note: None. Additional: None. TECHNIQUE: CT of the head was performed without contrast according to standard protocol. CT dose reduction technique was used, including Automated Exposure Control. COMPARISON: No prior study is available for comparison at the time ofthis dictation. FINDINGS: No acute intracranial hemorrhage or intra- or extra-axial fluidcollections are identified. There is mild cerebral volume loss with associated exvacuo ventricular dilatation. The basal cisterns are patent. No mass effect or midline shift is seen. The lancaster-white matter differentiation is normal. Periventricular white matter hypoattenuation is a nonspecific findingthat may be indicative of chronic small vessel ischemic disease. There is atherosclerotic calcification of the carotid siphons. No acute calvarial fracture is identified. The orbits appear normal. There is mild paranasal sinus disease. The mastoid air cells are clear. Small amount of cerumen is present in the external auditory canals. No soft tissue abnormality is identified. IMPRESSION: 1.No acute intracranial hemorrhage, midline shift, or significant mass effect. 2.Please note that CT is insensitive to nonhemorrhagic strokes and MRIof the brain should be considered, if there is clinical concern for acute cerebral infarction. > Dictated by Thomas Asif MD, (resident in diagnostic radiology). Destini Rosales MD have personally reviewed and interpretedthis examination/study. > Interpreting Provider: Destini Mar MD on 03/01/2025 11:[address] MD [address] ORDERABLES Final Result * CULTURE BLOOD (03/01/2025 6:12 PM CDT) Only the most recent of2 resultswithin the time period is included. Pathologist [facility] Culture No growth day 5 DELIA 03/07/2025 12:01 AM CDT [facility] MICROBIOLOGY Blood PERIPHERAL BLOOD / Unknown Venipuncture / Unknown 03/01/2025 6:12 PM CDT 03/01/2025 6:29 PM CDT Yehuda Gale MD LAB - MICROBIOLOGY ORDERABLES Fi nal Result [facility] MICROBIOLOGY [address] [place] [address], [facility] [phone] * (ABNORMAL) PT-INR [facility] (03/01/2025 6:00 PM CDT) Pathologist [facility] PT 18.5(H) 12.1 - 14.8 Seconds 03/01/2025 7:00 PM CDT [facility] INR 1.6 See Comment 03/01/2025 7:00 PM CDT [facility] Comment:The suggested therap eutic range for standard coumadin (warfarin) therapy is an INR of 2.0-3.0. For high-risk patients (Mechanical Mitral Valve Prosthesis, etc.), the suggested prophylactic therapeutic range is an INR of 2.5-3.5. Blood BLOOD SPECIMEN / Unknown Venipuncture / Unknown 03/01/2025 6:00 PM CDT 03/01/2025 6:29 PM CDT Yehuda Gale MD LAB - COAGULATION ORDERABLES Fin al Result [facility] [address] [place] [address], [place] [phone] * LACTIC ACID BLOOD REFLEX TO REPEAT (03/01/2025 6:00 PM CDT) Pathologist [facility] Lactic Acid-Stat 1.6 <=2.0 mmol/L 03/01/2025 7:04 PM CDT [facility] Blood BLOOD SPECIMEN / Unknown Venipuncture / Unknown 03/01/2025 6:00 PM CDT 03/01/2025 6:30 PM CDT us Yehuda Gale MD LAB - CHEMISTRY ORDERABLES Final Result Performing Organization Address [facility]/ZIP Co de Phone Number [address] [address], [facility] [phone] * TROPONIN-I HIGH SENSITIVE BASELINE + 1HR (03/01/2025 6:00 PM CDT) Pathologist [facility] Troponin I High Sensitive 4 <=35 ng/L 03/01/2025 7:12 PM T [facility] Blood BLOOD SPECIMEN / Unknown Venipuncture / Unknown 03/01/2025 6:00 PM CDT 03/01/2025 6:30 PM CDT Yehuda Gale MD LAB - CHEMISTRY ORDERABLES Final Result Performing Organization Address [facility]/ZIP Co de Phone Number [address] [address], [facility] [phone] * (ABNORMAL) CBC W AUTO DIFFERENTIAL (03/01/2025 6:00 PM CDT) [facility] WBC 14.8(H) 4.0 - 10.7 x10E9/L 03/01/2025 7:06 PM [facility] RBC Count 5.01 4.30 - 5.80 x10E12/L 03/01/2025 7:06 PM [facility] Hemoglobin 12.7(L) 13.3 - 17.5 g/dL 03/01/2025 7:06 PM [facility] Hematocrit 37.1(L) 38.7 - 51.1 % 03/01/2025 7:06 PM [facility] MCV 74.1(L) 80.0 - 98.0 fL 03/01/2025 7:06 PM [facility] MCH 25.3(L) 26.7 - 33.6 pg 03/01/2025 7:06 PM [facility] MCHC 34.2 31.7 - 36.3 g/dL 03/01/2025 7:06 PM [facility] RDW-CV 14.4 11.3 - 14.8 % 03/01/2025 7:06 PM [facility] Platelet Count 142(L) 150 - 420 x10E9/L 03/01/2025 7:06 PM [facility] MPV 9.9 7.8 - 11.4 fL 03/01/2025 7:06 PM [facility] Neutrophil % 89.2(H) 41.0 - 74.0 % 03/01/2025 7:06 PM [facility] Lymphocyte % 2.4(L) 17.0 - 47.0 % 03/01/2025 7:06 PM [facility] Monocyte % 6.6 3.0 - 11.0 % 03/01/2025 7:06 PM [facility] Eosinophil % 0.5 0.0 - 7.0 % 03/01/2025 7:06 PM [facility] Basophil % 0.1 0.0 - 1.6 % 03/01/2025 7:06 PM [facility] Immature Granulocytes % 1.2(H) 0.0 - 1.0 % 03/01/2025 7:06 PM [facility] Neutrophil Absolute 13.16(H) 1.60 - 7.50 x10E9/L 03/01/2025 7:06 PM [facility] Lymphocyte Absolute 0.36(L) 1.00 - 4.40 x10E9/L 03/01/2025 7:06 PM [facility] Monocyte Absolute 0.98 0.15 - 1.00 x10E9/L 03/01/2025 7:06 PM [facility] Eosinophil Absolute 0.08 0.00 - 0.60 x10E9/L 03/01/2025 7:06 PM [facility] Basophil Absolute 0.02 0.00 - 0.13 x10E9/L 03/01/2025 7:06 PM [facility] Blood BLOOD SPECIMEN / Unknown Venipuncture / Unknown 03/01/2025 6:00 PM CDT 03/01/2025 6:30 PM CDT Yehuda Gale MD LAB - HEMATOLOGY ORDERABLES Angie l Result [address] [address], [place] [phone] * AMMONIA (03/01/2025 6:00 PM CDT) Ammonia 26 <=72 umol/L 03/01/2025 6:42 PM CDT [facility] Blood BLOOD SPECIMEN / Unknown Venipuncture / Unknown 03/01/2025 6:00 PM CDT 03/01/2025 6:28 PM CDT Yehuda Gale MD LAB - CHEMISTRY ORDERABLES Final Result Performing Organization Address City/[facility]/ZIP Co de Phone Number [address] [address], [place] [phone] from Last 3 Months Insurance SELF PAY NO INSURANCE Member Subscriber Plan / Payer (Ef fective for All Dates) Name:Juan Manuel Avalos Jr. Member ID:Not on file Relation to Subscriber:Self Name:JUAN MANUEL AVALOS Subscriber ID:Not on file Payer ID:Not on file Group ID:Not on file Type:Self Pay Address: [place], [place] [employer] MEDICARE Advance Directives * Full Code (Latest Code Status on File) Date Activated Date Inactivated Comments 03/01/2025 11:50 PM 03/08/2025 3:17 PM Care Teams Outdoor Studies Professor Relationship Specialty Start Date End Date Hector Rhodes MD PCP - General Internal Medicine 12/17/18
--- OUTSIDE RECORDS SUMMARY | 2025-04-07 11:05 | XMS_ITS | Encounter Summary ---
Author Organization [facility] Address [address] [place] [address] Phone Care Team Providers Care Sea Kayaking Guide Name Role Phone Galina Evans MD Primary Care Provider Reason for Visit * Auth/Cert (Routine) Specialty Diagnoses / Procedures Referred By Contac t Referred To Contact Referral ID Status Reason Start Date Expiration Date Visits Re quested Visits Authorized [id number] Encounter Details Date Type Department Care Team (Late st Contact Info) Description 04/06/2025 2:00 PM CDT [facility] [address] [place] [address] Farideh Ross RN [place] - WOUND VISIT Social History Tobacco Use Types Packs/Day Years Used Date Smoking Tobacco: Never Assessed Sex and Gender Information Value Date Recorded Sex Assigned at Not on file Legal Sex Male 9:59 PM CDT Gender Identity Not on file Sexual Orientation Not on file documented as of this encounter Last Filed Vital Signs Vital Sign Reading Time Taken Comments Blood Pressure 100/64 04/06/2025 3:11 PM CDT Pulse 60 04/06/2025 3:11 PM CDT Temperature 37.1 C (98.7 F) 04/06/2025 3:11 PM CDT Respiratory Rate 18 04/06/2025 3:11 PM CDT Oxygen Saturation 98% 04/06/2025 3:11 PM CDT Inhaled Oxygen Concentration - - Weight - - Height - - Body Mass Index - - documented in this encounter Plan of Treatment Upcoming Encounters Date Type Department Care Team (Late st Contact Info) Description 04/07/2025 2:00 PM CDT Home Care Visit [address] [address] Vivian Holman [place] 04/07/2025 2:30 PM CDT Home Care Visit [address] [address] Perri Lin, LIBRARY SERIALS ASSISTANT 04/08/2025 1:00 AM CDT Home Care Visit [address] [address] Farideh Ross RN [place] 04/11/2025 1:00 AM CDT Home Care Visit [address] [address] Farideh Ross RN [place] 04/11/2025 1:30 PM CDT Home Care Visit [address] [address] Perri Lin, LIBRARY SERIALS ASSISTANT 04/13/2025 1:00 AM CDT Home Care Visit [address] [address] Catrachita Alberts PT [place] 04/14/2025 1:00 AM CDT Home Care Visit [address] [address] Vivian Holman [place] 04/15/2025 1:00 AM CDT Home Care Visit [address] [address] Farideh Ross RN [place] 04/15/2025 2:00 AM CDT Home Care Visit [address] [address] Vivian Holman [place] 04/18/2025 1:00 AM CDT Home Care Visit [address] [address] Farideh Ross RN [place] 04/22/2025 1:00 AM CDT Home Care Visit [address] [address] Farideh Ross RN [place] 04/27/2025 1:00 AM CDT Home Care Visit [address] [address] Farideh Ross RN [place] 05/04/2025 1:00 AM CDT Home Care Visit [address] [address] Farideh Ross RN [place] 05/11/2025 1:00 AM CDT Home Care Visit [address] [address] Farideh Ross RN [place] 05/18/2025 1:00 AM CDT Appointment [address] [address] Farideh Ross RN [place] documented as of this encounter Visit Diagnoses Not on filedocumented in this encounter Care Teams Sea Kayaking Guide Relationship Specialty Start Date End Date Galina Evans MD [address] [facility] [address] [place] [address] PCP - General Family Medicine 03/08/25 documented as of this encounter
--- OUTSIDE RECORDS SUMMARY | 2025-04-07 11:06 | XMS_ITS | Clinical Summary ---
Author Organization [facility] Address [address] [place] [address] Phone Care Team Providers Care Journeyman Pipefitter Name Role Phone Galina Evans MD Primary Care Provider Allergies Active Allergy Reactions Criticality Noted Date Comments Lisinopril Swelling 03/25/2025 Medications amLODIPine (NORVASC) 5 MG Tablet Take 5 mg by mouth daily. 5 Active oxybutynin (DITROPAN-XL) 10 MG TABLET SR 24 HR Take 10 mg by mouth daily. 5 Active atenolol (TENORMIN) 25 MG Tablet Take 25 mg by mouth daily. 5 Active allopurinol (ZYLOPRIM) 300 MG Tablet Take 300 mg by mouth daily. 5 Active amoxicillin-cla vulanate (AUGMENTIN) 875-125 MG Tablet Take 1 Tablet by mouth 2 times daily. 5 Active sulfamethoxazol e-trimethoprim DS (BACTRIM DS, SEPTRA DS) 800-160 MG Tablet Take 1 Tablet by mouth every 12 hours. 5 Active atorvastatin (LIPITOR) 40 MG Tablet Take 40 mg by mouth nightly. Active mupirocin (BACTROBAN) 2 % Ointment Apply 1 Application daily. 5 Active Encounters Date Type Department Care Team Description 04/06/2025 2:00 PM CDT [facility] [address] [place] [address] Farideh Ross RN SN - WOUND VISIT 04/05/2025 2:00 PM CDT Home Care Visit [address] [address] Vivian Holman OTA OT - HOME VISIT 04/05/2025 1:00 PM CDT Home Care Visit [address] [address] Perri Lin NEWSPAPER PHOTOGRAPHER PT - HOME VISIT 04/04/2025 3:00 PM CDT Home Care Visit [address] [address] Farideh Ross RN SN - WOUND VISIT 04/01/2025 4:00 PM CDT Home Care Visit [address] [address] Farideh Ross RN SN - WOUND VISIT 04/01/2025 11:00 AM CDT Home Care Visit [address] [address] Perri Lin, NEWSPAPER PHOTOGRAPHER PT - HOME VISIT 03/30/2025 11:00 AM CDT Home Care Visit [address] [address] Vivian Holman OTA OT - HOME VISIT 03/30/2025 11:00 AM CDT Home Care Visit [address] [address] Farideh Ross RN SN - WOUND VISIT 03/29/2025 11:00 AM CDT Home Care Visit [address] [address] Catrachita Alberts PT PT - INITIAL EVALUATION 03/28/2025 4:00 PM CDT Home Care Visit [address] [address] Farideh Ross, RN SN - WOUND VISIT 03/28/2025 12:30 PM CDT Home Care Visit [address] [address] Carol Mendoza OT OT - INITIAL EVALUATION 03/25/2025 3:00 PM CDT Home Care Visit [address] [address] Farideh Ross, RN SN - OASIS START OF CARE 03/25/2025 Plan of Care Documentation [address] [address] 03/23/2025 Home Care Visit [address] [address] Charisma Lao, DEVORAH TELEPHONE ENCOUNTER from Last 3 Months Social History Tobacco [...] CDT Inhaled Oxygen Concentration - - Weight 84.8 kg (187 lb) 03/29/2025 11:38 AM CDT Height 190.5 cm (6' 3) 03/29/2025 11:38 AM CDT Body Mass Index 23.37 03/29/2025 11:38 AM CDT Plan of Treatment Upcoming Encounters Date Type Department Care Team (Late st Contact Info) Description 04/07/2025 2:00 PM CDT Home Care Visit [address] [address] Vivian Holman OTA [place] 04/07/2025 2:30 PM CDT Home Care Visit [address] [address] Perri Lin, NEWSPAPER PHOTOGRAPHER 04/08/2025 1:00 AM CDT Home Care Visit [address] [address] Farideh Ross RN [place] 04/11/2025 1:00 AM CDT Home Care Visit [address] [address] Farideh Ross RN [place] 04/11/2025 1:30 PM CDT Home Care Visit [address] [address] Perri Lin, NEWSPAPER PHOTOGRAPHER 04/13/2025 1:00 AM CDT Home Care Visit [address] [address] Catrachita Alberts, [place] 04/14/2025 1:00 AM CDT Home Care Visit [address] [address] Vivian Holman OTA [place] 04/15/2025 1:00 AM CDT Home Care Visit [address] [address] Farideh Ross, RN [place] 04/15/2025 2:00 AM CDT Home Care Visit [address] [address] Vivian Holman OTA [place] 04/18/2025 1:00 AM CDT Home Care Visit [address] [address] Farideh Ross, RN [place] 04/22/2025 1:00 AM CDT Home Care Visit [address] [address] Farideh Ross RN [place] 04/27/2025 1:00 AM CDT Home Care Visit [address] [address] Farideh Ross RN [place] 05/04/2025 1:00 AM CDT Home Care Visit [address] [address] Farideh Ross RN [place] 05/11/2025 1:00 AM CDT [facility] Visit [facility] [address] [place] [address] Farideh Ross RN [place] 05/18/2025 1:00 AM CDT Appointment [facility] [address] [place] [address] Farideh Ross RN [place] Insurance MEDICARE C [place] Advance Directives * Full Code (Latest Code Status on File) Date Activated Date Inactivated Comments 03/25/2025 5:58 PM Care Teams Journeyman Pipefitter Relationship Specialty Start Date End Date Galina Evans MD [address] [facility] [address] [place] [address] PCP - General Family Medicine 03/08/25
[2025-04-07 13:09] LABS: Alanine Aminotransferase 30 U/L (6-50); Albumin Level 4.3 g/dL (3.5-5.1); Alkaline Phosphatase 108 U/L (38-126); Anion Gap 12 mmol/L (4-12); Aspartate Amino Transferase 40 U/L (17-59); Bilirubin,Total 0.8 mg/dL (0.2-1.3); Blood Urea Nitrogen 24 mg/dL (9-20); Calcium 10.3 mg/dL (8.4-10.2); Carbon Dioxide 22 mmol/L (22-30); Chloride 101 mmol/L (98-107); Cholesterol 123 mg/dL (0-200); Estimated Glomerular Filt Rate 52; Glucose 99 mg/dL (65-110); HDL Direct 38 mg/dL; Potassium 4.4 mmol/L (3.4-5.0); Sodium 135 mmol/L (137-145); Total Protein 9.4 g/dL (6.3-8.2); Triglycerides 75 mg/dL (<150); Uric Acid 4.2 mg/dL (3.5-8.5)
[2025-04-07 13:13] LABS: Hematocrit 41.3 % (42.0-52.0); Hemoglobin 13.0 g/dL (14.0-18.0); Immature Granulocyte Percent A 0.1 % (0-0.5); Lymphocytes Absolute Auto 2.69 K/mm3 (0.9-3.2); Mean Corpuscular HGB Conc 31.5 g/dl (32-36); Mean Corpuscular Hemoglobin 24.4 pg (26-34); Mean Corpuscular Volume 77.5 fl (80-100); Nucleated Red Blood Cells Absolute Auto 0.000 K/mm3 (0.0-0.012); Nucleated Red Blood Cells Perc 0.0 % (0.0-0.2); Platelet Count Result 212 k/mm3 (150-375); Red Blood Count 5.33 M/mm3 (4.6-6.20); White Blood Count 7.1 K/mm3 (4.5-10.0)
[2025-04-07 13:44] LABS: Hemoglobin A1C 5.3 % (<5.7)
[2025-04-07 13:45] LABS: Prostate Specific Antigen 1.1 ng/mL (< OR = 4.0)
[2025-04-07 13:50] LABS: Thyroid Stimulating Hormone Reflex 0.899 uIU/mL (0.465-4.68)
[2025-04-07 13:59] LABS: Ferritin 411.00 ng/mL (11.1-264)
[2025-04-07 14:21] LABS: Vitamin B12 552.0 pg/mL (239-931)
== END 2025-04-07 11:01 | disposition home or self-care (01) ==
LOC: ANHGOSHLAB 11:03
PROVIDERS: PCP Family Medicine; Visit Provider Family Medicine
DX: D64.9 Anemia, unspecified (principal); E55.9 Vitamin D deficiency, unspecified; M10.00 Idiopathic gout, unspecified site; I10 Essential (primary) hypertension; R73.9 Hyperglycemia, unspecified; Z12.5 Encounter for screening for malignant neoplasm of prostate
CPT/HCPCS: 36415; 80053; 80061; 82306; 82607; 82728; 82746; 83036; 84153; 84443; 84550; 85025; G0103

== ENCOUNTER 2025-04-08 13:24 | Emergency (ER) | payer OTHER, SELFPAY ==
--- OUTSIDE RECORDS SUMMARY | 2025-04-08 13:27 | XMS_ITS | Clinical Summary ---
Author Organization [facility] Address [address] [place] [address] Phone Care Team Providers Care Band Bias Machine Operator Name Role Phone Galina Evans MD Primary Care Provider Allergies Active Allergy Reactions Criticality Noted Date Comments Lisinopril Swelling 03/25/2025 Medications amLODIPine (NORVASC) 5 MG Tablet Take 5 mg by mouth daily. 5 Active atenolol (TENORMIN) 25 MG Tablet Take 25 mg by mouth daily. 5 Active allopurinol (ZYLOPRIM) 300 MG Tablet Take 300 mg by mouth daily. 5 Active amoxicillin-cl avulanate (AUGMENTIN) 875-125 MG Tablet Take 1 Tablet by mouth 2 times daily. 5 Active sulfamethoxazo le-trimethopri m DS (BACTRIM DS, SEPTRA DS) 800-160 MG Tablet Take 1 Tablet by mouth every 12 hours. 5 Active atorvastatin (LIPITOR) 40 MG Tablet Take 40 mg by mouth nightly. Active mupirocin (BACTROBAN) 2 % Ointment Apply 1 Application daily. 5 Active oxybutynin (DITROPAN-XL) 10 MG TABLET SR 24 HR Take 10 mg by mouth daily. 5 04/08/20 25 Discontin ued(Med List Clean Up) Encounters Date Type Department Care Team Description 04/08/2025 12:00 PM CDT Home Care Visit [facility] [address] [place] [address] Farideh Ross RN SN - WOUND VISIT 04/07/2025 2:30 PM CDT Home Care Visit [address] [address] Perri Lin, TIMING ADJUSTER PT - HOME VISIT 04/07/2025 2:00 PM CDT Home Care Visit [address] [address] Vivian Holman, HYDROELECTRIC PLANT MAINTAINER OT - HOME VISIT 04/06/2025 2:00 PM CDT Home Care Visit [address] [address] Farideh Ross, RN SN - WOUND VISIT 04/05/2025 2:00 PM CDT Home Care Visit [address] [address] Vivian Holman, JETHRO OT - HOME VISIT 04/05/2025 1:00 PM CDT Home Care Visit [address] [address] Perri Lin, TIMING ADJUSTER PT - HOME VISIT 04/04/2025 3:00 PM CDT Home Care Visit [address] [address] Farideh Ross, RN SN - WOUND VISIT 04/01/2025 4:00 PM CDT Home Care Visit [address] [address] Farideh Ross, RN SN - WOUND VISIT 04/01/2025 11:00 AM CDT Home Care Visit [address] [address] Perri Lin, TIMING ADJUSTER PT - HOME VISIT 03/30/2025 11:00 AM CDT Home Care Visit [address] [address] Vivian Holman, JETHRO OT - HOME VISIT 03/30/2025 11:00 AM CDT Home Care Visit [address] [address] Farideh Ross, RN SN - WOUND VISIT 03/29/2025 11:00 AM CDT Home Care Visit [address] [address] Catrachita Alberts PT PT - INITIAL EVALUATION 03/28/2025 4:00 PM CDT Home Care Visit [address] [address] Farideh Ross, RN SN - WOUND VISIT 03/28/2025 12:30 PM CDT Home Care Visit [address] [address] Carol Mendoza OT OT - INITIAL EVALUATION 03/25/2025 3:00 PM CDT Home Care Visit [address] [address] Farideh Ross, RN SN - OASIS START OF CARE 03/25/2025 Plan of Care Documentation [address] [address] 03/23/2025 Home Care Visit [address] [address] Charisma Lao, DEVORAH TELEPHONE ENCOUNTER from Last 3 Months Social History Tobacco Use Types Packs/Day Years Used Date Smoking Tobacco: Never Assessed Sex and Gender Information Value Date Recorded Sex Assigned at Not on file Legal Sex Male 9:59 PM CDT Gender Identity Not on file Sexual Orientation Not on file Last Filed Vital Signs Vital Sign Reading Time Taken Comments Blood Pressure 128/68 04/08/2025 12:02 PM CDT Pulse 60 04/08/2025 12:02 PM CDT Temperature 36.4 C (97.6 F) 04/08/2025 12:02 PM CDT Respiratory Rate 18 04/08/2025 12:02 PM CDT Oxygen Saturation 97% 04/08/2025 12:02 PM CDT Inhaled Oxygen Concentration - - Weight 84.8 kg (187 lb) 03/29/2025 11:38 AM CDT Height 190.5 cm (6' 3) 03/29/2025 11:38 AM CDT Body Mass Index 23.37 03/29/2025 11:38 AM CDT Plan of Treatment Upcoming Encounters Date Type Department Care Team (Late st Contact Info) Description 04/11/2025 1:30 PM CDT Home Care Visit [address] [address] Perri Lin, TIMING ADJUSTER 04/13/2025 1:00 AM CDT Home Care Visit [address] [address] Catrachita Alberts, PT [place] 04/13/2025 1:00 AM CDT Home Care Visit [address] [address] Farideh Ross RN [place] 04/14/2025 1:00 AM CDT Home Care Visit [address] [address] Vivian Holman OTA [place] 04/15/2025 1:00 AM CDT Home Care Visit [address] [address] Farideh Ross RN [place] 04/15/2025 2:00 AM CDT Home Care Visit [address] [address] Vivian Holman OTA [place] 04/18/2025 1:00 AM CDT Home Care Visit [address] [address] Farideh Ross RN [place] 04/22/2025 1:00 AM CDT Home Care Visit [address] [address] Farideh Ross RN [place] 04/27/2025 1:00 AM CDT Home Care Visit [address] [address] Farideh Ross RN [place] 05/04/2025 1:00 AM CDT [facility] Care Visit [facility] [address] [place] [address] Farideh Ross RN [place] 05/11/2025 1:00 AM CDT Home Care Visit [facility] [address] [place] [address] Farideh Ross RN [place] 05/18/2025 1:00 AM CD[facility] [address] [place] [address] Farideh Ross RN [place] Insurance MEDICARE C [place] Advance Directives * Full Code (Latest Code Status on File) Date Activated Date Inactivated Comments 03/25/2025 5:58 PM Care Teams Band Bias Machine Operator Relationship Specialty Start Date End Date Galina Evans MD [address] [place] [address] [address] [place] [address] PCP - General Family Medicine 03/08/25
--- OUTSIDE RECORDS SUMMARY | 2025-04-08 13:27 | XMS_ITS | Encounter Summary ---
Author Organization [facility] Address [address] [place] [address] Phone Care Team Providers Care Want Ad Receiver Name Role Phone Galina Evans MD Primary Care Provider Reason for Visit * Auth/Cert (Routine) Specialty Diagnoses / Procedures Referred By Contac t Referred To Contact Referral ID Status Reason Start Date Expiration Date Visits Re quested Visits Authorized [id number] Encounter Details Date Type Department Care Team (Late st Contact Info) Description 04/07/2025 2:30 PM CD[facility] [address] [place] [address] Perri Lin, KUSUM PT - HOME VISIT Social History Tobacco Use Types Packs/Day Years Used Date Smoking Tobacco: Never Assessed Sex and Gender Information Value Date Recorded Sex Assigned at Not on file Legal Sex Male 9:59 PM CDT Gender Identity Not on file Sexual Orientation Not on file documented as of this encounter Last Filed Vital Signs Vital Sign Reading Time Taken Comments Blood Pressure 95/68 04/07/2025 2:15 PM CDT Pulse 57 04/07/2025 2:15 PM CDT Temperature 36.5 C (97.7 F) 04/07/2025 2:15 PM CDT Respiratory Rate 18 04/07/2025 2:15 PM CDT Oxygen Saturation 98% 04/07/2025 2:15 PM CDT Inhaled Oxygen Concentration - - Weight - - Height - - Body Mass Index - - documented in this encounter Plan of Treatment Upcoming Encounters Date Type Department Care Team (Late st Contact Info) Description 04/11/2025 1:30 PM CDT Home Care Visit [address] [address] Perri Lin, MARINE MAMMAL TRAINER 04/13/2025 1:00 AM CDT Home Care Visit [address] [address] Catrachita Alberts PT [place] 04/13/2025 1:00 AM CDT Home Care Visit [address] [address] Farideh Ross, RN [place] 04/14/2025 1:00 AM CDT Home Care Visit [address] [address] Vivian Holman OTA [place] 04/15/2025 1:00 AM CDT Home Care Visit [address] [address] Farideh Ross RN [place] 04/15/2025 2:00 AM CDT Home Care Visit [address] [address] Vivian Holman NATIONAL EXPANSION RECRUITER [place] 04/18/2025 1:00 AM CDT Home Care Visit [address] [address] Farideh Ross RN [place] 04/22/2025 1:00 AM CDT Home Care Visit [address] [address] Farideh Ross RN [place] 04/27/2025 1:00 AM CDT Home Care Visit [address] [address] Farideh Ross, RN [place] 05/04/2025 1:00 AM CDT Home Care Visit [address] [address] Farideh Ross RN [place] 05/11/2025 1:00 AM CDT Home Care Visit [address] [address] Farideh Ross RN [place] 05/18/2025 1:00 AM CDT Appointment [facility] [address] [place] [address] Farideh Ross RN [place] documented as of this encounter Visit Diagnoses Not on filedocumented in this encounter Home Health Visit - Care Plan Visit Details Visit Type -PT - HOME VISIT Discipline -Physical Therapy Problems Problem Description Start Date Status Goals Interve ntions PT COMPREHENSIVE Disciplines: Physical Therapy 03/29/2025 Active 5 goals linked to scheduled/documente d interventions 5 goal interventions scheduled/documente d in this visit Goals Goal Associated Problem Outcome Goal Met? Visit Notes PT Balance Description: Short Term Goal: Patient will show improved dynamic standing balance as demonstrated by improved Tinetti score from 16 to 21 in order to lower risk for falls. To be met by 04/16/25. PT COMPREHENSIVE No PT Stairs and Home Exit Description: Short Term Goal: Patient will be independent on household/entry steps with use of cane while maintaining ordered precautions to allow for ability to enter/exit home safely . To be met by 04/16/25. PT COMPREHENSIVE No PT Gait Description: Short Term Goal: Patient will ambulate independently 150-200 feet with use of straight cane, over even surfaces and uneven surfaces with the following improved gait characteristics no loss of balance, good postureb in order to be safe going to [facility]. To be met by 04/16/25. PT COMPREHENSIVE No PT Transfers Description: Short Term Goal: Patient will perform household/car transfers independently with use of cane ; in order to safely leave home for appointments. To be met by 04/16/25. PT COMPREHENSIVE No PT HEP Description: Short Term Goal: Patient and/or caregiver will independently with initial HEP of strengthening, balance training and conditioning in order to progress strength and functional mobility. To be met by 04/16/25. PT COMPREHENSIVE No Interventions Intervention Associated Problem/Goal Status Variance Visit Notes PT Balance Description: Provide balance training for safety and reduced fall risk. Problem:PT COMPREHENSIVE Goal:PT Balance Performed Instructed Patient on skilled balance training: dynamic standing at counter with use of no UE support. Pt stood FT EO, EC, head turns, pertubations and UE lifts; staggered stance EO/EC and tandem stance EO/EC. Pt having increase LOB with EC challenges. Standing toe taps x 20 reps no UE support onto step. Skilled instruction consisting of: verbal cues keep head up. Tolerance to activity: decreased assistance required PT Stairs and Home Exit Description: Instruct in proper safety and technique for stair training or home exit as directed in the goal. Problem:PT COMPREHENSIVE Goal:PT Stairs and Home Exit Performed Patient negotiated 1-2 step from bedroom then one step at kitchen with use of cane with no assistance. Pt uses grab bar or door jam. Skilled instruction consisting of placement of assistive device cane lower down to floor when [facility] T[facility] to activity: decreased assistance required PT Gait Description: Provide gait training for increased safety and efficiency.Progress per patient tolerance and safety. Problem:PT COMPREHENSIVE Goal:PT Gait Performed Patient ambulated with supervision /indep 150 feet with use of straight cane over even surfaces with the following gait characteristics: improved stride, no LOB, keeps cane close to his side. Instructed pt that he can begin using cane in home when family is present. Pt states understanding. Skilled instruction consisting of keep cane out to his side more, keep head up, increase B step height with heel strike provided to Patient. Tolerance to activity increased gait distance and decreased assistance required. PT Transfers Description: Instruct in proper safety and transfer technique. Problem:PT COMPREHENSIVE Goal:PT Transfers Performed Instructed Patient on transfer training: sit to/from stand with use of: st cane. Patient required no assistance. Skilled instruction consisting of hand placement and placement of assistive device next to chair. Tolerance to activity: decreased rod tance required PT HEP Progression Description: Instruct on home exercise program. Progress as tolerated. Problem:PT COMPREHENSIVE Goal:PT HEP Performed Home Exercise Program issued to Patient continue LE HEP, daily walking in home, Pt performed standing ex's x 20 reps: heel raises, toe raises, hip flexion, hip abd/add, hip ext, hamstring curls and mini squats. Pt performed step up x 10 reps each L/R leg lead and one hand support on grab bar. Cues yee mcfarlaneirng standing ex's for improving posture. Response verbalize understanding, return demonstration and ongoing. documented in this encounter Care Teams Want Ad Receiver Relationship Specialty Start Date End Date Galina Evans MD [address] [facility] [address] [place] [address] PCP - General Family Medicine 03/08/25 documented as of this encounter
--- OUTSIDE RECORDS SUMMARY | 2025-04-08 13:27 | XMS_ITS | Encounter Summary ---
Author Organization [facility] Address [address] [place] [address] Phone Care Team Providers Care Business Office Specialist Name Role Phone Galina Evans MD Primary Care Provider Reason for Visit * Auth/Cert (Routine) Specialty Diagnoses / Procedures Referred By Contac t Referred To Contact Referral ID Status Reason Start Date Expiration Date Visits Re quested Visits Authorized [id number] Encounter Details Date Type Department Care Team (Late st Contact Info) Description 04/07/2025 2:00 PM CDT Home Care Visit [facility] [address] [place] [address] Vivian Holman, JETHRO [place] OT - HOME VISIT Social History Tobacco Use [...] Time Taken Comments Blood Pressure 95/68 04/07/2025 2:11 PM CDT Pulse 57 04/07/2025 2:11 PM CDT Temperature 36.6 C (97.9 F) 04/07/2025 2:11 PM CDT Respiratory Rate 18 04/07/2025 2:11 PM CDT Oxygen Saturation 98% 04/07/2025 2:11 PM CDT Inhaled Oxygen Concentration - - Weight - - Height - - Body Mass Index - - documented in this encounter Plan of Treatment Upcoming Encounters Date Type Department Care Team (Late st Contact Info) Description 04/11/2025 1:30 PM CDT Home Care Visit [address] [address] Perri Lin, INFORMATION TECHNOLOGY TEACHER 04/13/2025 1:00 AM CDT Home Care Visit [address] [address] Catrachita Alberts PT [place] 04/13/2025 1:00 AM CDT Home Care Visit [address] [address] Farideh Ross, RN [place] 04/14/2025 1:00 AM CDT Home Care Visit [address] [address] Vivian Holman OTA [place] 04/15/2025 1:00 AM CDT Home Care Visit [address] [address] Farideh Ross RN [place] 04/15/2025 2:00 AM CDT Home Care Visit [address] [address] Vivian Holman [place] 04/18/2025 1:00 AM CDT Home Care Visit [address] [address] Farideh Ross RN [place] 04/22/2025 1:00 AM CDT Home Care Visit [address] [address] Farideh Ross RN [place] 04/27/2025 1:00 AM CDT Home Care Visit [address] [address] Farideh Ross, RN [place] 05/04/2025 1:00 AM CDT Home Care Visit [address] [address] Farideh Ross RN [place] 05/11/2025 1:00 AM CDT Home Care Visit [address] [address] Farideh Ross RN [place] 05/18/2025 1:00 AM CDT Appointment [facility] [address] [place] [address] Farideh Ross RN [place] documented as of this encounter Visit Diagnoses Not on filedocumented in this encounter Home Health Visit - Care Plan Visit Details Visit Type -OT - HOME VISIT Discipline -Occupational Therapy Problems Problem Description Start Date Status Goals Interve ntions OCCUPATIONAL THERAPY EVALUATION ORDER (O) Disciplines: Occupational Therapy Occupational Therapy General Order 03/28/2025 Active 1 goal linked to scheduled/documen colby intervention 1 goal intervention scheduled/document ed in this visit OT COMPREHENSIVE Disciplines: Occupational Therapy 03/28/2025 Active 1 goal linked to scheduled/documen colby intervention 1 goal intervention scheduled/document ed in this visit Goals Goal Associated Problem Outcome Goal Met? Visit Notes Occupational Therapy Evaluation Description: After assessing the patient and discussing the patient's goals the following were identified. Patient Centered Magnetic Tape Composer Operator Goal: to get stronger and return to independent level of function Target date: within 4 weeks OCCUPATIONAL THERAPY EVALUATION ORDER (O) No OT Balance Description: Magnetic Tape Composer Operator Goal: Patient will demonstrate dynamic standing balance from fair - to fair with recommended DME prn to perform ADLs, IADLs, mobilities with good understanding of safety/technique. to be met 04/08/25. OT COMPREHENSIVE No Interventions Intervention Associated Problem/Goal Status Variance Visit Notes OT Evaluation (Order Only) Description: 69 year old male with PMH of HTN, cirrhosis, and recent L-sided hydrocelectomy c/b wound dehiscence who was brought to ED by family for acute generalized weakness and confusion. While in ED, pt vitals s/f fever (Tmax:102.3), tachycardia and labs s/f WBC of 14.8 with elevated LFTs, normal lactate, normal ammonia, and mild elevation of creatinine (resolved on 03/02 s/p LR and D5 infusion). Patient admitted for IV antibiotics. Scrotal US suggested infected hydrocele with cellulitis. Urology consulted, no vanessa rgical intervention. Plan for course of oral antibiotics, continued [place] catheter, and follow up with [facility] urology. Patient was discharged from U on 03/08/25 and admitted to [facility] on 03/10/25. Patient was discharged from [facility] on 5. Patient lives with his sister and mom in a 1 story home but pt has 2 steps from his bedroom to the bathroom and then another 2 steps and 1 step to get to the kitchen. Pts prior level of function was independent with ADLs, IADLs and driving. Pt is retired. Past Medical History: HTN, cirrhosis, and recent L-sided hydrocelectomy c/b wound dehiscence. Patient has family that are able to assist with wound care. Clinical findings: overall functional weakness, impaired functional endurance, decreased safety with and increased assistance with ADLs, IADLs, decline in functional balance, decline in safety and performance of functional transfers/mobilities, B UE weakness, pain. Therapy Focus: ADLs, functional transfers/mobilities, therapeutic exer cise, endurance activities, balance activities, DME/adap equip, overall safety and education/training. Other contributing issues: Pts rehab potential may be limited due to multiple co-morbidities, environmental limitations, motivation, risk of falls, questionable compliance, pain, impulsive. Perform pulse oximetry PRN for intermittent assessment and/ or respiratory distress. Pt is aware and agreeable with goals and POC. Patient and MD are agreeable with plan of care. Problem:OCCUPATIONAL THERAPY EVALUATION ORDER (O) Goal:Occupational Therapy Evaluation Performed OT Balance Description: Instruct on balance techniques and safety. Equipment as needed. Problem:OT COMPREHENSIVE Goal:OT Balance Performed Patient performed dynamic standing balance activity utilizing cane with fair balance. Educated on base of support and weight shifting. Instruction provided to Patient. Response verbalize understanding and return demonstration. Pt completed kitchen mo bility and simulated meal prep including reaching into refrigerator and microwave with SBA for safety education including visual demonstration of safe BLE positioning when reachinng in order to facility safe weight distribution on BLE and base of support with focus on improving safety awareness and standing balance with task. Pt displayed F/F+ dynamic standing balance with no LOB noted. documented in this encounter Care Teams Business Office Specialist Relationship Specialty Start Date End Date Galina Evans MD [address] [facility] [address] [place] [address] PCP - General Family Medicine 03/08/25 documented as of this encounter
--- OUTSIDE RECORDS SUMMARY | 2025-04-08 13:27 | XMS_ITS | Encounter Summary ---
Author Organization [facility] Address [address] [place] [address] Phone Care Team Providers Care Pickers Material Handlers Name Role Phone Galina Evans MD Primary Care Provider Reason for Visit * Auth/Cert (Routine) Specialty Diagnoses / Procedures Referred By Contac t Referred To Contact Referral ID Status Reason Start Date Expiration Date Visits Re quested Visits Authorized [id number] Encounter Details Date Type Department Care Team (Late st Contact Info) Description 04/08/2025 12:00 PM CDT Home Care Visit [facility] [address] [place] [address] Farideh Ross RN [place] - WOUND [...] 04/11/2025 1:30 PM CDT Home Care Visit [address] [address] Perri Lin, FISCAL SPECIALIST 04/13/2025 1:00 AM CDT Home Care Visit [address] [address] Catrachita Alberts PT [place] 04/13/2025 1:00 AM CDT Home Care Visit [address] [address] Farideh Ross, RN [place] 04/14/2025 1:00 AM CDT Home Care Visit [address] [address] Vivian Holman OTA [place] 04/15/2025 1:00 AM CDT Home Care Visit [address] [address] Farideh Ross RN [place] 04/15/2025 2:00 AM CDT Home Care Visit [address] [address] Vivian Holman OTA [place] 04/18/2025 1:00 AM CDT Home Care Visit [address] [address] Farideh Ross, RN [place] 04/22/2025 1:00 AM CDT Home Care Visit [address] [address] Farideh Ross, RN [place] 04/27/2025 1:00 AM CDT Home Care Visit [address] [address] Farideh Ross, RN [place] 05/04/2025 1:00 AM CDT Home Care Visit [address] [address] Farideh Ross RN [place] 05/11/2025 1:00 AM CDT Home Care Visit [address] [address] Farideh Ross, DEVORAH CARDONA 05/18/2025 1:00 AM CDT Appointment [facility] [address] [place] [address] Farideh Ross, DEVORAH [place] documented as of this encounter Visit Diagnoses Not on filedocumented in this encounter Care Teams Pickers Material Handlers Relationship Specialty Start Date End Date Galina Evans MD [facility] [address] [place] [address] PCP - General Family Medicine 03/08/25 documented as of this encounter
--- OUTSIDE RECORDS SUMMARY | 2025-04-08 13:27 | XMS_ITS | Clinical Summary ---
Author Organization [facility] [employer] Address [address] [place] [address] Care Team Providers Care Mc Kay Machine Operator Name Role Phone Hector Rhodes MD Primary Care Provider [phone] Source Comments [facility],non-owned Affiliates and Associated Physician Practices is amultiple site organization consisting of ambulatory clinics and hospital sitesin [place], [place], [place] and [place]. This disclosure is being madepursuant to the Care Everywhere program and may not contain all information available regarding this patient. Last updated 18.[facility] [employer] Allergies Active Allergy Reactions Criticality Noted Date [...] (one) tablet by mouth at bedtime Active Rigby-3 Fatty Acids (FISH OIL) 1000 MG capsule [...] but was denied so patient discharged w/ [facility] and wheeled walker. Assessment & Plan (03/07/2025 [...] but was denied so patient discharged w/ [facility] and wheeled walker. Assessment & Plan (03/07/2025 [...] but was denied so patient discharged w/ [facility] and wheeled walker. Assessment & Plan (03/07/2025 [...] Team Description 03/09/2025 Telephone Transitional Care at [address] [address] Juana Castro, animal daycare provider 03/09/2025 Telephone Transitional Care at [address] [address] Juana Castro, animal daycare provider 03/09/2025 Telephone Transitional Care at [address] [address] Juana Castro, animal daycare provider 03/01/2025 5:45 PM CDT - 03/08/2025 2:07 PM CDT Hospital Encounter [facility] 8S ACUTE [address] [place] [address] Ganesh Charles, DO Desmond, MD Danya Bruce Hafiz Muhammad, MD Felgenhauer, Joshua, MD Smutz, Kellen J, DO Emergency Medicine Discharge Disposition: Home Health Care [facility] 03/01/2025 Travel from Last 3 Months Social [...] and heating? Not hard at all 03/02/2025 [facility] [place] [facility] Occupat ional Health - Occupational Stress [...] any time in the past 12 m [facility], were you homeless or living in a fci (including now)? No 03/02/2025 Sex and Gender [...] Management General On track( 019 9:32 AM [facility]) Ramu Celestin RN Note: Expected end date: [...] 4.0 - 10.7 x10E9/L 03/08/2025 9:17 AM [facility] RBC Count 4.83 4.30 - 5.80 x10E12/L 03/08/2025 9:17 AM [facility] Hemoglobin 12.0(L) 13.3 - 17.5 g/dL 03/08/2025 9:17 AM [facility] Hematocrit 36.0(L) 38.7 - 51.1 % 03/08/2025 9:17 AM [facility] MCV 74.5(L) 80.0 - 98.0 fL 03/08/2025 9:17 AM [facility] MCH 24.8(L) 26.7 - 33.6 pg 03/08/2025 9:17 AM [facility] MCHC 33.3 31.7 - 36.3 g/dL 03/08/2025 9:17 AM [facility] RDW-CV 15.2(H) 11.3 - 14.8 % 03/08/2025 9:17 AM [facility] Platelet Count 282 150 - 420 x10E9/L 03/08/2025 9:17 AM [facility] MPV 10.4 7.8 - 11.4 fL 03/08/2025 9:17 AM [facility] Blood BLOOD SPECIMEN / Unknown Lab Venipuncture / Unknown 03/08/2025 8:35 AM CDT 03/08/2025 8:57 AM CDT us Forrest Welch MD LAB - HEMATOLOGY ORDERABLE S Final Result [facility] [address] [place] [address], [facility] [phone] * (ABNORMAL) BASIC METABOLIC PANEL (CALCIUM TOTAL) (03/08/2025 8:35 AM CDT) Only the most recent of5 resultswithin the time period is included. BUN 12 7 - 26 mg/dL 03/08/2025 9:32 AM [facility] Creatinine 0.72 0.71 - 1.16 mg/dL 03/08/2025 9:32 AM [facility] Sodium 137 136 - 145 mmol/L 03/08/2025 9:32 AM [facility] Potassium 3.2(L) 3.5 - 4.5 mmol/L 03/08/2025 9:32 AM [facility] Chloride 111(H) 98 - 107 mmol/L 03/08/2025 9:32 AM [facility] CO2 23 22 - 29 mmol/L 03/08/2025 9:32 AM [facility] Glucose 150(H) 70 - 99 mg/dL 03/08/2025 9:32 AM [facility] Calcium 8.5 8.4 - 10.2 mg/dL 03/08/2025 9:32 AM [facility] Anion Gap 3(L) 6 - 16 03/08/2025 9:32 AM [facility] BUN/Creatinine Ratio 17 7 - 23 03/08/2025 9:32 AM [facility] Osmolality Calculated 287 275 - 295 mOsm/kg 03/08/2025 9:32 AM [facility] eGFR by CKD-EPI >90 >=90 mL/min/1.7 3 m2 03/08/2025 9:32 AM [facility] Blood BLOOD SPECIMEN / Unknown Lab Venipuncture / Unknown 03/08/2025 8:35 AM CDT 03/08/2025 8:57 AM CDT Narrative [facility] - 03/08/2025 9:32 AM CDT Estimated Glomerular Filtration Rate (eGFR) calculated using the CKD-EPI Creatinine Equation (2020), per the National Kidney Foundation and [place] Society of Nephrology recommendations. Forrest Welch MD LAB - CHEMISTRY ORDERABLES Final Result Performing Organization Address City/[facility]/ZIP Co de Phone Number [address] [address], [facility] [phone] * (ABNORMAL) PHOSPHORUS BLOOD (03/08/2025 8:35 AM CDT) Only the most recent of5 resultswithin the time period is included. Phosphorus 2.4(L) 2.8 - 5.1 mg/dL 03/08/2025 9:32 AM CDT [facility] Blood BLOOD SPECIMEN / Unknown Lab Venipuncture / Unknown 03/08/2025 8:35 AM CDT 03/08/2025 8:57 AM CDT Forrest Welch MD LAB - CHEMISTRY ORDERABLES Final Result Performing Organization Address City/[facility]/ZIP Co de Phone Number [address] [address], [facility] [phone] * MAGNESIUM BLOOD (03/08/2025 8:35 AM CDT) Only the most recent of6 resultswithin the time period is included. Magnesium 2.1 1.6 - 2.6 mg/dL 03/08/2025 9:32 AM CDT [facility] Blood BLOOD SPECIMEN / Unknown Lab Venipuncture / Unknown 03/08/2025 8:35 AM CDT 03/08/2025 8:57 AM CDT Forrest Welch MD LAB - CHEMISTRY ORDERABLES Final Result Performing Organization Address City/[facility]/ZIP Co de Phone Number [address] [address], [place] [phone] * CARDIAC EKG ORDER (03/07/2025 11:01 AM CDT) Narrative 03/07/2025 11:01 AM CDT Ordered by an unspecified provider. us Scanned Document CARDIAC SERVICES ORDERABLES Fin al Result * VANCOMYCIN LEVEL TROUGH (03/05/2025 8:45 PM CDT) Only the most recent of2 resultswithin the time period is included. Vancomycin Trough 16.3 10.0 - 20.0 ug/mL 03/05/2025 10:10 PM CDT [facility] Blood BLOOD SPECIMEN / Unknown Venipuncture / Unknown 03/05/2025 8:45 PM CDT 03/05/2025 8:50 PM CDT Narrative [facility] - 03/05/2025 10:10 PM CDT See institution protocol. us Forrest Welch MD LAB - CHEMISTRY ORDERABLES Final Result [address] [address], [place] [phone] * GLUCOSE - POINT OF CARE (03/03/2025 4:20 PM CDT) Only the most recent of3 resultswithin the time period is included. Glucose WB/POC 96 70 - 99 mg/dL 03/03/2025 4:25 PM CDT [facility] Specimen Type Arterial/C apillary 03/03/2025 4:25 PM CDT [facility] Blood BLOOD SPECIMEN / Unknown 03/03/2025 4:20 PM CDT 03/03/2025 4:25 PM CDT Forrest Welch MD LAB - POINT OF CARE ORDERA BLES Final Result [address] [address], [place] [phone] * US Abdomen Ltd W Comp Doppler [...] report was drafted by Iglesia Peter MD (market president) 03/03/2025 1:18 PM. I, Jeffrey Brock have personally reviewed and interpreted this examination/study. > Interpreting Provider: Jeffrey Brock on 03/03/2025 2:55 PM Narrative 03/03/2025 2:55 PM CDT PROCEDURE: US ABDOMEN LTD W COMP DOPPLER, DATE/TIME OF EXAM: 03/03/2025 12:01 PM, LOCATION [facility] INDICATION: R41.82: Altered mental status, unspecified altered [...] DATE/TIME OF EXAM: 03/03/2025 12:01 PM, LOCATION [facility] INDICATION: R41.82: Altered mental status, unspecified altered [...] report was drafted by Iglesia Peter MD (market president) 03/03/2025 1:18 PM. Jeffrey Rosales have [...] report was drafted by Iglesia Peter MD (market president) 03/02/2025 12:12 PM. Austin Rosales MD have personally reviewed and interpreted this examination/study. > Interpreting Provider: Austin Enriquez MD on 03/02/2025 6:08 PM Narrative 03/02/2025 6:08 PM CDT PROCEDURE: US SCROTUM W DOPPLER, DATE/TIME OF EXAM: 03/02/2025 10:41 AM, LOCATION [facility] INDICATION: R41.82: Altered mental status, unspecified altered [...] DOPPLER, DATE/TIME OF EXAM: 03/02/2025 10:41AM, LOCATION [facility] INDICATION: R41.82: Altered mental status, unspecified altered [...] report was drafted by Iglesia Peter MD (market president) 03/02/2025 12:12 PM. IAustin MD have [...] [facility] Creatinine 1.01 0.71 - 1.16 mg/dL 03/02/2025 6:10 AM CDT [facility] Sodium 135(L) 136 - 145 mmol/L 03/02/2025 6:10 AM [facility] Potassium 3.8 3.5 - 4.5 mmol/L 03/02/2025 6:10 AM [facility] Chloride 110(H) 98 - 107 mmol/L 03/02/2025 6:10 AM [facility] CO2 17(L) 22 - 29 mmol/L 03/02/2025 6:10 AM [facility] Glucose 100(H) 70 - 99 mg/dL 03/02/2025 6:10 AM [facility] Calcium 8.2(L) 8.4 - 10.2 mg/dL 03/02/2025 6:10 AM [facility] Protein Total 6.7 6.0 - 8.3 g/dL 03/02/2025 6:10 AM [facility] Albumin 2.7(L) 3.4 - 5.0 g/dL 03/02/2025 6:10 AM [facility] Bilirubin Total 1.5(H) 0.2 - 1.2 mg/dL 03/02/2025 6:10 AM [facility] Alkaline Phosphatase 84 40 - 150 U/L 03/02/2025 6:10 AM [facility] ALT 25 5 - 55 U/L 03/02/2025 6:10 AM [facility] AST 44(H) 5 - 34 U/L 03/02/2025 6:10 AM [facility] Anion Gap 8 6 - 16 03/02/2025 6:10 AM [facility] BUN/Creatinine Ratio 12 7 - 23 03/02/2025 6:10 AM [facility] Osmolality Calculated 280 275 - 295 mOsm/kg 03/02/2025 6:10 AM [facility] Albumin/Globulin Ratio 0.7(L) 1.1 - 2.3 03/02/2025 6:10 AM [facility] eGFR by CKD-EPI 80(L) >=90 mL/min/1.7 3 m2 03/02/2025 6:10 AM [facility] Blood BLOOD SPECIMEN / Unknown Venipuncture / Unknown 03/02/2025 4:27 AM CDT 03/02/2025 5:41 AM CDT [facility] - 03/02/2025 6:10 AM CDT Estimated Glomerular Filtration Rate (eGFR) calculated using the CKD-EPI Creatinine Equation (2020), per the National Kidney Foundation and [place] Society of Nephrology recommendations. Roger Hagan MD LAB - CHEMISTRY ORDERAB LES Final Result [facility] [address] [place] [address], [facility] [phone] * (ABNORMAL) BLOOD GASES VICTOR M + COOX PANEL (03/02/2025 12:37 AM CDT) pH Venous 7.39 7.32 - 7.42 pH 03/02/2025 12:43 AM [facility] pO2 Venous 65(H) 35 - 40 mmHg 03/02/2025 12:43 AM [facility] pCO2 Venous 29(L) 40 - 50 mmHg 03/02/2025 12:43 AM [facility] HCO3 Venous 17.6(L) 20 - 30 mmol/L 03/02/2025 12:43 AM [facility] Base Excess Venous -6.2(L) -2.0 - 2.0 mmol/L 03/02/2025 12:43 AM [facility] Oxyhemoglobin Venous 91.5 % 02/13 12:43 AM [facility] Deoxyhemoglobin (HHB) Venous % 5.3 % 03/02/2025 12:43 AM [facility] Methemoglobin <0.8 0.0 - 2.0 % 03/02/2025 12:43 AM [facility] Carboxyhemoglobin 2.5(H) 0.0 - 2.0 % 2024 12:43 AM [facility] O2 Content Venous 15.2 Interpret within clinical context ml/dL 03/02/2025 12:43 AM [facility] Hemoglobin by COOX 11.8(L) 12.0 - 17.6 g/dL 03/02/2025 12:43 AM [facility] O2 Saturation Venous 95 >=70 % 02/13 12:43 AM [facility] FI O2 Mixed Venous 21.0 % 2024 12:43 AM [facility] Blood BLOOD SPECIMEN / Unknown Venipuncture / Unknown 03/02/2025 12:37 AM CDT 03/02/2025 12:40 AM CDT Narrative [facility] - 03/02/2025 12:43 AM T Carboxyhemoglobin Normal Concentration: Non-smokers: 0-2%; Smokers: 0-9%; Toxic: >20% us Roger Hagan MD LAB - BLOOD GASES ORDER KATYA Final Result Performing Organization Address City/State/[facility] Co de Phone Number [facility] [address] [place] [address], [facility] [phone] * URINE DRUG SCREEN IMMUNOASSAY (03/02/2025 12:37 AM [facility]) [facility] Amphetamines Screen Urine Negative Negative: < 1000 ng/mL 03/02/2025 12:59 AM [facility] Barbiturates Screen Urine Negative Negative: < 200 ng/mL 03/02/2025 12:59 AM [facility] Benzodiazepine Screen Urine Negative Negative: < 200 ng/mL 03/02/2025 12:59 AM [facility] Opiates Urine Negative Negative: < 300 ng/mL 03/02/2025 12:59 AM [facility] Cocaine Metabolites Urine Negative Negative: < 300 ng/mL 03/02/2025 12:59 AM [facility] Phencyclidine Screen Urine Negative Negative: < 25 ng/ml 03/02/2025 12:59 AM [facility] Cannabinoids Screen Urine Negative Negative: <50 ng/mL 03/02/2025 12:59 AM [facility] Methadone Screen Urine Negative Negative: < 300 ng/mL 03/02/2025 12:59 AM [facility] Fentanyl Screen Urine Negative Negative: <1.5 ng/mL 03/02/2025 12:59 AM [facility] Urine URINE / Unknown Collection / Unknown 03/02/2025 12:37 AM CDT 03/02/2025 12:40 AM CDT Narrative [facility] - 03/02/2025 12:59 AM CDT The Urine Toxicology Screening Panel does not screen for Propoxyphene, Meprobamate, Carisoprodol, Trazodone, xhxx-smj-kcqqycz medications and/or volatiles (Acetone, Isopropanol, Methanol or Ethylene Glycol). Ethanol, Salicylate, Acetaminophen, Tricyclic Antidepressants and several therapeutic drugs may be individually assayed in serum or plasma specimen. Toxicology testing by the [facility] is an aid to medical diagnosis and treatment of patients. No documented chain of custody was maintained. Results are intended to be used for clinical purposes only. us Roger Hagan MD LAB - URINE CHEMISTRY O RDERABLES Final Result Performing Organization Address [facility]/ZIP Co de Phone Number [address] [address], [facility] [phone] * LACTIC ACID BLOOD (03/02/2025 12:37 AM CDT) [facility] Lactic Acid-Stat 1.1 <=2.0 mmol/L 03/02/2025 1:08 AM CDT [facility] Blood BLOOD SPECIMEN / Unknown Venipuncture / Unknown 03/02/2025 12:37 AM CDT 03/02/2025 12:42 AM CDT us Roger Hagan MD LAB - CHEMISTRY ORDERAB LES Final Result Performing Organization Address [facility]/ZIP Co de Phone Number [address] [address], [place] [phone] * EKG 12-LEAD (03/02/2025 12:28 AM CDT) [...] (Bezet) 452 ms [facility] MUSE Calculated P [place] 63 degrees [facility] MUSE Calculated R [place] -20 degrees [facility] MUSE Calculated T [place] -23 degrees [facility] MUSE Interpretation EKG NORMAL SINUS RHYTHM POSSIBLE LEFT ATRIAL ENLARGEMENT NONSPECIFIC ST AND T WAVE ABNORMALITY ABNORMAL ECG NO PREVIOUS ECGS AVAILABLE Confirmed by ELIZABETH LILLY DO ([id number]) on 03/03/2025 1:32:24 PM [facility] MUSE 03/02/2025 [...] DATE/TIME OF EXAM: 03/02/2025 12:10 AM, LOCATION [facility] INDICATION: R41.82: Altered mental status, unspecified altered [...] abnormality. > Dictated by Edouard MUHAMMAD, FRCR (logistics vice president). I, Do Patterson MD have personally reviewed and interpreted this examination/study. > Interpreting Provider: oD Patterson MD on 03/03/2025 3:01 PM Procedure Note Do Patterson MD - 03/03/2025 PROCEDURE: XR CHEST 1VW PORTABLE, DATE/TIME OF EXAM: 03/02/2025 12:10AM, LOCATION [facility] INDICATION: R41.82: Altered mental status, unspecified altered [...] acute bony abnormality. > Dictated by Edouard [facility] (logistics vice president). I, Do Patterson MD have personally reviewed and interpreted this examination/study. > Interpreting Provider: Do Patterson MD on 03/03/2025 3:01 PM Roger Hagan MD DIAGNOSTIC IMAGING [facility] Final Result * (ABNORMAL) URINALYSIS W/MICROSCOPIC NO CULTURE (03/01/2025 10:21 PM CDT) Color UA Yellow Yellow, Straw 03/01/2025 10:55 PM [facility] Clarity UA Clear Clear 03/01/2025 10:55 PM [facility] Glucose UA Normal Normal 03/01/2025 10:55 PM [facility] Bilirubin UA Negative Negative 03/01/2025 10:55 PM [facility] Ketone UA Negative Negative 03/01/2025 10:55 PM [facility] Specific [place] UA >1.050(H) 1.005 - 1.030 03/01/2025 10:55 PM [facility] Blood UA Negative Negative 03/01/2025 10:55 PM [facility] pH UA 5.5 5.0 - 8.0 03/01/2025 10:55 PM [facility] Protein UA Negative Negative 03/01/2025 10:55 PM [facility] Urobilinogen UA 6.0(A) Normal mg/dL 025 10:55 PM [facility] Nitrite UA Negative Negative 03/01/2025 10:55 PM [facility] Leukocyte Esterase UA Negative Negative 03/01/2025 10:55 PM [facility] RBC UA None Seen 0 - 5 # /hpf 03/01/2025 10:55 PM CDT [facility] WBC UA 0-5 0 - 5 # /hpf 03/01/2025 10:55 PM CDT [facility] Bacteria UA None Seen None Seen 03/01/2025 10:55 PM CDT [facility] Squamous Epithelial Cells 0-2 0 - 5 /hpf 03/01/2025 10:55 PM CDT [facility] Mucus UA 1+ /LPF 03/01/2025 10:55 PM CDT [facility] Urine URINE SPECIMEN OBTAINED BY CLEAN CATCH PROCEDURE / Unknown Collection / Unknown 03/01/2025 10:21 PM CDT 03/01/2025 10:25 PM CDT Yehuda Gale MD LAB - URINALYSIS ORDERABLES Angie schaefer Result [address] [address], [facility] [phone] * CT Abdomen Pelvis W Contrast (03/01/2025 [...] > Dictated by Miguel Angel Chow MD (logistics vice president). IAustin MD have personally reviewed and interpreted this examination/study. > Interpreting Provider: Austin Enriquez MD on 03/02/2025 8:32 AM Narrative 03/02/2025 8:32 AM CDT PROCEDURE: CT ABDOMEN PELVIS W CONTRAST, DATE/TIME OF EXAM: 03/01/2025 9:14 PM, LOCATION [facility] INDICATION: R41.82: Altered mental status, unspecified altered [...] DATE/TIME OF EXAM: 03/01/2025 9:14 PM, LOCATION [facility] INDICATION: R41.82: Altered mental status, unspecified altered [...] > Dictated by Miguel Angel Chow MD (logistics vice president). I, Austin Enriquez MD have personally reviewed and interpreted this examination/study. > Interpreting Provider: Austin Enriquez MD on 03/02/2025 8:32 [address] ORDERABLES Final Result * TROPONIN-I HIGH SENSITIVE REFLEX 1HOUR (03/01/2025 7:22 PM CDT) Troponin I High Sensitive 4 <=35 ng/L 03/01/2025 8:02 PM CDT [facility] Delta Troponin I HS 0 <6 ng/L 03/01/2025 8:02 PM CDT [facility] Blood BLOOD SPECIMEN / Unknown Venipuncture / Unknown 03/01/2025 7:22 PM CDT 03/01/2025 7:22 PM CDT Yehuda Gale MD LAB - CHEMISTRY ORDERABLES Final Result [facility] [address] [place] [address], [facility] [phone] * XR Chest 1Vw (03/01/2025 6:59 PM CDT) Anatomical Region Laterality Modality Chest Digital Radiogra phy 03/01/2025 7:47 PM CDT Narrative 03/02/2025 11:39 AM CDT PROCEDURE: XR CHEST 1VW, DATE/TIME OF EXAM: 03/01/2025 6:59 PM, LOCATION [facility] INDICATION: R41.82: Altered mental status, unspecified altered [...] intact. Report dictated by Thomas Asif MD, (Radio Repair Teacher). IBeth MD have personally reviewed and interpreted this examination/study. > Interpreting Provider: Beth Gorman MD on 03/02/2025 11:39 AM Procedure Note Beth Gorman MD - 03/02/2025 PROCEDURE: XR CHEST 1VW, DATE/TIME OF EXAM: 03/01/2025 6:59 PM, LOCATION [facility] INDICATION: R41.82: Altered mental status, unspecified altered [...] intact. Report dictated by Thomas Asif MD, (Radio Repair Teacher). Beth Rosales MD have personally reviewed and [...] infarction. > Dictated by Thomas Asif MD, (logistics vice president). Destini Rosales MD have personally reviewed and interpreted this examination/study. > Interpreting Provider: Destini Mar MD on 03/01/2025 11:46 PM Narrative 03/01/2025 11:46 PM CDT PROCEDURE: CT HEAD WO CONTRAST, DATE/TIME OF EXAM: 03/01/2025 6:47 PM, LOCATION [facility] INDICATION: R41.82: Altered mental status, unspecified altered [...] DATE/TIME OF EXAM: 03/01/2025 6:47 PM, LOCATION [facility] INDICATION: R41.82: Altered mental status, unspecified altered [...] infarction. > Dictated by Thomas Asif MD, (logistics vice president). Destini Rosales MD have personally reviewed and interpretedthis examination/study. > Interpreting Provider: Destini Mar MD on 03/01/2025 11:[address] ORDERABLES Final Result * CULTURE BLOOD (03/01/2025 6:12 PM CDT) Only the most recent of2 resultswithin the time period is included. Pathologist [facility] Culture No growth day 5 DELIA 03/07/2025 12:01 AM CDT [facility] Blood PERIPHERAL BLOOD / Unknown Venipuncture / Unknown 03/01/2025 6:12 PM CDT 03/01/2025 6:29 PM CDT Yehuda Gale MD LAB - MICROBIOLOGY ORDERABLES Fi nal Result [facility] [address] [place] [address], [facility] [phone] * (ABNORMAL) PT-INR [facility] (03/01/2025 6:00 PM CDT) Pathologist [facility] PT 18.5(H) 12.1 - 14.8 Seconds 03/01/2025 7:00 PM CDT [facility] INR 1.6 See Comment 03/01/2025 7:00 PM CDT [facility] Comment:The suggested therap eutic range for standard coumadin (warfarin) therapy is an INR of 2.0-3.0. For high-risk patients (Mechanical Mitral Valve Prosthesis, etc.), the suggested prophylactic therapeutic range is an INR of 2.5-3.5. Blood BLOOD SPECIMEN / Unknown Venipuncture / Unknown 03/01/2025 6:00 PM CDT 03/01/2025 6:29 PM CDT Yehuda Gale MD LAB - COAGULATION ORDERABLES Fin al Result [facility] [address] [place] [address], [place] [phone] * LACTIC ACID BLOOD REFLEX TO REPEAT (03/01/2025 6:00 PM CDT) Pathologist [facility] Lactic Acid-Stat 1.6 <=2.0 mmol/L 03/01/2025 7:04 PM CDT [facility] Blood BLOOD SPECIMEN / Unknown Venipuncture / Unknown 03/01/2025 6:00 PM CDT 03/01/2025 6:30 PM CDT us Yehuda Gale MD LAB - CHEMISTRY ORDERABLES Final Result Performing Organization Address [facility]/ZIP Co de Phone Number [address] [address], [facility] [phone] * TROPONIN-I HIGH SENSITIVE BASELINE + 1HR (03/01/2025 6:00 PM CDT) Pathologist [facility] Troponin I High Sensitive 4 <=35 ng/L 03/01/2025 7:12 PM T [facility] Blood BLOOD SPECIMEN / Unknown Venipuncture / Unknown 03/01/2025 6:00 PM CDT 03/01/2025 6:30 PM CDT Yehuda Gale MD LAB - CHEMISTRY ORDERABLES Final Result Performing Organization Address [facility]/ZIP Co de Phone Number [address] [address], [facility] [phone] * (ABNORMAL) CBC W AUTO DIFFERENTIAL (03/01/2025 6:00 PM CDT) [facility] WBC 14.8(H) 4.0 - 10.7 x10E9/L 03/01/2025 7:06 PM [facility] RBC Count 5.01 4.30 - 5.80 x10E12/L 03/01/2025 7:06 PM [facility] Hemoglobin 12.7(L) 13.3 - 17.5 g/dL 03/01/2025 7:06 PM [facility] Hematocrit 37.1(L) 38.7 - 51.1 % 03/01/2025 7:06 PM [facility] MCV 74.1(L) 80.0 - 98.0 fL 03/01/2025 7:06 PM [facility] MCH 25.3(L) 26.7 - 33.6 pg 03/01/2025 7:06 PM [facility] MCHC 34.2 31.7 - 36.3 g/dL 03/01/2025 7:06 PM [facility] RDW-CV 14.4 11.3 - 14.8 % 03/01/2025 7:06 PM [facility] Platelet Count 142(L) 150 - 420 x10E9/L 03/01/2025 7:06 PM [facility] MPV 9.9 7.8 - 11.4 fL 03/01/2025 7:06 PM [facility] Neutrophil % 89.2(H) 41.0 - 74.0 % 03/01/2025 7:06 PM [facility] Lymphocyte % 2.4(L) 17.0 - 47.0 % 03/01/2025 7:06 PM [facility] Monocyte % 6.6 3.0 - 11.0 % 03/01/2025 7:06 PM [facility] Eosinophil % 0.5 0.0 - 7.0 % 03/01/2025 7:06 PM [facility] Basophil % 0.1 0.0 - 1.6 % 03/01/2025 7:06 PM [facility] Immature Granulocytes % 1.2(H) 0.0 - 1.0 % 03/01/2025 7:06 PM [facility] Neutrophil Absolute 13.16(H) 1.60 - 7.50 x10E9/L 03/01/2025 7:06 PM [facility] Lymphocyte Absolute 0.36(L) 1.00 - 4.40 x10E9/L 03/01/2025 7:06 PM [facility] Monocyte Absolute 0.98 0.15 - 1.00 x10E9/L 03/01/2025 7:06 PM [facility] Eosinophil Absolute 0.08 0.00 - 0.60 x10E9/L 03/01/2025 7:06 PM [facility] Basophil Absolute 0.02 0.00 - 0.13 x10E9/L 03/01/2025 7:06 PM [facility] Blood BLOOD SPECIMEN / Unknown Venipuncture / Unknown 03/01/2025 6:00 PM CDT 03/01/2025 6:30 PM CDT Yehuda Gale MD LAB - HEMATOLOGY ORDERABLES Angie l Result [address] [address], [place] [phone] * AMMONIA (03/01/2025 6:00 PM CDT) Ammonia 26 <=72 umol/L 03/01/2025 6:42 PM CDT [facility] Blood BLOOD SPECIMEN / Unknown Venipuncture / Unknown 03/01/2025 6:00 PM CDT 03/01/2025 6:28 PM CDT Yehuda Gale MD LAB - CHEMISTRY ORDERABLES Final Result Performing Organization Address City/[facility]/ZIP Co de Phone Number [address] [address], [place] [phone] from Last 3 Months Insurance SELF PAY NO INSURANCE Member Subscriber Plan / Payer (Ef fective for All Dates) Name:Juan Manuel Avalos Jr. Member ID:Not on file Relation to Subscriber:Self Name:JUAN MANUEL AVALOS Subscriber ID:Not on file Payer ID:Not on file Group ID:Not on file Type:Self Pay Address: [place], [place] [employer] [facility] Care Address: [address] [address] MEDICARE Advance Directives * Full Code (Latest Code Status on File) Date Activated Date Inactivated Comments 03/01/2025 11:50 PM 03/08/2025 3:17 PM Care Teams Mc Kay Machine Operator Relationship Specialty Start Date End Date Hector Rhodes MD PCP - General Internal Medicine 12/17/18
[2025-04-08 13:31] VITALS: BP 123/82; PULSE 65; RESP 17; TEMP 36.3; O2SAT 98
--- NOTE | 2025-04-08 13:34 | ED.MALEGU ---
HPI - Male Genitourinary General Chief complaint: Urogenital-Male <Anjali Lazaro APRN - Last Filed: 04/08/25 13:35> Stated complaint: difficulty voiding <Anjali Lazaro APRN - Last Filed: 04/08/25 13:35> Time Seen by Provider: 04/08/25 13:30 <Anjali Lazaro APRN - Last Filed: 04/08/25 13:35> Focused HPI: Patient is a 69-year-old male who presents to the ER with concerns of urinary retention. He reports he was at his urologist's office yesterday and had a urinary catheter removed. Patient reports he had originally a catheter placed due to a hydrocele. He reports he has been drinking lots of water but has continued to have decreased urine output. Patient denies any abdominal pain, blood in his urine, or blood clots in his urine. He endorses a history of high blood pressure, gout, and hyperlipidemia. GENERAL: Well-appearing, well-nourished, and in no acute distress. HEAD: Normocephalic, atraumatic. CHEST: Clear to auscultation. ?No respiratory distress. HEART: Regular rate and rhythm.? NEURO: ?Alert and oriented x3. Patient screened in triage and initial orders placed.? ?Additional care and disposition to be based upon?diagnostic testing and treatment. <Anjali Lazaro APRN - Last Filed: 04/08/25 13:35> Related Data Home medications: Home Medications ?Medication ?Instructions ?Recorded ?Confirmed ?Last Taken ?Type omega 4-vnn-bvu-fish oil 1,000 mg 1 cap PO DAILY 03/10/25 03/24/25 Unknown History (120 mg-180 mg) capsule (Fish Oil) <Anjali Lazaro APRN - Last Filed: 04/08/25 13:35> Allergies/Adverse reactions: Allergies Allergy/AdvReac Type Severity Reaction Status Date / Time lisinopril AdvReac Intermediate Cough Verified 04/08/25 13:25 <Anjali Lazaro APRN - Last Filed: 04/08/25 13:35> Review of Systems Review of Systems: All systems reviewed & are unremarkable except as noted in HPI and below <Art Cai MD - Last Filed: 04/08/25 18:19> [facility] Past Medical History Medical History: Medical History Sepsis with critical illness myopathy (~02/2025) Urinary retention Alcohol use disorder Dehiscence of operative wound Elevated ferritin Fatty liver Hyperlipidemia Essential (primary) hypertension <Anjali Lazaro APRN - Last Filed: 04/08/25 13:35> Surgical History Surgical History: Surgical History History of umbilical hernia repair (~1976) History of ankle surgery (~2018) Left fracture ORIF <Anjali Lazaro APRN - Last Filed: 04/08/25 13:35> Family History Family History: Family History Father Diabetes mellitus Hypertension Sibling Heart disease Hypertension <Anjali Lazaro APRN - Last Filed: 04/08/25 13:35> Social History Social History: Social History Social History: Caffeine-green tea,soda Smoking status: Never smoker Alcohol intake: former Drinks per week: 3 Alcohol use details: drinks daily Substance use: never Substance use type: does not use Last use: 03/06/25 Do You Feel Safe in your Home?: Yes Lack of Transportation: No Lack of Food: Never True Current Housing: I Have Housing Concerned About Future Housing: No Difficulty Paying Gas/Electric Bills: No Difficulty Paying for Meds: No Currently Unemployed: No Education: High School Diploma/GED Difficulty w/ Childcare or Family Care: No Living arrangements: alone Occupation/Education: retired Gender identity (if verbalized by the patient): Male Spiritual care concerns: No Agree to blood products: Yes <Anjali Lazaro APRN - Last Filed: 04/08/25 13:35> Exam Narrative: APPEARANCE: Well appearing, no pain, no distress, well-nourished. HEAD: normocephalic, atraumatic. EYES: PERRLA/EOMI, conjunctivae clear. NOSE: Normal no drainage EARS:TMS clear with good light reflex. THROAT: Pharynx clear, no exudate. NECK: Supple. No adenopathy, no masses. RESPIRATORY: Airway patent, respirations nonlabored. Clear to auscultation bilaterally, no rales, rhonchi, wheezing. CARDIOVASCULAR: Regular rate and rhythm without murmurs rubs or gallops. ABDOMINAL: Soft, nontender, nondistended, normal bowel sounds MUSCULOSKELETAL: Moves all extremities. Strength/ROM intact, No edema, No calf tenderness. NEURO: Alert. Cranial nerves II through XII intact. G grossly intact SKIN: Warm, dry. Normal Color <Art Cai MD - Last Filed: 04/08/25 18:19> Course Vital Signs Vital signs: Vital Signs Temperature 97.3 F L 04/08/25 13:31 Pulse Rate 65 04/08/25 13:31 Respiratory Rate 17 04/08/25 13:31 Blood Pressure 123/82 04/08/25 13:31 Pulse Oximetry 98 04/08/25 13:31 Oxygen Delivery Room Air 04/08/25 13:31 Temperature 97.3 F L 04/08/25 13:31 Pulse Rate 65 04/08/25 13:31 Respiratory Rate 17 04/08/25 13:31 Blood Pressure 123/82 04/08/25 13:31 Pulse Oximetry 98 04/08/25 13:31 Oxygen Delivery Room Air 04/08/25 13:31 <Anjali Lazaro APRN - Last Filed: 04/08/25 13:35> Vital Signs Temperature 97.3 F L 04/08/25 13:31 Pulse Rate 65 04/08/25 13:31 Respiratory Rate 17 04/08/25 13:31 Blood Pressure 123/82 04/08/25 13:31 Pulse Oximetry 98 04/08/25 13:31 Oxygen Delivery Room Air 04/08/25 13:31 Temperature 97.3 F L 04/08/25 13:31 Pulse Rate 65 04/08/25 13:31 Respiratory Rate 17 04/08/25 13:31 Blood Pressure 123/82 04/08/25 13:31 Pulse Oximetry 98 04/08/25 13:31 Oxygen Delivery Room Air 04/08/25 13:31 <Art Cai MD - Last Filed: 04/08/25 18:19> MDM - Male Genitourinary MDM Narrative Medical decision making narrative: 69-year-old male presents emergency department for evaluation for urinary retention. Patient did have a [place] catheter removed yesterday. Patient did as having approximately 300 mL postvoid residual urine. UA is concerning for urinary tract infection. Patient is taking Bactrim and Augmentin. Patient was she having difficulty urinating at home. Patient was willing to have a Fair[place] catheter placed again. Patient will continue have close outpatient follow-up with Urology. <Art Cai MD - Last Filed: 04/08/25 18:19> Differential Diagnosis Differential diagnosis: Likely urinary tract infection, urethritis, prostatitis, acute retention of urine and other <Art Cai MD - Last Filed: 04/08/25 18:19> Lab Data Attestation: I reviewed the patient's lab results. <Art Cai MD - Last Filed: 04/08/25 18:19> Labs: Lab Results 04/08/25 Range/Units 14:38 Urine Color Yellow (Yellow) Urine Appearance Clear (Clear) Urine pH 5.5 (5.0-9.0) Ur Specific [place] 1.016 (1.001-1.035) Urine Protein Negative (Negative) mg/dL Urine Glucose (UA) Negative (Negative) mg/dL Urine Ketones Negative (Negative) mg/dL Ur Blood (Man) Non-hemolyzed trace (Negative) Urine Nitrate Negative (Negative) Urine Bilirubin Negative (Negative) Urine Urobilinogen 0.2 (<2.0) mg/dL Leukocyte Esterase Rfl 2+ H (Negative) GLENNA/UL Urine RBC 3-5 H (0-2) /hpf Urine WBC 21-50 H (0-3) /hpf Ur Squamous Epith Cells None seen (Few) /hpf Urine Bacteria None seen /hpf Urine Casts 0-2 <Anjali Lazaro APRN - Last Filed: 04/08/25 13:35> Lab Results 04/08/25 Range/Units 14:38 Urine Color Yellow (Yellow) Urine Appearance Clear (Clear) Urine pH 5.5 (5.0-9.0) Ur Specific [place] 1.016 (1.001-1.035) Urine Protein Negative (Negative) mg/dL Urine Glucose (UA) Negative (Negative) mg/dL Urine Ketones Negative (Negative) mg/dL Ur Blood (Man) Non-hemolyzed trace (Negative) Urine Nitrate Negative (Negative) Urine Bilirubin Negative (Negative) Urine Urobilinogen 0.2 (<2.0) mg/dL Leukocyte Esterase Rfl 2+ H (Negative) [place]/UL Urine RBC 3-5 H (0-2) /hpf Urine WBC 21-50 H (0-3) /hpf Ur Squamous Epith Cells None seen (Few) /hpf Urine Bacteria None seen /hpf Urine Casts 0-2 <Art Cai MD - Last Filed: 04/08/25 18:19> Discharge Plan Discharge Clinical Impression: Urinary retention, Abnormal urinalysis <Anjali Lazaro APRN - Last Filed: 04/08/25 13:35> Patient Disposition: Home <Anajli Lazaro APRN - Last Filed: 04/08/25 13:35> Condition: Stable <Anjali Lazaro APRN - Last Filed: 04/08/25 13:35> Instructions: Antibiotic Form, Urinary Retention in Men (ED), Urinary Tract Infection in Men (ED), Fairbanks Catheter Placement and Care (ED) <Anjali Lazaro APRN - Last Filed: 04/08/25 13:35> Additional Instructions: Fair[place] catheter care as directed. Continue the Bactrim and Augmentin. Have close follow-up with Dr. Miller. If you have any worsening symptoms then please call or return to the emergency department. <Anjali Lazaro APRN - Last Filed: 04/08/25 13:35> Patient Language: [place] Islander <Anjali Lazaro APRN - Last Filed: 04/08/25 13:35> Prescriptions: No Action Ultimate Shantal Probiotic 30 billion cell capsule,delayed release(DR/EC) 1 cap PO DAILY Qty: 90 0RF omega 4-kve-qai-fish oil [Fish Oil] 1,000 (120-180) mg capsule 1 cap PO DAILY atorvastatin 40 mg tablet 40 mg PO HS Qty: 30 0RF atenolol 25 mg tablet 25 mg PO DAILY Qty: 30 0RF amlodipine 5 mg tablet 5 mg PO DAILY Qty: 30 0RF sulfamethoxazole-trimethoprim [Bactrim DS] 800-160 mg tablet 1 tablet PO Q12H Qty: 18 0RF Rx Instructions: x21 days allopurinol 300 mg tablet 300 mg PO DAILY Qty: 30 0RF amoxicillin-pot clavulanate 875-125 mg tablet 1 tablet PO BIDWM Qty: 19 0RF Rx Instructions: x21 days <Anjali Lazaro APRN - Last Filed: 04/08/25 13:35> Follow-up/Referrals: Dalton Miller MD [Physician] - Naina Evans MD [Primary Care Provider] - <Anjali Lazaro APRN - Last Filed: 04/08/25 13:35>
[2025-04-08 14:50] LABS: Add Urine Microscopic? YES; Appearance Urine Clear (Clear); Glucose Urine UA Negative (Negative); Leukocyte Esterase Ur 2+ LEU/UL (Negative); Nitrate Urine Negative (Negative); Non Pathogenic Casts 0-2; Specific Grav Ur 1.016 (1.001-1.035)
[2025-04-08 16:30] VITALS: BP 130/71; PULSE 53; RESP 18; O2SAT 100
--- OUTSIDE RECORDS SUMMARY | 2025-04-08 16:49 | XMS_ITS | Encounter Summary ---
Author Organization [facility] Address [address] [place] [address] Phone Care Team Providers Care Quality Checker Name Role Phone Galina Evans MD Primary Care Provider Reason for Visit * Auth/Cert (Routine) Specialty Diagnoses / Procedures Referred By Contac t Referred To Contact Referral ID Status Reason Start Date Expiration Date Visits Re quested Visits Authorized [id number] Encounter Details Date Type Department Care Team (Late st Contact Info) Description 04/08/2025 12:00 PM CDT Home Care Visit [facility] [address] [place] [address] Farideh Ross RN [place] SN - WOUND [...] 04/11/2025 1:30 PM CDT Home Care Visit [address] [address] Perri Lin, OPERATING ROOM MANAGER 04/13/2025 1:00 AM CDT Home Care Visit [address] [address] Catrachita Alberts PT [place] 04/13/2025 1:00 AM CDT Home Care Visit [address] [address] Farideh Ross, RN [place] 04/14/2025 1:00 AM CDT Home Care Visit [address] [address] Vivian Holman OTA [place] 04/15/2025 1:00 AM CDT Home Care Visit [address] [address] Farideh Ross RN [place] 04/15/2025 2:00 AM CDT Home Care Visit [address] [address] Vivian Holman OTA [place] 04/18/2025 1:00 AM CDT Home Care Visit [address] [address] Farideh Ross, RN [place] 04/22/2025 1:00 AM CDT Home Care Visit [address] [address] Farideh Ross, RN [place] 04/27/2025 1:00 AM CDT Home Care Visit [address] [address] Farideh Ross, RN [place] 05/04/2025 1:00 AM CDT Home Care Visit [address] [address] Farideh Ross RN [place] 05/11/2025 1:00 AM CDT Home Care Visit [address] [address] Farideh Ross, DEVORAH CARDONA 05/18/2025 1:00 AM CDT Appointment [facility] [address] [place] [address] Farideh Ross, DEVORAH [place] documented as of this encounter Visit Diagnoses Not on filedocumented in this encounter Care Teams Quality Checker Relationship Specialty Start Date End Date Galina Evans MD [facility] [address] [place] [address] PCP - General Family Medicine 03/08/25 documented as of this encounter
--- OUTSIDE RECORDS SUMMARY | 2025-04-08 16:49 | XMS_ITS | Encounter Summary ---
Author Organization [facility] Address [address] [place] [address] Phone Care Team Providers Care Digester Operator Helper Name Role Phone Galina Evans MD Primary Care Provider Reason for Visit * Auth/Cert (Routine) Specialty Diagnoses / Procedures Referred By Contac t Referred To Contact Referral ID Status Reason Start Date Expiration Date Visits Re quested Visits Authorized [id number] Encounter Details Date Type Department Care Team (Late st Contact Info) Description 04/07/2025 2:00 PM CDT Home Care Visit [facility] [address] [place] [address] Vivian Holman, JETHRO [place] OT - HOME VISIT Social History Tobacco [...] 04/11/2025 1:30 PM CDT Home Care Visit [address] [address] Perri Lin, PRESIDENT AND CHIEF EXECUTIVE OFFICER 04/13/2025 1:00 AM CDT Home Care Visit [address] [address] Catrachita Alberts PT [place] 04/13/2025 1:00 AM CDT Home Care Visit [address] [address] Farideh Ross, RN [place] 04/14/2025 1:00 AM CDT Home Care Visit [address] [address] Vivian Holman OTA [place] 04/15/2025 1:00 AM CDT Home Care Visit [address] [address] Farideh Ross RN [place] 04/15/2025 2:00 AM CDT Home Care Visit [address] [address] Vivian Holman JETHRO [place] 04/18/2025 1:00 AM CDT Home Care Visit [address] [address] Farideh Ross RN [place] 04/22/2025 1:00 AM CDT Home Care Visit [address] [address] Farideh Ross RN [place] 04/27/2025 1:00 AM CDT Home Care Visit [address] [address] Farideh Ross, RN [place] 05/04/2025 1:00 AM CDT Home Care Visit [address] [address] Farideh Ross RN [place] 05/11/2025 1:00 AM CDT Home Care Visit [address] [address] Farideh Ross RN [place] 05/18/2025 1:00 AM CDT Appointment [facility] [address] [place] [address] Farideh Ross RN [place] documented as of this encounter Visit Diagnoses [...] goals the following were identified. Patient Centered Dock Supervisor Goal: to get stronger and return to independent level of function Target date: within 4 weeks OCCUPATIONAL THERAPY EVALUATION ORDER (O) No OT Balance Description: Dock Supervisor Goal: Patient will demonstrate dynamic standing balance [...] from [facility] on 03/08/25 and admitted to [facility] on 03/10/25. Patient was discharged from [facility] on 5. Patient lives with his [...] noted. documented in this encounter Care Teams Digester Operator Helper Relationship Specialty Start Date End Date Galina Evans MD [address] [facility] [address] [place] [address] PCP - General Family Medicine 03/08/25 documented as of this encounter
--- OUTSIDE RECORDS SUMMARY | 2025-04-08 16:49 | XMS_ITS | Clinical Summary ---
Author Organization [facility] Address [address] [place] [address] Phone Care Team Providers Care Photographer Apprentice Lithographic Name Role Phone Galina Evans MD Primary [...] 12:00 PM CDT Home Care Visit [facility] [address] [place] [address] Farideh Ross RN SN - WOUND VISIT 04/07/2025 2:30 PM CDT Home Care Visit [address] [address] Perri Lin, WATERSHED TENDER PT - HOME VISIT 04/07/2025 2:00 PM CDT Home Care Visit [address] [address] Vivian Holman, WIND TURBINE BLADE REPAIR TECHNICIAN OT - HOME VISIT 04/06/2025 2:00 PM CDT Home Care Visit [address] [address] Farideh Ross, RN SN - WOUND VISIT 04/05/2025 2:00 PM CDT Home Care Visit [address] [address] Vivian Holman, JETHRO OT - HOME VISIT 04/05/2025 1:00 PM CDT Home Care Visit [address] [address] Perri Lin, WATERSHED TENDER PT - HOME VISIT 04/04/2025 3:00 PM CDT Home Care Visit [address] [address] Farideh Ross, RN SN - WOUND VISIT 04/01/2025 4:00 PM CDT Home Care Visit [address] [address] Farideh Ross, RN SN - WOUND VISIT 04/01/2025 11:00 AM CDT Home Care Visit [address] [address] Perri Lin, WATERSHED TENDER PT - HOME VISIT 03/30/2025 11:00 AM CDT Home Care Visit [address] [address] Vivian Holman, JETHRO OT - HOME VISIT 03/30/2025 11:00 AM CDT Home Care Visit [address] [address] Farideh Ross, RN SN - WOUND VISIT 03/29/2025 11:00 AM CDT Home Care Visit [address] [address] Catrachita Alberts PT PT - INITIAL EVALUATION 03/28/2025 4:00 PM CDT Home Care Visit [address] [address] Farideh Ross, RN SN - WOUND VISIT 03/28/2025 12:30 PM CDT Home Care Visit [address] [address] Carol Mendoza OT OT - INITIAL EVALUATION 03/25/2025 3:00 PM CDT Home Care Visit [address] [address] Farideh Ross, RN SN - OASIS START OF CARE 03/25/2025 Plan of Care Documentation [address] [address] 03/23/2025 Home Care Visit [address] [address] Charisma Lao, DEVORAH TELEPHONE ENCOUNTER from Last [...] 1:30 PM CDT Home Care Visit [address] [address] Perri Lin, WATERSHED TENDER 04/13/2025 1:00 AM CDT Home Care Visit [address] [address] Catrachita Alberts, PT [place] 04/13/2025 1:00 AM CDT Home Care Visit [address] [address] Farideh Ross RN [place] 04/14/2025 1:00 AM CDT Home Care Visit [address] [address] Vivian Holman OTA [place] 04/15/2025 1:00 AM CDT Home Care Visit [address] [address] Farideh Ross RN [place] 04/15/2025 2:00 AM CDT Home Care Visit [address] [address] Vivian Holman OTA [place] 04/18/2025 1:00 AM CDT Home Care Visit [address] [address] Farideh Ross RN [place] 04/22/2025 1:00 AM CDT Home Care Visit [address] [address] Farideh Ross RN [place] 04/27/2025 1:00 AM CDT Home Care Visit [address] [address] Farideh Ross RN [place] 05/04/2025 1:00 AM CDT Home Care Visit [facility] [address] [place] [address] Farideh Ross RN [place] 05/11/2025 1:00 AM CDT Home Care Visit [facility] [address] [place] [address] Farideh Ross RN [place] 05/18/2025 1:00 AM CDT [facility] [address] [place] [address] Farideh Ross RN [place] Insurance [place]IC[place] Advance Directives * Full Code (Latest Code Status on File) Date Activated Date Inactivated Comments 03/25/2025 5:58 PM Care Teams Photographer Apprentice Lithographic Relationship Specialty Start Date End Date Galina Evans MD [address] [place] [address] [address] [place] [address] PCP - General Family Medicine 03/08/25
--- OUTSIDE RECORDS SUMMARY | 2025-04-08 16:49 | XMS_ITS | Clinical Summary ---
Author Organization [facility] Address [address] [place] [address] Care Team Providers Care Seasonal Customer Service Associate Name Role Phone Hector Rhodes MD Primary Care Provider [phone] Source Comments [facility],non-owned Affiliates and Associated Physician Practices is amultiple site organization consisting of ambulatory clinics and hospital sitesin [place], [place], [place] and [place]. This disclosure is being madepursuant to the Care Everywhere program and may not contain all information available regarding this patient. Last updated 18.[facility] Allergies Active Allergy Reactions Criticality Noted Date [...] (one) tablet by mouth at bedtime Active Rio-3 Fatty Acids (FISH OIL) 1000 MG capsule [...] but was denied so patient discharged w/ [facility] and wheeled walker. Assessment & Plan (03/07/2025 [...] but was denied so patient discharged w/ [facility] and wheeled walker. Assessment & Plan (03/07/2025 [...] but was denied so patient discharged w/ [facility] and wheeled walker. Assessment & Plan (03/07/2025 [...] Team Description 03/09/2025 Telephone Transitional Care at [address] [address] Juana Castro, senior management consultant 03/09/2025 Telephone Transitional Care at [address] [address] Juana Castro, senior management consultant 03/09/2025 Telephone Transitional Care at [address] [address] Juana Castro, senior management consultant 03/01/2025 5:45 PM CDT - 03/08/2025 2:07 PM CDT Hospital Encounter [facility] 8S ACUTE [address] [place] [address] Ganesh Charles, DO Desmond, MD Danya Bruce Hafiz Muhammad, MD Felgenhauer, Joshua, MD Smutz, Kellen J, DO Emergency Medicine Discharge Disposition: Home Health Care [facility] 03/01/2025 Travel from Last 3 Months Social [...] and heating? Not hard at all 03/02/2025 [facility] [place] [facility] Occup[facility] ional [facility] - Occupational Stress [...] any time in the past 12 m [facility], were you homeless or living in a long-term (including now)? No 03/02/2025 Sex and Gender [...] Management General On track( 019 9:32 AM GEOGRAPHIC INFORMATION SYSTEMS ANALYST) Ramu Celestin RN Note: Expected end date: [...] 4.0 - 10.7 x10E9/L 03/08/2025 9:17 AM [facility] RBC Count 4.83 4.30 - 5.80 x10E12/L 03/08/2025 9:17 AM [facility] Hemoglobin 12.0(L) 13.3 - 17.5 g/dL 03/08/2025 9:17 AM [facility] Hematocrit 36.0(L) 38.7 - 51.1 % 03/08/2025 9:17 AM [facility] MCV 74.5(L) 80.0 - 98.0 fL 03/08/2025 9:17 AM [facility] MCH 24.8(L) 26.7 - 33.6 pg 03/08/2025 9:17 AM [facility] MCHC 33.3 31.7 - 36.3 g/dL 03/08/2025 9:17 AM [facility] RDW-CV 15.2(H) 11.3 - 14.8 % 03/08/2025 9:17 AM [facility] Platelet Count 282 150 - 420 x10E9/L 03/08/2025 9:17 AM [facility] MPV 10.4 7.8 - 11.4 fL 03/08/2025 9:17 AM [facility] Blood BLOOD SPECIMEN / Unknown Lab Venipuncture / Unknown 03/08/2025 8:35 AM CDT 03/08/2025 8:57 AM CDT us Forrest Welch MD LAB - HEMATOLOGY ORDERABLE S Final Result [facility] [address] [place] [address], [facility] [[email or web address]] [phone] * (ABNORMAL) BASIC METABOLIC PANEL (CALCIUM TOTAL) (03/08/2025 8:35 AM CDT) Only the most recent of5 resultswithin the time period is included. BUN 12 7 - 26 mg/dL 03/08/2025 9:32 AM [facility] Creatinine 0.72 0.71 - 1.16 mg/dL 03/08/2025 9:32 AM [facility] Sodium 137 136 - 145 mmol/L 03/08/2025 9:32 AM [facility] Potassium 3.2(L) 3.5 - 4.5 mmol/L 03/08/2025 9:32 AM [facility] Chloride 111(H) 98 - 107 mmol/L 03/08/2025 9:32 AM [facility] CO2 23 22 - 29 mmol/L 03/08/2025 9:32 AM [facility] Glucose 150(H) 70 - 99 mg/dL 03/08/2025 9:32 AM [facility] Calcium 8.5 8.4 - 10.2 mg/dL 03/08/2025 9:32 AM [facility] Anion Gap 3(L) 6 - 16 03/08/2025 9:32 AM [facility] BUN/Creatinine Ratio 17 7 - 23 03/08/2025 9:32 AM [facility] Osmolality Calculated 287 275 - 295 mOsm/kg 03/08/2025 9:32 AM [facility] eGFR by CKD-EPI >90 >=90 mL/min/1.7 3 m2 03/08/2025 9:32 AM [facility] Blood BLOOD SPECIMEN / Unknown Lab Venipuncture / Unknown 03/08/2025 8:35 AM CDT 03/08/2025 8:57 AM CDT Narrative [facility] - 03/08/2025 9:32 AM CDT Estimated Glomerular Filtration Rate (eGFR) calculated using the CKD-EPI Creatinine Equation (2020), per the National Kidney Foundation and [place] Society of Nephrology recommendations. Forrest Welch MD LAB - CHEMISTRY ORDERABLES Final Result Performing Organization Address City/[facility]/ZIP Co de Phone Number [address] [address], [facility] [[email or web address]] [phone] * (ABNORMAL) PHOSPHORUS BLOOD (03/08/2025 8:35 AM CDT) Only the most recent of5 resultswithin the time period is included. Phosphorus 2.4(L) 2.8 - 5.1 mg/dL 03/08/2025 9:32 AM CDT [facility] Blood BLOOD SPECIMEN / Unknown Lab Venipuncture / Unknown 03/08/2025 8:35 AM CDT 03/08/2025 8:57 AM CDT Forrest Welch MD LAB - CHEMISTRY ORDERABLES Final Result Performing Organization Address City/[facility]/ZIP Co de Phone Number [address] [address], [facility] [[email or web address]] [phone] * MAGNESIUM BLOOD (03/08/2025 8:35 AM CDT) Only the most recent of6 resultswithin the time period is included. Magnesium 2.1 1.6 - 2.6 mg/dL 03/08/2025 9:32 AM CDT [facility] Blood BLOOD SPECIMEN / Unknown Lab Venipuncture / Unknown 03/08/2025 8:35 AM CDT 03/08/2025 8:57 AM CDT Forrest Welch MD LAB - CHEMISTRY ORDERABLES Final Result Performing Organization Address City/[facility]/ZIP Co de Phone Number [address] [address], [place] [phone] * CARDIAC EKG ORDER (03/07/2025 11:01 AM CDT) Narrative 03/07/2025 11:01 AM CDT Ordered by an unspecified provider. us Scanned Document CARDIAC SERVICES ORDERABLES Fin al Result * VANCOMYCIN LEVEL TROUGH (03/05/2025 8:45 PM CDT) Only the most recent of2 resultswithin the time period is included. Vancomycin Trough 16.3 10.0 - 20.0 ug/mL 03/05/2025 10:10 PM CDT [facility] Blood BLOOD SPECIMEN / Unknown Venipuncture / Unknown 03/05/2025 8:45 PM CDT 03/05/2025 8:50 PM CDT Narrative [facility] - 03/05/2025 10:10 PM CDT See institution protocol. us Forrest Welch MD LAB - CHEMISTRY ORDERABLES Final Result [address] [address], [place] [phone] * GLUCOSE - POINT OF CARE (03/03/2025 4:20 PM CDT) Only the most recent of3 resultswithin the time period is included. Glucose WB/POC 96 70 - 99 mg/dL 03/03/2025 4:25 PM CDT [facility] Specimen Type Arterial/C apillary 03/03/2025 4:25 PM CDT [facility] Blood BLOOD SPECIMEN / Unknown 03/03/2025 4:20 PM CDT 03/03/2025 4:25 PM CDT Forrest Welch MD LAB - POINT OF CARE ORDERA BLES Final Result [address] [address], [place] [phone] * US Abdomen Ltd W Comp Doppler [...] report was drafted by Iglesia Peter MD (nursing resident) 03/03/2025 1:18 PM. I, Jeffrey Brock have personally reviewed and interpreted this examination/study. > Interpreting Provider: Jeffrey Brock on 03/03/2025 2:55 PM Narrative 03/03/2025 2:55 PM CDT PROCEDURE: US ABDOMEN LTD W COMP DOPPLER, DATE/TIME OF EXAM: 03/03/2025 12:01 PM, LOCATION [facility] INDICATION: R41.82: Altered mental status, unspecified [...] DATE/TIME OF EXAM: 03/03/2025 12:01 PM, LOCATION [facility] INDICATION: R41.82: Altered mental status, unspecified [...] report was drafted by Iglesia Peter MD (nursing resident) 03/03/2025 1:18 PM. Jeffrey Rosales have personally [...] report was drafted by Iglesia Peter MD (nursing resident) 03/02/2025 12:12 PM. Austin Rosales MD have personally reviewed and interpreted this examination/study. > Interpreting Provider: Austin Enriquez MD on 03/02/2025 6:08 PM Narrative 03/02/2025 6:08 PM CDT PROCEDURE: US SCROTUM W DOPPLER, DATE/TIME OF EXAM: 03/02/2025 10:41 AM, LOCATION [facility] INDICATION: R41.82: Altered mental status, unspecified [...] DOPPLER, DATE/TIME OF EXAM: 03/02/2025 10:41AM, LOCATION [facility] INDICATION: R41.82: Altered mental status, unspecified [...] report was drafted by Iglesia Peter MD (nursing resident) 03/02/2025 12:12 PM. IAustin MD have personally reviewed and interpreted this examination/study. > Interpreting Provider: Austin Enriquez MD on 03/02/2025 6:08 PM us Roger Hagan MD ORDERABLES Final R esult * (ABNORMAL) COMPREHENSIVE METABOLIC PANEL (03/02/2025 4:27 AM CDT) Only the most recent of2 resultswithin the time period is included. BUN 12 7 - 26 mg/dL 03/02/2025 6:10 AM CDT [facility] Creatinine 1.01 0.71 - 1.16 mg/dL 03/02/2025 6:10 AM CDT [facility] Sodium 135(L) 136 - 145 mmol/L 03/02/2025 6:10 AM [facility] Potassium 3.8 3.5 - 4.5 mmol/L 03/02/2025 6:10 AM [facility] Chloride 110(H) 98 - 107 mmol/L 03/02/2025 6:10 AM [facility] CO2 17(L) 22 - 29 mmol/L 03/02/2025 6:10 AM [facility] Glucose 100(H) 70 - 99 mg/dL 03/02/2025 6:10 AM [facility] Calcium 8.2(L) 8.4 - 10.2 mg/dL 03/02/2025 6:10 AM [facility] Protein Total 6.7 6.0 - 8.3 g/dL 03/02/2025 6:10 AM [facility] Albumin 2.7(L) 3.4 - 5.0 g/dL 03/02/2025 6:10 AM [facility] Bilirubin Total 1.5(H) 0.2 - 1.2 mg/dL 03/02/2025 6:10 AM [facility] Alkaline Phosphatase 84 40 - 150 U/L 03/02/2025 6:10 AM [facility] ALT 25 5 - 55 U/L 03/02/2025 6:10 AM [facility] AST 44(H) 5 - 34 U/L 03/02/2025 6:10 AM [facility] Anion Gap 8 6 - 16 03/02/2025 6:10 AM [facility] BUN/Creatinine Ratio 12 7 - 23 03/02/2025 6:10 AM [facility] Osmolality Calculated 280 275 - 295 mOsm/kg 03/02/2025 6:10 AM [facility] Albumin/Globulin Ratio 0.7(L) 1.1 - 2.3 03/02/2025 6:10 AM [facility] eGFR by CKD-EPI 80(L) >=90 mL/min/1.7 3 m2 03/02/2025 6:10 AM [facility] Blood BLOOD SPECIMEN / Unknown Venipuncture / Unknown 03/02/2025 4:27 AM CDT 03/02/2025 5:41 AM CDT [facility] - 03/02/2025 6:10 AM CDT Estimated Glomerular Filtration Rate (eGFR) calculated using the CKD-EPI Creatinine Equation (2020), per the National Kidney Foundation and [place] Society of Nephrology recommendations. Roger Hagan MD LAB - CHEMISTRY ORDERAB LES Final Result [facility] [address] [place] [address], [facility] [[email or web address]] [phone] * (ABNORMAL) BLOOD GASES VICTOR M + COOX PANEL (03/02/2025 12:37 AM CDT) pH Venous 7.39 7.32 - 7.42 pH 03/02/2025 12:43 AM [facility] pO2 Venous 65(H) 35 - 40 mmHg 03/02/2025 12:43 AM [facility] pCO2 Venous 29(L) 40 - 50 mmHg 03/02/2025 12:43 AM [facility] HCO3 Venous 17.6(L) 20 - 30 mmol/L 03/02/2025 12:43 AM [facility] Base Excess Venous -6.2(L) -2.0 - 2.0 mmol/L 03/02/2025 12:43 AM [facility] Oxyhemoglobin Venous 91.5 % 02/13 12:43 AM [facility] Deoxyhemoglobin (HHB) Venous % 5.3 % 03/02/2025 12:43 AM [facility] Methemoglobin <0.8 0.0 - 2.0 % 03/02/2025 12:43 AM [facility] Carboxyhemoglobin 2.5(H) 0.0 - 2.0 % 2024 12:43 AM [facility] O2 Content Venous 15.2 Interpret within clinical context ml/dL 03/02/2025 12:43 AM [facility] Hemoglobin by COOX 11.8(L) 12.0 - 17.6 g/dL 03/02/2025 12:43 AM [facility] O2 Saturation Venous 95 >=70 % 02/13 12:43 AM [facility] FI O2 Mixed Venous 21.0 % 2024 12:43 AM [facility] Blood BLOOD SPECIMEN / Unknown Venipuncture / Unknown 03/02/2025 12:37 AM CDT 03/02/2025 12:40 AM CDT Narrative [facility] - 03/02/2025 12:43 AM T Carboxyhemoglobin Normal Concentration: Non-smokers: 0-2%; Smokers: 0-9%; Toxic: >20% us Roger Hagan MD LAB - BLOOD GASES ORDER KATYA Final Result Performing Organization Address City/State/[facility] Co de Phone Number [facility] [address] [place] [address], [facility] [[email or web address]] [phone] * URINE DRUG SCREEN IMMUNOASSAY (03/02/2025 12:37 AM [facility] NAMED [facility]) [facility] Amphetamines Screen Urine Negative Negative: < 1000 ng/mL 03/02/2025 12:59 AM [facility] Barbiturates Screen Urine Negative Negative: < 200 ng/mL 03/02/2025 12:59 AM [facility] Benzodiazepine Screen Urine Negative Negative: < 200 ng/mL 03/02/2025 12:59 AM [facility] Opiates Urine Negative Negative: < 300 ng/mL 03/02/2025 12:59 AM [facility] Cocaine Metabolites Urine Negative Negative: < 300 ng/mL 03/02/2025 12:59 AM [facility] Phencyclidine Screen Urine Negative Negative: < 25 ng/ml 03/02/2025 12:59 AM [facility] Cannabinoids Screen Urine Negative Negative: <50 ng/mL 03/02/2025 12:59 AM [facility] Methadone Screen Urine Negative Negative: < 300 ng/mL 03/02/2025 12:59 AM [facility] Fentanyl Screen Urine Negative Negative: <1.5 ng/mL 03/02/2025 12:59 AM [facility] Urine URINE / Unknown Collection / Unknown 03/02/2025 12:37 AM CDT 03/02/2025 12:40 AM CDT Narrative [facility] - 03/02/2025 12:59 AM CDT The Urine Toxicology Screening Panel does not screen for Propoxyphene, Meprobamate, Carisoprodol, Trazodone, vepl-xvv-kyrbaus medications and/or volatiles (Acetone, Isopropanol, Methanol or Ethylene Glycol). Ethanol, Salicylate, Acetaminophen, Tricyclic Antidepressants and several therapeutic drugs may be individually assayed in serum or plasma specimen. Toxicology testing by the [facility] is an aid to medical diagnosis and treatment of patients. No documented chain of custody was maintained. Results are intended to be used for clinical purposes only. us Roger Hagan MD LAB - URINE CHEMISTRY O RDERABLES Final Result Performing Organization Address [facility]/ZIP Co de Phone Number [address] [address], [facility] [[email or web address]] [phone] * LACTIC ACID BLOOD (03/02/2025 12:37 AM CDT) [facility] Lactic Acid-Stat 1.1 <=2.0 mmol/L 03/02/2025 1:08 AM CDT [facility] Blood BLOOD SPECIMEN / Unknown Venipuncture / Unknown 03/02/2025 12:37 AM CDT 03/02/2025 12:42 AM CDT us Roger Hagan MD LAB - CHEMISTRY ORDERAB LES Final Result Performing Organization Address [facility]/ZIP Co de Phone Number [address] [address], [place] [phone] * EKG 12-LEAD (03/02/2025 12:28 AM CDT) Ventricular Rate 76 BPM [facility] MUSE Atrial Rate 76 BPM [facility] MUSE P-R Interval 164 ms [facility] MUSE QRS Duration ms 92 ms [facility] MUSE Q-T Interval ms 402 ms [facility] MUSE QTC Calculation (Bezet) 452 ms [facility] MUSE Calculated P Rye 63 degrees [facility]USE Calculated R Rye -20 degrees [facility] Calculated T Rye -23 degrees [facility]USE Interpretation EKG NORMAL SINUS RHYTHM POSSIBLE LEFT ATRIAL ENLARGEMENT NONSPECIFIC ST AND T WAVE ABNORMALITY ABNORMAL ECG NO PREVIOUS ECGS AVAILABLE Confirmed by ELIZABETH LILLY DO ([id number]) on 03/03/2025 1:32:24 PM [facility] MUSE 03/02/2025 12:2 8 AM CDT 03/03/2025 1:32 PM CDT us Roger Hagan MD ECG ORDERABLES Edited Result - Final [facility] MUSE * XR CHEST 1VW PORTABLE (03/02/2025 12:10 AM CDT) Anatomical Region Laterality Modality Chest Digital Radiogra phy 03/02/2025 11:0 0 AM CDT Narrative 03/03/2025 3:01 PM CDT PROCEDURE: XR CHEST 1VW PORTABLE, DATE/TIME OF EXAM: 03/02/2025 12:10 AM, LOCATION [facility] INDICATION: R41.82: Altered mental status, unspecified [...] acute bony abnormality. > Dictated by Edouard UMHAMMAD, FRCR (interventional radiology tech). I, Do Patterson MD have personally reviewed and interpreted this examination/study. > Interpreting Provider: Do Patterson MD on 03/03/2025 3:01 PM Procedure Note Do Patterson MD - 03/03/2025 PROCEDURE: XR CHEST 1VW PORTABLE, DATE/TIME OF EXAM: 03/02/2025 12:10AM, LOCATION [facility] INDICATION: R41.82: Altered mental status, unspecified [...] acute bony abnormality. > Dictated by Edouard [facility] (interventional radiology tech). I, Do Patterson MD have personally reviewed and interpreted this examination/study. > Interpreting Provider: Do Patterson MD on 03/03/2025 3:01 PM Roger Hagan MD DIAGNOSTIC IMAGING ORDE [facility] Final Result * (ABNORMAL) URINALYSIS W/MICROSCOPIC NO CULTURE (03/01/2025 10:21 PM CDT) Color UA Yellow Yellow, Straw 03/01/2025 10:55 PM [facility] Clarity UA Clear Clear 03/01/2025 10:55 PM [facility] Glucose UA Normal Normal 03/01/2025 10:55 PM [facility] Bilirubin UA Negative Negative 03/01/2025 10:55 PM [facility] Ketone UA Negative Negative 03/01/2025 10:55 PM [facility] Specific [place] UA >1.050(H) 1.005 - 1.030 03/01/2025 10:55 PM [facility] Blood UA Negative Negative 03/01/2025 10:55 PM [facility] pH UA 5.5 5.0 - 8.0 03/01/2025 10:55 PM [facility] Protein UA Negative Negative 03/01/2025 10:55 PM [facility] Urobilinogen UA 6.0(A) Normal mg/dL 025 10:55 PM [facility] Nitrite UA Negative Negative 03/01/2025 10:55 PM [facility] Leukocyte Esterase UA Negative Negative 03/01/2025 10:55 PM [facility] RBC UA None Seen 0 - 5 # /hpf 03/01/2025 10:55 PM CDT [facility] WBC UA 0-5 0 - 5 # /hpf 03/01/2025 10:55 PM CDT [facility] Bacteria UA None Seen None Seen 03/01/2025 10:55 PM CDT [facility] Squamous Epithelial Cells 0-2 0 - 5 /hpf 03/01/2025 10:55 PM CDT [facility] Mucus UA 1+ /LPF 03/01/2025 10:55 PM CDT [facility] Urine URINE SPECIMEN OBTAINED BY CLEAN CATCH PROCEDURE / Unknown Collection / Unknown 03/01/2025 10:21 PM CDT 03/01/2025 10:25 PM CDT Yehuda Gale MD LAB - URINALYSIS ORDERABLES Angie schaefer Result [address] [address], [facility] [[email or web address]] [phone] * CT Abdomen Pelvis W Contrast (03/01/2025 [...] > Dictated by Miguel Angel Chow MD (interventional radiology tech). IAustin MD have personally reviewed and interpreted this examination/study. > Interpreting Provider: Austin Enriquez MD on 03/02/2025 8:32 AM Narrative 03/02/2025 8:32 AM CDT PROCEDURE: CT ABDOMEN PELVIS W CONTRAST, DATE/TIME OF EXAM: 03/01/2025 9:14 PM, LOCATION [facility] INDICATION: R41.82: Altered mental status, unspecified [...] DATE/TIME OF EXAM: 03/01/2025 9:14 PM, LOCATION [facility] INDICATION: R41.82: Altered mental status, unspecified [...] > Dictated by Miguel Angel Chow MD (interventional radiology tech). I, Austin Enriquez MD have personally reviewed and interpreted this examination/study. > Interpreting Provider: Austin Enriquez MD on 03/02/2025 8:32 [address] ORDERABLES Final Result * TROPONIN-I HIGH SENSITIVE REFLEX 1HOUR (03/01/2025 7:22 PM CDT) Troponin I High Sensitive 4 <=35 ng/L 03/01/2025 8:02 PM CDT [facility] Delta Troponin I HS 0 <6 ng/L 03/01/2025 8:02 PM CDT [facility] Blood BLOOD SPECIMEN / Unknown Venipuncture / Unknown 03/01/2025 7:22 PM CDT 03/01/2025 7:22 PM CDT Yehuda Gale MD LAB - CHEMISTRY ORDERABLES Final Result [facility] [address] [place] [address], [facility] [[email or web address]] [phone] * XR Chest 1Vw (03/01/2025 6:59 PM CDT) Anatomical Region Laterality Modality Chest Digital Radiogra phy 03/01/2025 7:47 PM CDT Narrative 03/02/2025 11:39 AM CDT PROCEDURE: XR CHEST 1VW, DATE/TIME OF EXAM: 03/01/2025 6:59 PM, LOCATION [facility] INDICATION: R41.82: Altered mental status, unspecified [...] intact. Report dictated by Thomas Asif MD, (Physician Assistant Surgery). IBeth MD have personally reviewed and interpreted this examination/study. > Interpreting Provider: Beth Gorman MD on 03/02/2025 11:39 AM Procedure Note Beth Gorman MD - 03/02/2025 PROCEDURE: XR CHEST 1VW, DATE/TIME OF EXAM: 03/01/2025 6:59 PM, LOCATION [facility] INDICATION: R41.82: Altered mental status, unspecified [...] intact. Report dictated by Thomas Asif MD, (Physician Assistant Surgery). Beth Rosales MD have personally reviewed and [...] infarction. > Dictated by Thomas Asif MD, (interventional radiology tech). Destini Rosales MD have personally reviewed and interpreted this examination/study. > Interpreting Provider: Destini Mar MD on 03/01/2025 11:46 PM Narrative 03/01/2025 11:46 PM CDT PROCEDURE: CT HEAD WO CONTRAST, DATE/TIME OF EXAM: 03/01/2025 6:47 PM, LOCATION [facility] INDICATION: R41.82: Altered mental status, unspecified [...] DATE/TIME OF EXAM: 03/01/2025 6:47 PM, LOCATION [facility] INDICATION: R41.82: Altered mental status, unspecified [...] infarction. > Dictated by Thomas Asif MD, (interventional radiology tech). Destini Rosales MD have personally reviewed and interpretedthis examination/study. > Interpreting Provider: Destini Mar MD on 03/01/2025 11:[address] ORDERABLES Final Result * CULTURE BLOOD (03/01/2025 6:12 PM CDT) Only the most recent of2 resultswithin the time period is included. Pathologist [facility] Culture No growth day 5 DELIA 03/07/2025 12:01 AM CDT [facility] MICRO[facility]OLOG[facility] Blood PERIPHERAL BLOOD / Unknown Venipuncture / Unknown 03/01/2025 6:12 PM CDT 03/01/2025 6:29 PM CDT Yehuda Gale MD LAB - MICROBIOLOGY ORDERABLES Fi nal Result [facility]CRO[facility]OLOG[facility] [address] [place] [address], [facility] [[email or web address]] [phone] * (ABNORMAL) PT-INR [facility] (03/01/2025 6:00 PM CDT) Pathologist [facility] PT 18.5(H) 12.1 - 14.8 Seconds 03/01/2025 7:00 PM CDT [facility] INR 1.6 See Comment 03/01/2025 7:00 PM CDT [facility] Comment:The suggested therap eutic range for standard coumadin (warfarin) therapy is an INR of 2.0-3.0. For high-risk patients (Mechanical Mitral Valve Prosthesis, etc.), the suggested prophylactic therapeutic range is an INR of 2.5-3.5. Blood BLOOD SPECIMEN / Unknown Venipuncture / Unknown 03/01/2025 6:00 PM CDT 03/01/2025 6:29 PM CDT Yehuda Gale MD LAB - COAGULATION ORDERABLES Fin al Result [facility] [address] [place] [address], [place] [phone] * LACTIC ACID BLOOD REFLEX TO REPEAT (03/01/2025 6:00 PM CDT) Pathologist [facility] [facility] Lactic Acid-Stat 1.6 <=2.0 mmol/L 03/01/2025 7:04 PM CDT [facility] Blood BLOOD SPECIMEN / Unknown Venipuncture / Unknown 03/01/2025 6:00 PM CDT 03/01/2025 6:30 PM CDT us Yehuda Gale MD LAB - CHEMISTRY ORDERABLES Final Result Performing Organization Address [facility]/ZIP Co de Phone Number [address] [address], [facility] [[email or web address]] [phone] * TROPONIN-I HIGH SENSITIVE BASELINE + 1HR (03/01/2025 6:00 PM CDT) Pathologist [facility] Troponin I High Sensitive 4 <=35 ng/L 03/01/2025 7:12 PM T [facility] Blood BLOOD SPECIMEN / Unknown Venipuncture / Unknown 03/01/2025 6:00 PM CDT 03/01/2025 6:30 PM CDT Yehuda Gale MD LAB - CHEMISTRY ORDERABLES Final Result Performing Organization Address [facility]/ZIP Co de Phone Number [address] [address], [facility] [[email or web address]] [phone] * (ABNORMAL) CBC W AUTO DIFFERENTIAL (03/01/2025 6:00 PM CDT) [facility] WBC 14.8(H) 4.0 - 10.7 x10E9/L 03/01/2025 7:06 PM [facility] RBC Count 5.01 4.30 - 5.80 x10E12/L 03/01/2025 7:06 PM [facility] Hemoglobin 12.7(L) 13.3 - 17.5 g/dL 03/01/2025 7:06 PM [facility] Hematocrit 37.1(L) 38.7 - 51.1 % 03/01/2025 7:06 PM [facility] MCV 74.1(L) 80.0 - 98.0 fL 03/01/2025 7:06 PM [facility] MCH 25.3(L) 26.7 - 33.6 pg 03/01/2025 7:06 PM [facility] MCHC 34.2 31.7 - 36.3 g/dL 03/01/2025 7:06 PM [facility] RDW-CV 14.4 11.3 - 14.8 % 03/01/2025 7:06 PM [facility] Platelet Count 142(L) 150 - 420 x10E9/L 03/01/2025 7:06 PM [facility] MPV 9.9 7.8 - 11.4 fL 03/01/2025 7:06 PM [facility] Neutrophil % 89.2(H) 41.0 - 74.0 % 03/01/2025 7:06 PM [facility] Lymphocyte % 2.4(L) 17.0 - 47.0 % 03/01/2025 7:06 PM [facility] Monocyte % 6.6 3.0 - 11.0 % 03/01/2025 7:06 PM [facility] Eosinophil % 0.5 0.0 - 7.0 % 03/01/2025 7:06 PM [facility] Basophil % 0.1 0.0 - 1.6 % 03/01/2025 7:06 PM [facility] Immature Granulocytes % 1.2(H) 0.0 - 1.0 % 03/01/2025 7:06 PM [facility] Neutrophil Absolute 13.16(H) 1.60 - 7.50 x10E9/L 03/01/2025 7:06 PM [facility] Lymphocyte Absolute 0.36(L) 1.00 - 4.40 x10E9/L 03/01/2025 7:06 PM [facility] Monocyte Absolute 0.98 0.15 - 1.00 x10E9/L 03/01/2025 7:06 PM [facility] Eosinophil Absolute 0.08 0.00 - 0.60 x10E9/L 03/01/2025 7:06 PM [facility] Basophil Absolute 0.02 0.00 - 0.13 x10E9/L 03/01/2025 7:06 PM [facility] Blood BLOOD SPECIMEN / Unknown Venipuncture / Unknown 03/01/2025 6:00 PM CDT 03/01/2025 6:30 PM CDT Yehuda Gale MD LAB - HEMATOLOGY ORDERABLES Angie l Result [address] [address], [place] [phone] * AMMONIA (03/01/2025 6:00 PM CDT) Ammonia 26 <=72 umol/L 03/01/2025 6:42 PM CDT [facility] Blood BLOOD SPECIMEN / Unknown Venipuncture / Unknown 03/01/2025 6:00 PM CDT 03/01/2025 6:28 PM CDT Yehuda Gale MD LAB - CHEMISTRY ORDERABLES Final Result Performing Organization Address City/[facility]/ZIP Co de Phone Number [address] [address], [place] [phone] from Last 3 Months Insurance SELF PAY [...] 11:50 PM 03/08/2025 3:17 PM Care Teams Seasonal Customer Service Associate Relationship Specialty Start Date End Date Hector Rhodes MD PCP - General Internal Medicine 12/17/18
--- OUTSIDE RECORDS SUMMARY | 2025-04-08 16:49 | XMS_ITS | Encounter Summary ---
Author Organization [facility] Address [address] [place] [address] Phone Care Team Providers Care Coin Teller Name Role Phone Galina Evans MD Primary Care Provider Reason for Visit * Auth/Cert (Routine) Specialty Diagnoses / Procedures Referred By Contac t Referred To Contact Referral ID Status Reason Start Date Expiration Date Visits Re quested Visits Authorized [id number] Encounter Details Date Type Department Care Team (Late st Contact Info) Description 04/07/2025 2:30 PM CDT [facility] [address] [place] [address] Perri Lin, KUSUM PT - HOME VISIT [...] 04/11/2025 1:30 PM CDT Home Care Visit [address] [address] Perri Lin, TREATER 04/13/2025 1:00 AM CDT Home Care Visit [address] [address] Catrachita Alberts PT [place] 04/13/2025 1:00 AM CDT Home Care Visit [address] [address] Farideh Ross, RN [place] 04/14/2025 1:00 AM CDT Home Care Visit [address] [address] Vivian Holman OTA [place] 04/15/2025 1:00 AM CDT Home Care Visit [address] [address] Farideh Ross RN [place] 04/15/2025 2:00 AM CDT Home Care Visit [address] [address] Vivian Holman [employer] STORE MANAGER [place] 04/18/2025 1:00 AM CDT Home Care Visit [address] [address] Farideh Ross RN [place] 04/22/2025 1:00 AM CDT Home Care Visit [address] [address] Farideh Ross RN [place] 04/27/2025 1:00 AM CDT Home Care Visit [address] [address] Farideh Ross, RN [place] 05/04/2025 1:00 AM CDT Home Care Visit [address] [address] Farideh Ross RN [place] 05/11/2025 1:00 AM CDT Home Care Visit [address] [address] Farideh Ross RN [place] 05/18/2025 1:00 AM CDT Appointment [facility] [address] [place] [address] Farideh Ross RN [place] documented as of [...] in order to be safe going to [facility]. To be met by 04/16/25. PT [...] floor when stepping down [facility]. Tolerance to activity: decreased assistance required PT [...] ongoing. documented in this encounter Care Teams Coin Teller Relationship Specialty Start Date End Date Galina Evans MD [address] [facility] [address] [place] [address] PCP - General Family Medicine 03/08/25 documented as of this encounter
[2025-04-08 17:00] VITALS: BP 126/77; PULSE 54; RESP 18; O2SAT 100
[2025-04-08 18:00] VITALS: BP 126/84; PULSE 60; RESP 18; TEMP 36.6; O2SAT 100
== END 2025-04-08 18:31 | disposition home or self-care (01) ==
PROVIDERS: Registered Nurse; Emergency Provider Emergency Medicine; PCP Family Medicine
DX: R33.9 Retention of urine, unspecified (principal); R82.998 Other abnormal findings in urine; I10 Essential (primary) hypertension; E78.5 Hyperlipidemia, unspecified; M10.9 Gout, unspecified
CPT/HCPCS: 51702; 81001; 87086; 99283